=== PATIENT | male | born 1950 | race Caucasian/White ===

== ENCOUNTER 2017-06-18 09:01 | Outpatient (CLI) | payer MEDICARE ==
[~2017-06-18 09:01] MED LIST: ISOVUE-370 76%-LOCM 1 ML ONE
--- NOTE | 2017-06-18 14:30 | CT ---
CT ANGIOGRAM THORAX WITH IV CONTAST AND 3D RECONSTRUCTIONS: Date: 06-18-17 History: Pre-operative evaluation for ablation. Patient has atrial fibrillation. History of aortic va lve. Comparison: None available. FINDINGS: There is a triple lead left subclavian AICD device with RA, RV and coronary sinus leads. Vascular calcifications are seen in the coronary arteries as well as involving the aortic arch and or igins of the great vessels. No filling defects are seen in the pulmonary arteries to suggest a pulmonary embolus. The heart is enlarged. There is reflux of contrast into the IVC and subsequently into hepatic veins, likely related to cardiac decompensation. The left ventricle does appear dilated. The thoracic aorta is not opacified for evaluation of an aortic dissection. Thoracic aorta is normal in caliber. There are increased interstitial densities seen bilaterally which are predominately noted at the ana maría phery of the lungs bilaterally, most compatible with chronic interstitial fibrotic lung changes. IMPRESSION: 1. No CT evidence of a pulmonary embolus. 2. Cardiomegaly with dilatation of the left ventricle. 3. Chronic interstitial fibrotic lung changes. POS: [facility]
== END 2017-06-18 09:02 | disposition home or self-care (01) ==
LOC: CT 09:01
PROVIDERS: ATTEND Internal Medicine Cardiovascular Disease
DX: Z01.818 Encounter for other preprocedural examination (principal); I48.91 Unspecified atrial fibrillation; R06.02 Shortness of breath; I51.7 Cardiomegaly; J84.9 Interstitial pulmonary disease, unspecified
CPT/HCPCS: 36415; 71275; 82565; 84520

== ENCOUNTER 2017-10-16 09:06 | Day surgery (SDC) | payer MEDICARE ==
[2017-10-15 10:50] VITALS: BMI 16.0
--- NOTE | 2017-10-16 12:07 | OP ---
DATE OF PROCEDURE: 10/16/2017 PROCEDURE PERFORMED: Esophagogastroduodenoscopy with Koch dilatation. PHYSICIAN: Dr. Sam. ANESTHESIA: Medication given per Anesthesiology Department. PREPROCEDURE DIAGNOSES: Dysphagia, weight loss. POSTPROCEDURE DIAGNOSES: 1. Normal esophagus, status post empiric dilatation. 2. Normal stomach and duodenum. PROCEDURE IN DETAIL: A written consent was obtained prior to procedure. After adequate sedation, th e forward-viewing endoscope was advanced down the stomach under direct vision to the second portion o f the duodenum. Both the second portion of the bulb appeared normal. Pylorus was patent. The gastr ic antrum, body, fundus, and cardia all appeared normal. GE junction was located at 40 cm and appear ed normal. The esophageal lumen appeared normal without any endoluminal lesion or mass. The scope w as removed. Dilation was performed using a 48 [place] Koch with no resistance. Dilatation was the n performed with a 54-Gu[place] Koch with mild resistance. Repeat endoscopy did not show any complic ation or bleeding. The patient tolerated the procedure well. ASSESSMENT: 1. Status post esophageal dilatation with 48 [place]alan and 54-Guatemalan Koch dilator. 2. Visually normal upper endoscopy. PLAN: Follow up office in 3-4 weeks.
== END 2017-10-16 13:10 | disposition home or self-care (01) ==
LOC: SDC 09:06
PROVIDERS: ATTEND Internal Medicine Gastroenterology
PROC: 0D758ZZ Dilation of Esophagus, Via Natural or Artificial Opening Endoscopic (ICD-10-PCS; principal; 2017-10-16)
DX: R13.10 Dysphagia, unspecified (principal); R63.4 Abnormal weight loss; Z98.890 Other specified postprocedural states

== ENCOUNTER 2017-12-17 07:45 | Inpatient (IN) | payer MEDICARE ==
[2017-12-17 08:25] LABS: #Basophils 0.1 thou/uL (0.0-0.2); #Eosinphils 0.1 thou/uL (0.0-0.7); #Lymphocytes 2.7 thou/uL (1.20-3.40); #Monocytes 0.8 thou/uL (0.11-0.59); #Neutrophils 5.2 thou/uL (1.40-6.50); %Basophils 1.5 % (0.0-1.0); %Eosinophils 1.2 % (0.0-10.0); %Lymphocytes 30.2 % (21.0-51.0); %Monocytes 9.1 % (0.0-10.0); Hemoglobin 13.8 g/dL (14.0-18.0); Mean Corpuscular HGB CONC 32.6 g/dL (32.0-36.0); Mean Corpuscular Hemoglobin 29.7 pg (27.0-31.0); Mean Platelet Volume 8.1 fL (7.4-10.4); Platelet Count 322 thou/uL (130-400); RBC Distribution Width 15.3 % (11.5-14.5); Red Blood Cell (RBC) Count 4.66 mill/uL (4.70-6.10); White Blood Cell (WBC) Count 8.9 thou/uL (4.8-10.8)
[2017-12-17 08:48] LABS: ALT (SGPT) 19 U/L (8-55); AST (SGOT) 25 U/L (5-34); Alkaline Phosphatase 93 U/L (40-150); Anion Gap 12 mmol/L (10-20); BUN (Urea Nitrogen) 18 mg/dL (8.4-25.7); Bilirubin, Total 0.5 mg/dL (0.2-1.2); Calc. Creatinine Clearance 0 mL/min (70-130); Calcium 8.7 mg/dL (7.8-10.44); Carbon Dioxide 21 mmol/L (23-31); Chloride 106 mmol/L (98-107); Estimated GFR-MDRD 79; Globulin 3.7 g/dL (2.4-3.5); Glucose 112 mg/dL (80-115); Potassium 5.7 mmol/L (3.5-5.1); Protein, Total 7.7 g/dL (5.8-8.1); Sodium 133 mmol/L (136-145)
[2017-12-17] MEDS ORDERED: Nitroglycerin 2% Ointment 1 INCH/1 GM Packet ONE (08:49)
[2017-12-17 08:52] LABS: CKMB 1.5 ng/mL (0-6.6); Troponin I Less than 0.010 ng/mL (< 0.028)
[2017-12-17 08:53] LABS: Digoxin 0.46 ng/mL (0.8-2.0)
--- NOTE | 2017-12-17 09:21 | RAD ---
PORTABLE CHEST 1 VIEW: Date: 12/17/17 Time: 0710 hours HISTORY: Chest pain, dizziness, weakness. FINDINGS/IMPRESSION: Comparison made with exam of 03/17/12. The heart size is enlarged. Left-sided AICD remains in place. The aorta is tortuous. The lungs are we ll expanded with interval worsening of chronic gestational changes. No lobar consolidation, pneumotho races, kathi pulmonary edema, or pleural effusions are seen. POS: [facility]
[2017-12-17 09:45] LABS: Bilirubin Negative (Negative); Blood, Urine Negative (Negative); Clarity CLEAR (Clear); Glucose, Urine (Dipstick) Negative (Negative); Leukocyte Negative (Negative); Nitrite Negative (Negative); Protein, Urine (Dipstick) Trace mg/dL (Neg-Trace); Specific Gravity, Urine 1.019 (1.002-1.036); pH, Urine 6.5 (5.0-9.0)
[2017-12-17] MEDS ORDERED: Furosemide 40 MG/4 ML VIAL ONE (09:47)
--- NOTE | 2017-12-17 11:43 | HP ---
PRIMARY CARE PHYSICIAN: Dr. Joao Power. PRIMARY SAMPLER PICKUP: Dr. Mcallister. REASON FOR ADMISSION: Chest discomfort, dizziness, and generalized weakness. HISTORY OF PRESENT ILLNESS: A 67-year-old male, who has underlying history of paroxysmal atrial fibrillation on chronic anticoagulation with Eliquis, who came to emergency room with a complaint of acute onset of chest discomfort, dizziness, and generalized weakness, which was started around 6:00 this morning , the patient was feeling funny in his chest with a slight pressure without any significant amount of pain. He denies any syncope. He was feeling dizziness. He denies any associated diaphoresis, shortness of breath. He denies any fever or chills. He denies any UTI symptoms. He denies any constipation, diarrhea, melena, or hematochezia. The patient does not know his cardiac diagnosis other than he has atrial fibrillation and he required cardiac ablation in past. He also has defibrillator in place. He also had a cardiac catheterization several years ago. He last saw Dr. Mcallister early this year and he had echocardiography around in 04/2017. Today in the emergency room, the patient was hypertensive. He was saturating normal. His EKG was not showing any acute ischemic changes. His routine blood tests showed elevated BNP. His chest x-ray showed cardiomegaly with chronic changes. The patient denies any orthopnea, PND, or leg swelling. He denies any cough. He denies any pleuritic chest pain. He denies any melena or hematochezia. He denies any nausea or vomiting. PAST MEDICAL HISTORY: The patient does not know the diagnosis of congestive heart failure, but we are suspecting that this patient might have underlying either systolic or diastolic heart failure, paroxysmal atrial fibrillation, history of MD, coronary artery disease, hypothyroidism, chronic anticoagulation , peripheral vascular disease, and gout. PAST SURGICAL HISTORY: Cardiac ablation by Dr. Shashi Ramos. AICD placement, left femoral stent placement. PAST PSYCHIATRIC HISTORY: Reviewed and negative. SOCIAL HISTORY: The patient drinks occasionally. He denies any smoking. He denies any other illicit drug abuse. He is and lives at home with his . FAMILY HISTORY: No strong family history of premature coronary artery disease, stroke, or cancer. ALLERGIES: No known drug allergy. CURRENT HOME MEDICATIONS: Eliquis 5 mg p.o. b.i.d., Aldactone 25 mg p.o. daily , Synthroid 125 mcg p.o. daily, indomethacin 50 mg twice daily p.r.n., Coreg 3.125 mg twice daily, digoxin 125 mcg p.o. daily, and aspirin 81 mg p.o. daily. EMERGENCY ROOM COURSE: The patient is given Lasix 40 mg, aspirin 324 mg, nitropatch 1 inch IV fluid. REVIEW OF SYSTEMS: The following complete review of systems was negative, unless otherwise mentioned in the HPI or below: Constitutional: Weight loss or gain, ability to conduct usual activities. Skin: Rash, itching. Eyes: Double vision, pain. ENT/Mouth: Nose bleeding, neck stiffness, pain, tenderness. Cardiovascular: Palpitations, dyspnea on exertion, orthopnea. Respiratory: Shortness of breath, wheezing, cough, hemoptysis, fever or night sweats. Gastrointestinal: Poor appetite, abdominal pain, heartburn, nausea, vomiting, constipation, or diarrhea. Genitourinary: Urgency, frequency, dysuria, nocturia. Musculoskeletal: Pain, swelling. Neurologic/Psychiatric: Anxiety, depression. Allergy/Immunologic: Skin rash, bleeding tendency. Please see my HPI for pertinent positive and negative. All other review of systems reviewed and negative except as mentioned in HPI. PHYSICAL EXAMINATION: VITAL SIGNS: On arrival, blood pressure 171/119, pulse 80, respiratory rate 15 , temperature 97.7, saturation 98% on room air, and weight 55.7 kilograms. GENERAL: The patient is currently alert, awake, no obvious acute distress. HEENT: Head: Normocephalic, atraumatic. Eyes: Pupils round, reactive to light. Extraocular muscle intact. ENT: Oropharynx within normal limits. Moist mucous membrane, no oral lesion, no pharyngeal erythema, no exudate. NECK: Supple, no JVD, no thyromegaly, no carotid bruit, no jugular venous distention. LUNGS: Bibasilar rales noted. No wheezing, no rhonchi, no accessory muscles of respiration in use. CARDIAC: S1 and S2 appears regular. No murmur elicited, no gallop, no rub. ABDOMEN: Soft, bowel sounds present, nontender, nondistended. No organomegaly , no mass, no suprapubic tenderness. BACK: Unremarkable, no CVA tenderness. EXTREMITIES: Upper extremities: Passive movement of all joints are normal. Lower extremities: No edema. Good peripheral pulsation. SKIN: No skin rash. HEMATOLOGICAL: No lymphadenopathy. PSYCHIATRIC: Normal affect. NEUROLOGIC: Nonfocal examination. The patient is moving all four limbs. Nonfocal neurological examination. SIGNIFICANT LABORATORY DATA: EKG showing normal sinus rhythm, nonspecific ST-T changes. Chest x-ray showing cardiomegaly, tortuous aorta. CBC: WBC 8.9, hemoglobin 13.8, platelets 322. Chest x-ray showing cardiomegaly, left-sided AICD in place, tortuous aorta, chronic changes. BNP 1292.2. Digoxin level 0.46, CK-MB 1.5, troponin I less than 0.010. Magnesium 2.0. BMP: Sodium 133, potassium 5.7, chloride 106, carbon dioxide 21, BUN 18, creatinine 0.95, glucose 112, and calcium 8.7. Protein 7.7, albumin 4.0, alkaline phosphatase 93, AST 25, ALT 19. Urinalysis normal. ASSESSMENT AND PLAN: 1. Chest discomfort, dizziness, and generalized weakness. At this point, etiology uncertain, but given he has history of congestive heart failure and he has AICD in place. We will interrogate his pacemaker/defibrillator to look for any event. We will monitor on telemetry floor. We will do serial cardiac enzymes and rule out acute coronary syndrome. We will check lipid profile for risk stratification. We will also check TSH tomorrow. 2. Acute on chronic congestive heart failure exacerbation, suspecting systolic , given AICD in place as well as coronary artery disease and peripheral vascular disease history. We will obtain echocardiography. We will try to get medical record from [facility] for his previous cardiac workup. Meanwhile, treat with Lasix 20 mg IV b.i.d. We will continue with Coreg 3.125 mg p.o. b.i.d. We will hold on Aldactone tab because of hyperkalemia. We will also hold on VIMAL inhibitor or ARB because of hyperkalemia. 3. Paroxysmal atrial fibrillation, currently in sinus rhythm. We will continue Coreg 3.125 mg twice daily, digoxin 125 mcg p.o. daily, chronic anticoagulation with Eliquis 5 mg p.o. b.i.d. 4. Hypothyroidism. Continue Synthroid 125 mcg p.o. daily and check TSH tomorrow. 5. Coronary artery disease with peripheral vascular disease. Continue aspirin daily. We will check lipid profile and start Lipitor therapy. 6. Protein calorie malnutrition, mild. Diet reeducation given. The patient will need nutritional supplement while in hospital. 7. Gout. We will use indomethacin p.r.n. basis. 8. Deep venous thrombosis prophylaxis not needed because the patient is already on chronic anticoagulation therapy. Gastrointestinal prophylaxis, Pepcid 20 mg p.o. b.i.d. 9. Hyperkalemia, likely due to iatrogenic from Aldactone. We will hold on that medication and we will repeat BMP tomorrow. Disposition plan based on clinical course. We are expecting patient's stay in hospital 24 hours. Plan of care discussed with the patient and his at bedside in the emergency room. RAFFI
[2017-12-17 11:53] LABS: Troponin I Less than 0.010 ng/mL (< 0.028)
[2017-12-17] MEDS ORDERED: Ondansetron HCl/PF 4 MG/2 ML Vial IVP PRN ×2 (11:55→12:08)
[2017-12-17] MEDS ORDERED: Ondansetron ODT 4 MG TAB SL PRN (11:55)
[2017-12-17] MEDS ORDERED: Sodium Chloride 0.9% 1,000 ML IV SCH (11:55)
[2017-12-17] MEDS ORDERED: Milk Of Magnesia 30 ML UDCUP PO PRN (12:08)
[2017-12-17] MEDS ORDERED: Zolpidem Tartrate 5 MG TAB PO PRN (12:08)
[2017-12-17] MEDS ORDERED: Loperamide HCl 2 MG CAP PO PRN (12:08)
[2017-12-17] MEDS ORDERED: Loratadine 10 MG TAB PO PRN (12:08)
[2017-12-17] MEDS ORDERED: Diabetic Tussin 200 MG/10 ML UDCUP PO PRN (12:08)
[2017-12-17] MEDS ORDERED: hydrALAZINE 20 MG/ML VIAL SLOW IVP PRN (12:08)
[2017-12-17] MEDS ORDERED: HYDROcodone/Acetaminophen 5/325 mg Tablet PO PRN (12:08)
[2017-12-17] MEDS ORDERED: Sodium Chloride 0.65% Nasal 44 ML BOT EA NARE PRN (12:08)
[2017-12-17] MEDS ORDERED: Mag-Al 1200 mg/1200 mg/30 ML UDCUP PO PRN (12:08)
[2017-12-17] MEDS ORDERED: Senokot 8.6 MG TAB PO PRN (12:08)
[2017-12-17] MEDS ORDERED: Nitroglycerin 0.4 MG TAB (25 Tab Bottle) SL PRN (12:08)
[2017-12-17] MEDS ORDERED: Eucerin (Mineral Oil/Petrolatum,White) 30 gm Jar TOP PRN (12:08)
[2017-12-17] MEDS ORDERED: Acetaminophen 325 MG TAB PO PRN (12:08)
[2017-12-17] MEDS ORDERED: Ondansetron ODT 4 MG TAB PO PRN (12:08)
[2017-12-17] MEDS ORDERED: Artificial Tears 18 DROP/0.9 ML EA EYE PRN (12:08)
[2017-12-17] MEDS ORDERED: Chloraseptic Spray 180 ml Bottle PO PRN (12:08)
[2017-12-17 13:00] VITALS: BMI 16.4
[2017-12-17] MEDS ORDERED: Nitroglycerin 2% Ointment 1 INCH/1 GM Packet TOP SCH (14:00)
[2017-12-17] MEDS: Furosemide 20 MG/2 ML VIAL SLOW IVP SCH (16:15)
--- NOTE | 2017-12-17 16:43 | CON ---
DATE OF CONSULTATION: 12/17/2017 REASON FOR CONSULTATION: Acute on chronic systolic heart failure. HISTORY OF PRESENT ILLNESS: Mr. Patel is a pleasant 67-year-old gentleman who is a patient of Dr. Sarah Mcallister. He gives a history of having 7 to 8-day of myocardial infarctions, although has not ledbetter d any stent implants noted to his coronary arteries. The history is somewhat vague. He is difficult to give specific answers to questions. He continues to want to discuss previous interventions to hi s lower extremities and not so much concerned about his shortness of breath. He does state he has had shortness of breath with mild lower extremity edema. His main complaint nathaly t brought him into the hospital was dizziness and lightheadedness. No syncope, presyncope or other a ssociated symptoms. PAST MEDICAL HISTORY: Systolic heart failure, status post ICD placement, paroxysmal atrial fibrillat ion, previous [place], CAD, hypothyroidism, gout, atrial fibrillation ablation, PVD, status post stent valerie cement. He had an aortobifemoral bypass with a repeat aortobifemoral bypass and stent placement to t he iliac artery. SOCIAL HISTORY: No current tobacco or alcohol use. ALLERGIES: None. MEDICATIONS: Include Eliquis, Aldactone, indomethacin, Coreg, digoxin and aspirin, Synthroid. REVIEW OF SYSTEMS: Ten-point review of systems are reviewed and as above, otherwise negative. PHYSICAL EXAMINATION: VITAL SIGNS: Blood pressure 139/91, pulse 72, temperature 97.7. GENERAL: Patient is a pleasant male who is in no acute distress. The patient appears his stated age . NEUROLOGIC: The patient is alert and oriented times 3 with no focal neurologic deficits. HEENT: Sclerae without icterus. Mouth has moist mucous membranes with normal pallor. NECK: No JVD. Carotid upstroke brisk. No bruits bilaterally. LUNGS: Deep crackles noted bilaterally. BACK: No scoliosis or kyphosis. CARDIAC: Regular rate and rhythm with normal S1 and S2. No S3 or S4 noted. No significant rubs, murmurs, thrills, or gallops noted throughout the precordium. PMI is not displa cherie. There is no parasternal heave. ABDOMEN: Soft, nontender, nondistended. No peritoneal signs present. No hepatosplenomegaly. No abnormal striae. EXTREMITIES: No significant edema. SKIN: No gross abnormalities. PERTINENT LABORATORY DATA: Hemoglobin 13.9. BNP of 1292, globulin 3.7, sodium 133, potassium 5.7. ICD interrogation does suggest two brief episodes of ventricular tachycardia lasting 4 and 6 seconds and were self-limited. IMPRESSION: 1. Acute on chronic systolic heart failure. 2. Coronary artery disease. 3. Severe peripheral vascular disease. RECOMMENDATIONS: Continue current therapy with aspirin in addition to carvedilol, digoxin. He was p laced on Lasix at 20 mg IV b.i.d., will increase to 40 mg and reassess in a.m. We will review his ec ho. Otherwise, I have no recommendations.
[2017-12-17] MEDS: Carvedilol 3.125 MG TAB PO SCH (21:13)
[2017-12-17] MEDS: Apixaban 5 MG TAB PO SCH (21:13)
[2017-12-17] MEDS: Famotidine 20 MG TAB PO SCH (21:13)
[2017-12-18] MEDS: Levothyroxine Sodium 100 MCG TAB PO SCH (05:42)
[2017-12-18] MEDS: Furosemide 20 MG/2 ML VIAL SLOW IVP SCH ×2 (05:42→14:06)
[2017-12-18 05:54] LABS: Anion Gap 10 mmol/L (10-20); Calc. Creatinine Clearance 69 mL/min (70-130); Calcium 8.3 mg/dL (7.8-10.44); Carbon Dioxide 26 mmol/L (23-31); Cardiac Risk 4.9 (Less than 4.5); Chloride 102 mmol/L (98-107); Cholesterol 133 mg/dl (< 200 Desired); Estimated GFR-MDRD Greater than 90; Glucose 94 mg/dL (80-115); HDL Cholesterol 27 mg/dL (>60 Neg Risk); LDL Cholesterol, Calculated 91 mg/dL; Potassium 4.9 mmol/L (3.5-5.1); Sodium 133 mmol/L (136-145); Triglycerides 75 mg/dL (Less than 150)
[2017-12-18 05:57] LABS: CKMB 1.3 ng/mL (0-6.6); Troponin I Less than 0.010 ng/mL (< 0.028)
[2017-12-18 06:23] LABS: Acanthocytes SLIGHT = 1-5 cells (100X) (None Seen); Band 1 % (5-11); Eosinophils 1 % (0-10); Hemoglobin 13.5 g/dL (14.0-18.0); Lymphocytes 23 % (21-51); MDiff Complete? YES; Mean Corpuscular HGB CONC 33.1 g/dL (32.0-36.0); Mean Corpuscular Hemoglobin 30.4 pg (27.0-31.0); Mean Corpuscular Volume 91.6 fl (80.0-94.0); Mean Platelet Volume 8.8 fL (7.4-10.4); Monocytes 14 % (0-10); Neutrophil 59 % (42-75); Platelet Count 322 thou/uL (130-400); RBC Distribution Width 15.2 % (11.5-14.5); Reactive Lymphocytes 2 % (0-10); Red Blood Cell (RBC) Count 4.45 mill/uL (4.70-6.10)
[2017-12-18 06:45] LABS: BUN (Urea Nitrogen) 24 mg/dL (8.4-25.7)
[2017-12-18] MEDS: Digoxin 0.125 MG TAB PO SCH (09:17)
[2017-12-18] MEDS: Apixaban 5 MG TAB PO SCH ×2 (09:17→20:41)
[2017-12-18] MEDS: Famotidine 20 MG TAB PO SCH ×2 (09:18→20:41)
[2017-12-18] MEDS: Carvedilol 3.125 MG TAB PO SCH ×2 (09:18→20:41)
--- NOTE | 2017-12-18 10:16 | PDOC.PN ---
- Subjective Encounter Start Date: 12/18/17 Encounter Start Time: 07:00 -: old records requested/rev Patient seen and examined. No new complaints. No overnight events he feels better, had NSVT on monitor - Objective Resuscitation Status: Resuscitation Status FULL:Full Resuscitation MAR Reviewed: Yes Vital Signs & Weight: Vital Signs (12 hours) Temp Pulse Resp BP BP Pulse Ox 12/18/17 09:17 78 12/18/17 07:58 97.2 F L 78 17 98 12/18/17 07:51 97.2 F L 78 17 103/74 98 12/18/17 04:00 97.6 F 71 16 100/59 L 97 12/18/17 00:00 97.8 F 75 18 113/70 113/70 98 Weight Admit Weight 120 lb 14.4 oz Weight 120 lb 14.4 oz I&O: 12/17/17 12/18/17 12/19/17 06:59 06:59 06:59 Intake Total 920 240 Output Total 1690 Balance -770 240 Result Diagrams: 12/18/17 05:00 12/18/17 05:00 Radiology Reviewed by me: Yes (echo) EKG Reviewed by me: Yes (NSVT noted) Phys Exam - Physical Examination Constitutional: NAD HEENT: PERRLA, moist MMs, sclera anicteric Neck: no JVD, supple Respiratory: no wheezing, no rhonchi few base rales Cardiovascular: RRR, no rub SM+ Gastrointestinal: soft, non-tender, no distention, positive bowel sounds Musculoskeletal: no edema, pulses present Neurological: non-focal, normal sensation, moves all 4 limbs Lymphatic: no nodes Psychiatric: normal affect, A&O x 3 Skin: no rash, normal turgor, cap refill <2 seconds Dx/Plan (1) Acute on chronic systolic ACC/AHA stage C congestive heart failure Code(s): I50.23 - ACUTE ON CHRONIC SYSTOLIC (CONGESTIVE) HEART FAILURE Status : Acute (2) Chest pain Code(s): R07.9 - CHEST PAIN, UNSPECIFIED Status: Acute (3) Hyperkalemia Code(s): E87.5 - HYPERKALEMIA Status: Resolved (4) NSVT (nonsustained ventricular tachycardia) Code(s): I47.2 - VENTRICULAR TACHYCARDIA Status: Acute (5) AICD (automatic cardioverter/defibrillator) present Code(s): Z95.810 - PRESENCE OF AUTOMATIC (IMPLANTABLE) CARDIAC DEFIBRILLATOR Status: Chronic (6) CAD (coronary artery disease) Code(s): I25.10 - ATHSCL HEART DISEASE OF [place] CORONARY ARTERY W/O ANG PCTRS Status: Chronic (7) Chronic anticoagulation Code(s): Z79.01 - JAIL (CURRENT) USE OF ANTICOAGULANTS Status: Chronic (8) Dyslipidemia Code(s): E78.5 - HYPERLIPIDEMIA, UNSPECIFIED Status: Chronic (9) Gout Code(s): M10.9 - GOUT, UNSPECIFIED Status: Chronic (10) Hypertension Code(s): I10 - ESSENTIAL (PRIMARY) HYPERTENSION Status: Chronic (11) Hypothyroidism Code(s): E03.9 - HYPOTHYROIDISM, UNSPECIFIED Status: Chronic (12) Paroxysmal atrial fibrillation Code(s): I48.0 - PAROXYSMAL ATRIAL FIBRILLATION Status: Chronic (13) Protein-calorie malnutrition, mild Code(s): E44.1 - MILD PROTEIN-CALORIE MALNUTRITION Status: Chronic - Plan cont current plan of care * medication reviewed as below * symptomatic treatment * echo result pending * today will get medical record from [facility] Right cardiology on case * continue lasix * ? need of amiodaron for NSVT will defer to cardiology. Review of Systems - Review of Systems Eyes: negative: Pain, Vision Change, Conjunctivae Inflammation, Eyelid Inflammation, Redness, Other ENT: negative: Ear Pain, Ear Discharge, Nose Pain, Nose Discharge, Nose Congestion, Mouth Pain, Mouth Swelling, Throat Pain, Throat Swelling, Other Respiratory: SOB with Excertion. negative: Cough, Dry, Shortness of Breath, Hemoptysis, Pleuritic Pain, Sputum, Wheezing Cardiovascular: negative: chest pain, palpitations, orthopnea, paroxysmal nocturnal dyspnea, edema, light headedness, other Gastrointestinal: negative: Nausea, Vomiting, Abdominal Pain, Diarrhea, Constipation, Melena, Hematochezia, Other Genitourinary: negative: Dysuria, Frequency, Incontinence, Hematuria, Retention , Other Musculoskeletal: negative: Neck Pain, Shoulder Pain, Arm Pain, Back Pain, Hand Pain, Leg Pain, Foot Pain, Other Skin: negative: Rash, Lesions, Dario, Bruising, Other - Medications/Allergies Allergies/Adverse Reactions: Allergies Allergy/AdvReac Type Severity Reaction Status Date / Time No Known Allergies Allergy Verified 12/17/17 12:02 Medications: Current Medications Acetaminophen (Tylenol) 650 mg PO Q4H PRN PRN Reason: Headache/Fever or Pain Hydrocodone Bitart/Acetaminophen ([place] 5/325) 1 tab PO Q4H PRN PRN Reason: Moderate Pain (4-6) Al Hydroxide/Mg Hydroxide (Maalox) 30 ml PO Q6H PRN PRN Reason: Heartburn or Indigestion Apixaban (Eliquis) 5 mg PO BID COUNTS INCLUDE 234 BEDS AT THE [facility] Last Admin: 12/18/17 09:17 Dose: 5 mg Artificial Tears (Tears Naturale) 0 drop EA EYE PRN PRN PRN Reason: Dry Eyes Aspirin (Aspirin Chewable) 81 mg PO DAILY COUNTS INCLUDE 234 BEDS AT THE [facility] Last Admin: 12/18/17 09:18 Dose: 81 mg Carvedilol (Coreg) 3.125 mg PO BID COUNTS INCLUDE 234 BEDS AT THE [facility] Last Admin: 12/18/17 09:18 Dose: 3.125 mg Digoxin (Lanoxin) 0.125 mg PO DAILY COUNTS INCLUDE 234 BEDS AT THE [facility] Last Admin: 12/18/17 09:17 Dose: 0.125 mg Famotidine (Pepcid) 20 mg PO BID COUNTS INCLUDE 234 BEDS AT THE [facility] Last Admin: 12/18/17 09:18 Dose: 20 mg Furosemide (Lasix) 20 mg SLOW IVP 0600,1400 COUNTS INCLUDE 234 BEDS AT THE [facility] Last Admin: 12/18/17 05:42 Dose: 20 mg Guaifenesin (Robitussin Sf) 200 mg PO Q4H PRN PRN Reason: Cough Hydralazine HCl (Apresoline) 10 mg SLOW IVP Q4H PRN PRN Reason: Systolic BP > 180 Levothyroxine Sodium (Synthroid) 100 mcg PO 0600 COUNTS INCLUDE 234 BEDS AT THE [facility] Last Admin: 12/18/17 05:42 Dose: 100 mcg Loperamide HCl (Imodium) 2 mg PO PRN PRN PRN Reason: Diarrhea/Loose Stools Loratadine (Claritin) 10 mg PO DAILYPRN PRN PRN Reason: Sinus Symptoms Magnesium Hydroxide (Milk Of Magnesium) 30 ml PO DAILYPRN PRN PRN Reason: Constipation Mineral Oil/White Petrolatum (Eucerin Cream) 0 gm TOP BIDPRN PRN PRN Reason: Dry Skin Nitroglycerin (Nitrostat) 0.4 mg SL Q5MIN PRN PRN Reason: Chest Pain Ondansetron HCl (Zofran Odt) 4 mg PO Q6H PRN PRN Reason: Nausea/Vomiting Ondansetron HCl (Zofran) 4 mg IVP Q6H PRN PRN Reason: Nausea/Vomiting Phenol (Chloraseptic Machias 180 Ml Bot) 0 ml PO PRN PRN PRN Reason: Sore Throat Senna (Senokot) 2 tab PO HSPRN PRN PRN Reason: Constipation Sodium Chloride ([place] Nasal [place] 0.65%) 0 ml EA NARE QIDPRN PRN PRN Reason: Nasal Congestion Zolpidem Tartrate (Ambien) 5 mg PO HSPRN PRN PRN Reason: Insomnia
--- NOTE | 2017-12-18 16:49 | PDOC.CTH ---
Cardiology Progress Note - Subjective Patient without complaint. Feeling much better today. - Objective Vital Signs Temp Pulse Resp BP Pulse Ox 12/18/17 12:00 97.5 F L 74 16 101/70 97 12/18/17 09:17 78 12/18/17 07:58 97.2 F L 78 17 98 12/18/17 07:51 97.2 F L 78 17 103/74 98 Admit Weight 120 lb 14.4 oz Weight 120 lb 14.4 oz 12/17/17 12/18/17 12/19/17 06:59 06:59 06:59 Intake Total 920 360 Output Total 1690 Balance -770 360 - Physical Examination General/Neuro: alert & oriented x3 Lungs: other: (few rales at bases) Heart: RRR Abdomen: NT/ND Other PE findings: decreased pedal pulses - Labs Result Diagrams: 12/18/17 05:00 12/18/17 05:00 Troponin/CKMB CK-MB (CK-2) 1.3 ng/mL (0-6.6) 12/18/17 05:00 Troponin I Less than 0.010 ng/mL (< 0.028) 12/18/17 05:00 - Assessment/Plan 1. Acute on chronic systolic CHF - continue diuresis. Probable home tomorrow. Can f/u with primary control operator flow coat Dr. Mcallister. 2. Severe PVD - moderate claudication that is unchanged. No changes today.
[2017-12-19] MEDS: Levothyroxine Sodium 100 MCG TAB PO SCH (05:27)
[2017-12-19] MEDS: Furosemide 20 MG/2 ML VIAL SLOW IVP SCH (05:27)
[2017-12-19] MEDS: Digoxin 0.125 MG TAB PO SCH (08:20)
[2017-12-19] MEDS: Apixaban 5 MG TAB PO SCH (08:20)
[2017-12-19] MEDS: Famotidine 20 MG TAB PO SCH (08:20)
[2017-12-19] MEDS: Carvedilol 3.125 MG TAB PO SCH (08:20)
--- NOTE | 2017-12-19 09:33 | PDOC.CTH ---
Cardiology Progress Note - Subjective No complaints today. Overall is feeling much better. Wants to go home. - Objective Vital Signs Temp Pulse Resp BP Pulse Ox 12/19/17 08:20 76 12/19/17 04:00 97.4 F L 76 16 110/69 97 Admit Weight 120 lb 14.4 oz Weight 116 lb 4.8 oz 12/18/17 12/19/17 12/20/17 06:59 06:59 06:59 Intake Total 920 1332 Output Total 1690 950 Balance -770 382 - Physical Examination General/Neuro: alert & oriented x3 Neck: no JVD present Lungs: CTA Heart: RRR Abdomen: NT/ND Extremities: other: (no edema) - Telemetry Telemetry Rhythm: SR, BBB - Labs Result Diagrams: 12/18/17 05:00 12/18/17 05:00 Troponin/CKMB CK-MB (CK-2) 1.3 ng/mL (0-6.6) 12/18/17 05:00 Troponin I Less than 0.010 ng/mL (< 0.028) 12/18/17 05:00 - Assessment/Plan 1. Acute on chronic systolic CHF - Overall much improved. Asymptomatic. Discussed ECHO findings. He tells me that he was taken off lasix post-ablation by [facility] and thinks this is when the fluid might have started to build. Advised him to f/u with primary entry level accounting clerk and PCP. 2. Severe PVD - moderate claudication that is unchanged. 3. Hypothyroidism - he is aware and says his meds are being adjusted by Dr. Power. He will schedule a f/u with him. 4. PSVT - short run. Continue current meds 5. NSVT - ICD in place. Short runs. Has f/u with EP next week.
[2017-12-19 09:48] VITALS: BP 116/77; TEMP 97.5
--- NOTE | 2017-12-19 10:15 | PDOC.PN ---
- Subjective Encounter Start Date: 12/19/17 Encounter Start Time: 07:20 Patient seen and examined. No new complaints. No overnight events - Objective Resuscitation Status: Resuscitation Status FULL:Full Resuscitation MAR Reviewed: Yes Vital Signs & Weight: Vital Signs (12 hours) Temp Pulse Resp BP Pulse Ox 12/19/17 08:20 76 12/19/17 08:00 97.5 F L 77 16 116/77 97 12/19/17 04:00 97.4 F L 76 16 110/69 97 Weight Admit Weight 120 lb 14.4 oz Weight 116 lb 4.8 oz I&O: 12/18/17 12/19/17 12/20/17 06:59 06:59 06:59 Intake Total 920 1332 Output Total 1690 950 Balance -770 382 Result Diagrams: 12/18/17 05:00 12/18/17 05:00 EKG Reviewed by me: Yes (nsr) Phys Exam - Physical Examination Constitutional: NAD HEENT: PERRLA, moist MMs, sclera anicteric Neck: no JVD, supple Respiratory: no wheezing, no rales, no rhonchi Cardiovascular: RRR, no significant murmur, no rub Gastrointestinal: soft, non-tender, no distention, positive bowel sounds Musculoskeletal: no edema, pulses present Neurological: non-focal, normal sensation, moves all 4 limbs Lymphatic: no nodes Psychiatric: normal affect, A&O x 3 Skin: no rash, normal turgor Dx/Plan (1) Acute on chronic systolic ACC/AHA stage C congestive heart failure Code(s): I50.23 - ACUTE ON CHRONIC SYSTOLIC (CONGESTIVE) HEART FAILURE Status : Acute (2) Chest pain Code(s): R07.9 - CHEST PAIN, UNSPECIFIED Status: Acute (3) Hyperkalemia Code(s): E87.5 - HYPERKALEMIA Status: Resolved (4) NSVT (nonsustained ventricular tachycardia) Code(s): I47.2 - VENTRICULAR TACHYCARDIA Status: Acute (5) AICD (automatic cardioverter/defibrillator) present Code(s): Z95.810 - PRESENCE OF AUTOMATIC (IMPLANTABLE) CARDIAC DEFIBRILLATOR Status: Chronic (6) CAD (coronary artery disease) Code(s): I25.10 - ATHSCL HEART DISEASE OF [place] CORONARY ARTERY W/O ANG PCTRS Status: Chronic (7) Chronic anticoagulation Code(s): Z79.01 - CAREER DEVELOPMENT SPECIALIST (CURRENT) USE OF ANTICOAGULANTS Status: Chronic (8) Dyslipidemia Code(s): E78.5 - HYPERLIPIDEMIA, UNSPECIFIED Status: Chronic (9) Gout Code(s): M10.9 - GOUT, UNSPECIFIED Status: Chronic (10) Hypertension Code(s): I10 - ESSENTIAL (PRIMARY) HYPERTENSION Status: Chronic (11) Hypothyroidism Code(s): E03.9 - HYPOTHYROIDISM, UNSPECIFIED Status: Chronic (12) Paroxysmal atrial fibrillation Code(s): I48.0 - PAROXYSMAL ATRIAL FIBRILLATION Status: Chronic (13) Protein-calorie malnutrition, mild Code(s): E44.1 - MILD PROTEIN-CALORIE MALNUTRITION Status: Chronic - Plan cont current plan of care * continue current medication as below * symptomatic treatment * add lisinopril 2.5 mg and lsix 20 mg daily * see discharge summery * stable for discharge. Review of Systems - Review of Systems Eyes: negative: Pain, Vision Change, Conjunctivae Inflammation, Eyelid Inflammation, Redness, Other ENT: negative: Ear Pain, Ear Discharge, Nose Pain, Nose Discharge, Nose Congestion, Mouth Pain, Mouth Swelling, Throat Pain, Throat Swelling, Other Respiratory: negative: Cough, Dry, Shortness of Breath, Hemoptysis, SOB with Excertion, Pleuritic Pain, Sputum, Wheezing Cardiovascular: negative: chest pain, palpitations, orthopnea, paroxysmal nocturnal dyspnea, edema, light headedness, other Gastrointestinal: negative: Nausea, Vomiting, Abdominal Pain, Diarrhea, Constipation, Melena, Hematochezia, Other Genitourinary: negative: Dysuria, Frequency, Incontinence, Hematuria, Retention , Other Musculoskeletal: negative: Neck Pain, Shoulder Pain, Arm Pain, Back Pain, Hand Pain, Leg Pain, Foot Pain, Other Skin: negative: Rash, Lesions, Dario, Bruising, Other - Medications/Allergies Allergies/Adverse Reactions: Allergies Allergy/AdvReac Type Severity Reaction Status Date / Time No Known Allergies Allergy Verified 12/17/17 12:02 Medications: Current Medications Acetaminophen (Tylenol) 650 mg PO Q4H PRN PRN Reason: Headache/Fever or Pain Hydrocodone Bitart/Acetaminophen ([place] 5/325) 1 tab PO Q4H PRN PRN Reason: Moderate Pain (4-6) Al Hydroxide/Mg Hydroxide (Maalox) 30 ml PO Q6H PRN PRN Reason: Heartburn or Indigestion Apixaban (Eliquis) 5 mg PO BID [facility] Last Admin: 12/19/17 08:20 Dose: 5 mg Artificial Tears (Tears Naturale) 0 drop EA EYE PRN PRN PRN Reason: Dry Eyes Aspirin (Aspirin Chewable) 81 mg PO DAILY [facility] Last Admin: 12/19/17 08:20 Dose: 81 mg Carvedilol (Coreg) 3.125 mg PO BID [facility] Last Admin: 12/19/17 08:20 Dose: 3.125 mg Digoxin (Lanoxin) 0.125 mg PO DAILY [facility] Last Admin: 12/19/17 08:20 Dose: 0.125 mg Famotidine (Pepcid) 20 mg PO BID [facility] Last Admin: 12/19/17 08:20 Dose: 20 mg Furosemide (Lasix) 20 mg SLOW IVP 0600,1400 [facility] Last Admin: 12/19/17 05:27 Dose: 20 mg Guaifenesin (Robitussin Sf) 200 mg PO Q4H PRN PRN Reason: Cough Hydralazine HCl (Apresoline) 10 mg SLOW IVP Q4H PRN PRN Reason: Systolic BP > 180 Levothyroxine Sodium (Synthroid) 100 mcg PO 0600 [facility] Last Admin: 12/19/17 05:27 Dose: 100 mcg Loperamide HCl (Imodium) 2 mg PO PRN PRN PRN Reason: Diarrhea/Loose Stools Loratadine (Claritin) 10 mg PO DAILYPRN PRN PRN Reason: Sinus Symptoms Magnesium Hydroxide (Milk Of Magnesium) 30 ml PO DAILYPRN PRN PRN Reason: Constipation Mineral Oil/White Petrolatum (Eucerin Cream) 0 gm TOP BIDPRN PRN PRN Reason: Dry Skin Nitroglycerin (Nitrostat) 0.4 mg SL Q5MIN PRN PRN Reason: Chest Pain Ondansetron HCl (Zofran Odt) 4 mg PO Q6H PRN PRN Reason: Nausea/Vomiting Ondansetron HCl (Zofran) 4 mg IVP Q6H PRN PRN Reason: Nausea/Vomiting Phenol (Chloraseptic [place] 180 Ml Bot) 0 ml PO PRN PRN PRN Reason: Sore Throat Senna (Senokot) 2 tab PO HSPRN PRN PRN Reason: Constipation Sodium Chloride ([place] Nasal [place] 0.65%) 0 ml EA NARE QIDPRN PRN PRN Reason: Nasal Congestion Zolpidem Tartrate (Ambien) 5 mg PO HSPRN PRN PRN Reason: Insomnia
--- NOTE | 2017-12-19 12:16 | DIS ---
DATE OF ADMISSION: 12/17/2017 DATE OF DISCHARGE: 12/19/2017 PRIMARY CARE PHYSICIAN: Joao Power M.D. DISCHARGE DISPOSITION: Home. PRIMARY DISCHARGE DIAGNOSES: Acute on chronic systolic congestive heart failure stage C, chest pain ruled out acute coronary syndrome, nonsustained ventricular tachycardia, hyperkalemia, resolved. SECONDARY DISCHARGE DIAGNOSES: Protein calorie malnutrition mild, paroxysmal atrial fibrillation, pe ripheral arterial disease, hypothyroidism, hypertension, gout, dyslipidemia, chronic anticoagulation, coronary artery disease, AICD in place, chronic systolic heart failure. PRIMARY PROCEDURE/OPERATION: None. RADIOLOGICAL INVESTIGATION: Chest x-ray showed pulmonary vascular congestion. Echocardiography show ed EF 10%-15%. SIGNIFICANT LABORATORY DATA: WBC 9.0, hemoglobin 13.5, platelet 322. Sodium 133, creatinine 0.82. Cardiac enzymes negative x3. LDL 91, TSH 6.74, BNP 1292. Urinalysis normal. Digoxin level 0.46. DISCHARGE MEDICATIONS: Eliquis 5 mg p.o. b.i.d., aspirin 81 mg p.o. daily, Coreg 3.125 mg p.o. b.i.d ., digoxin 125 mcg p.o. daily, Lasix 20 mg p.o. daily, indomethacin 25 mg p.o. b.i.d. p.r.n., Synthro id 300 mcg p.o. daily, lisinopril 2.5 mg p.o. daily, and Aldactone 25 mg p.o. daily. CONTRAINDICATIONS: None. CODE STATUS: FULL CODE. INPATIENT IN MOLD COATER: Dr. Batres was consulted while in hospital. TEST RESULTS PENDING ON DISCHARGE: None. ALLERGIES: No known drug allergy. DISCHARGE PLAN: Post hospital, patient will follow up with Dr. Joao Power on 12/24/2017 at 8:30 a.m . Patient will follow up with Dr. Mcallister as instructed. HOSPITAL COURSE: A 67-year-old male who was admitted by me for acute on chronic congestive heart cristin lure exacerbation. He was having increasing shortness of breath. Please see my HPI for further deta il. Patient was also having acute onset of chest pain, dizziness, weakness during nighttime and that is why he came to emergency room. We interrogated his AICD and found that he had nonsustained ventr icular tachycardia. On telemetry floor, he also had nonsustained ventricular tachycardia. Cardiolog y was consulted. We did echocardiography, which showed EF 10%-15% with systolic and diastolic dysfun ction. While in hospital, we treated him with Lasix with significant improvement. He had potassium elevated upon admission, but it was improved and at that point, we resumed Aldactone. We also added lisinopril for his systolic heart failure. Patient is doing very well. He is on room air. He is ambulatory. He is completely asymptomatic and he wants to go home today. The patient is seen and examined at bedside today. Cardiology cleared him for discharge. Please see my progress note from today for further detail.
== END 2017-12-19 11:21 | disposition home or self-care (01) | DRG 292 ==
LOC: ERS 07:45 → 2NO 11:54
PROVIDERS: ADMIT Internal Medicine; ATTEND Internal Medicine
DX: I11.0 Hypertensive heart disease with heart failure (principal); I47.2 Ventricular tachycardia; E44.1 Mild protein-calorie malnutrition; Z68.1 Body mass index [BMI] 19.9 or less, adult; I50.23 Acute on chronic systolic (congestive) heart failure; E87.5 Hyperkalemia; I48.0 Paroxysmal atrial fibrillation; I25.10 Atherosclerotic heart disease of native coronary artery without angina pectoris; Z95.810 Presence of automatic (implantable) cardiac defibrillator; Z79.01 Long term (current) use of anticoagulants; E78.5 Hyperlipidemia, unspecified; E03.9 Hypothyroidism, unspecified; M10.9 Gout, unspecified; I73.9 Peripheral vascular disease, unspecified; Z95.5 Presence of coronary angioplasty implant and graft; Z79.82 Long term (current) use of aspirin
CPT/HCPCS: 36415; 71045; 80048; 80053; 80061; 80162; 81003; 82553; 83735; 83880; 84443; 84484; 85025; 93005; 93306; 93798; 96361; 96374; J1940

== ENCOUNTER 2018-12-29 17:42 | Observation (INO) | payer MEDICARE ==
--- NOTE | 2018-12-29 18:28 | RAD ---
EXAM: Single view of the chest HISTORY: Chest pain and shortness of breath COMPARISON: 12/17/2017 FINDINGS: Single view of the chest shows an enlarged but stable cardiomediastinal silhouette. Increa sed interstitial markings are present. The pacemaker is unchanged in position. There is no evidence of consolidation, mass, or pleural effusion. Surgical clips are seen in the upper abdomen. IMPRESSION: No evidence of acute cardiopulmonary disease
[2018-12-29 18:32] LABS: Hemoglobin 10.6 g/dL (14.0-18.0); Mean Corpuscular HGB CONC 33.3 g/dL (32.0-36.0); Mean Corpuscular Hemoglobin 31.5 pg (27.0-31.0); Mean Corpuscular Volume 94.6 fL (78.0-98.0); Mean Platelet Volume 9.3 fL (7.4-10.4); Platelet Count 273 thou/uL (130-400); RBC Distribution Width 15.5 % (11.5-14.5); Red Blood Cell (RBC) Count 3.38 mill/uL (4.70-6.10); White Blood Cell (WBC) Count 8.2 thou/uL (4.8-10.8)
[2018-12-29 18:53] LABS: ALT (SGPT) 11 U/L (8-55); AST (SGOT) 15 U/L (5-34); Albumin 3.6 g/dL (3.4-4.8); Alkaline Phosphatase 104 U/L (40-150); Anion Gap 12 mmol/L (10-20); BUN (Urea Nitrogen) 16 mg/dL (8.4-25.7); Bilirubin, Total 0.5 mg/dL (0.2-1.2); CK (CPK) 65 U/L (30-200); Calc. Creatinine Clearance 0 mL/min (70-130); Calcium 8.3 mg/dL (7.8-10.44); Carbon Dioxide 22 mmol/L (23-31); Chloride 105 mmol/L (98-107); Estimated GFR-MDRD 74; Glucose 105 mg/dL (80-115); Lipase 12 U/L (8-78); Potassium 4.4 mmol/L (3.5-5.1); Protein, Total 6.6 g/dL (5.8-8.1); Sodium 135 mmol/L (136-145)
[2018-12-29 18:56] LABS: Anisocytosis SLIGHT = 6-15 cells (100X) (0-5/hpf); Band 1 % (5-11); Hypochromia SLIGHT = 6-15 cells (100X) (0-5/hpf); Lymphocytes 15 % (21-51); MDiff Complete? YES; Metamyelocyte 1 % (0-0); Monocytes 4 % (0-10); Myelocyte 1 % (0-0); Neutrophil 78 % (42-75); Platelet Morphology Comment Appears Adequate; Poikilocytosis SLIGHT = 6-15 cells (100X) (0-5/hpf)
[2018-12-29 19:32] LABS: Digoxin 0.66 ng/mL (0.8-2.0)
[2018-12-29] MEDS ORDERED: Furosemide 40 MG/4 ML VIAL ONE (19:49)
[2018-12-29 21:32] LABS: Troponin I Less than 0.010 ng/mL (< 0.028)
[2018-12-29] MEDS ORDERED: Aspirin 325 MG TAB PO SCH (22:00)
[2018-12-29] MEDS ORDERED: Carvedilol 3.125 MG TAB PO SCH (22:45)
[2018-12-29] MEDS ORDERED: Apixaban 5 MG TAB PO SCH (22:45)
[2018-12-30] MEDS ORDERED: Ondansetron PF 4 MG/2 ML Vial IVP PRN (00:36)
[2018-12-30] MEDS ORDERED: Ondansetron ODT 4 MG TAB PO PRN (00:36)
[2018-12-30 00:57] LABS: Troponin I 0.014 ng/mL (< 0.028)
[2018-12-30 05:09] LABS: Anion Gap 13 mmol/L (10-20); BUN (Urea Nitrogen) 15 mg/dL (8.4-25.7); Calc. Creatinine Clearance 63 mL/min (70-130); Calcium 8.3 mg/dL (7.8-10.44); Carbon Dioxide 23 mmol/L (23-31); Chloride 103 mmol/L (98-107); Estimated GFR-MDRD 90; Glucose 89 mg/dL (80-115); Potassium 4.4 mmol/L (3.5-5.1); Sodium 135 mmol/L (136-145)
--- NOTE | 2018-12-30 05:23 | HP ---
PRIMARY CARE PHYSICIAN: Dr. Joao Power. CHIEF COMPLAINT: Chest pain and shortness of breath. HISTORY OF PRESENT ILLNESS: Mr. Patel is a pleasant 68-year-old male with a past medical history of hypertension, coronary artery disease, hypothyroidism, atrial fibrillation status post cardiac ablation, and chronic systolic heart failure, who had presented to [facility] earlier today due to chest pain and shortness of breath that had started earlier this morning. He states symptoms have been worse when he gets up and ambulates. He had denied any fever, chills, any headache, blurred vision, dizziness, any palpitations, abdominal pain, nausea, or vomiting. In the emergency department, he underwent a portable chest x-ray, which showed no evidence of acute cardiopulmonary disease. Serial troponins were ordered and found to be negative x2. However, his BNP was elevated more than his baseline at 1535.7. His last echocardiogram was on 12/18/2017, which displayed an ejection fraction of 10% to 15% with diastolic dysfunction. At that time, it was felt that the patient was suffering acute flare of his CHF. Therefore, he was treated with IV Lasix 40 mg and oral aspirin 325 mg. The patient states that his symptoms did in fact improve after the dose of IV Lasix. Cardiology Services was then consulted for the morning and he was placed on his home medications. REVIEW OF SYSTEMS: All other systems reviewed and found to be negative unless mentioned in the HPI. PAST MEDICAL HISTORY: Atrial fibrillation, myocardial infarction, CAD, hypothyroidism, hypertension, chronic systolic heart failure. PAST SURGICAL HISTORY: Aortic replacement/repair, cardiac ablation, AICD placement, and left femoral stent. SOCIAL HISTORY: The patient states that he drinks socially roughly once a month, however, denies any tobacco or illicit drug use. KNOWN ALLERGIES: No known drug allergies. CURRENT HOME MEDICATIONS: 1. Aspirin 81 mg daily. 2. Apixaban 5 mg p.o. b.i.d. 3. Indomethacin 50 mg p.o. b.i.d. 4. Furosemide 20 mg p.o. daily. 5. Carvedilol 3.125 mg p.o. b.i.d. 6. Digoxin 0.125 mg p.o. q.a.m. 7. Levothyroxine 150 mcg p.o. daily. 8. Lisinopril 2.5 mg oral daily. PHYSICAL EXAMINATION: VITAL SIGNS: Blood pressure 133/69, pulse 68, respirations 16, temperature 97.6 degrees Fahrenheit, and O2 saturations 99% on room air. GENERAL: The patient is awake, alert, and oriented x3. He is currently lying comfortably in bed, in no acute distress at this time. HEENT: Atraumatic and normocephalic. Pupils are round and reactive to light. Extraocular muscles are intact. Moist mucous membranes noted. NECK: Soft and supple. Trachea midline. CARDIOVASCULAR: Positive S1 and S2. Regular rate and rhythm. No edema noted. RESPIRATORY: Clear to auscultation bilaterally. No wheezes, rales, or rhonchi. ABDOMEN: Soft, nontender. Bowel sounds are present. MUSCULOSKELETAL: Strength 5+ bilaterally in upper and lower extremities. Moves all extremities equal. Pedal and radial pulses palpable 2+ bilaterally. No edema noted. NEUROLOGIC: Cranial nerves 2 through 12 grossly intact. No focal deficits noted. Speech intact and normal. Gait not assessed. SKIN: Warm, dry, and intact. No rashes. No ulcerations noted. PSYCHIATRIC: Good mood and affect. LABORATORY DATA: WBC 8.2, RBC 3.38, hemoglobin 10.6, platelet 273. Sodium 135, potassium 4.4, anion gap 12, BUN 16, creatinine 1.01, estimated GFR 74, glucose 105. AST 15, ALT 11. Troponin less than 0.010 x2. BNP 1535.7. Lipase 12. DIAGNOSTIC IMAGING STUDIES: Portable chest x-ray showed no evidence of acute cardiopulmonary disease. ASSESSMENT AND PLAN: 1. Likely acute on chronic systolic heart failure and diastolic heart failure, the patient will be resumed on his home regimen. At this time, he will be placed on IV furosemide 40 mg b.i.d., and Cardiology Services, Dr. Benavides will be consulted for further evaluation. His last echocardiogram displayed with an ejection fraction of 10% to 15% with diastolic dysfunction. His serial troponins are negative x2. 2. Hypertension. Restart home medications. 3. History of atrial fibrillation, status post ablation. The patient will be resumed on his home Eliquis along with his other home medications. He has AICD in place and this will be further interrogated in the a.m. 4. Hypothyroidism. Continue home levothyroxine and check TSH. 5. Deep venous thrombosis and gastrointestinal prophylaxis. CODE STATUS: Full code. DISPOSITION: Pending further workup and clinical findings. Job ID: [id number]
[2018-12-30 05:25] LABS: Band 3 % (5-11); Eosinophils 3 % (0-10); Hemoglobin 11.2 g/dL (14.0-18.0); Lymphocytes 25 % (21-51); MDiff Complete? YES; Mean Corpuscular HGB CONC 32.6 g/dL (32.0-36.0); Mean Corpuscular Hemoglobin 31.2 pg (27.0-31.0); Mean Corpuscular Volume 95.6 fL (78.0-98.0); Mean Platelet Volume 9.5 fL (7.4-10.4); Monocytes 7 % (0-10); Neutrophil 62 % (42-75); Platelet Count 278 thou/uL (130-400); RBC Distribution Width 15.9 % (11.5-14.5); Red Blood Cell (RBC) Count 3.59 mill/uL (4.70-6.10)
[2018-12-30 05:31] LABS: Elliptocytes SLIGHT = 2-5 cells (100X) (0-1/hpf)
[2018-12-30] MEDS: Levothyroxine 150 MCG TAB PO SCH (06:03)
[2018-12-30] MEDS: Furosemide 40 MG/4 ML VIAL SLOW IVP SCH ×2 (06:04→13:26)
[2018-12-30] MEDS ORDERED: Aspirin Chewable 81 MG TAB PO SCH (09:00)
[2018-12-30] MEDS: Lisinopril 2.5 MG TAB PO SCH (09:36)
[2018-12-30] MEDS: Digoxin 0.125 MG TAB PO SCH (09:36)
[2018-12-30] MEDS: Carvedilol 3.125 MG TAB PO SCH ×2 (09:36→17:14)
[2018-12-30] MEDS: Apixaban 5 MG TAB PO SCH ×2 (09:36→20:52)
--- NOTE | 2018-12-30 14:32 | PDOC.PN ---
- Subjective Encounter Start Date: 12/30/18 Encounter Start Time: 14:30 Subjective: Patient states still slightly sob with exertion, able to walk the halls -: Denies any chest pain. No dizziness. No cough or hemoptysis. -: Feels well overall otherwise. Seen by Dr. Batres early this am and advised a Pharm Stress Test. Patient did eat at noon therefore having resting portion today. He otherwise feels well and without complaints. - Objective Resuscitation Status - Order Detail: 12/30/18 00:36 Resuscitation Status Routine Co-Sign Provider: Resuscitation Status: FULL: Full Resuscitation Vital Signs & Weight: Vital Signs (12 hours) Temp Pulse Resp BP BP Pulse Ox 12/30/18 11:44 97.4 F L 68 15 107/64 100 12/30/18 09:36 77 109/67 12/30/18 07:56 97.8 F 77 16 109/67 98 12/30/18 04:00 98.4 F 71 16 141/85 H 95 Weight Admit Weight 116 lb 14.4 oz Weight 116 lb 14.4 oz I&O: 12/29/18 12/30/18 12/31/18 06:59 06:59 06:59 Intake Total 354 240 Output Total 700 600 Balance -346 -360 Result Diagrams: 12/30/18 04:25 12/30/18 04:25 Phys Exam - Physical Examination Constitutional: NAD Well developed, very thin HEENT: PERRLA, sclera anicteric Neck: no nodes, supple, full ROM Respiratory: no wheezing crackles at left lung base Cardiovascular: RRR Gastrointestinal: soft, non-tender, no distention, positive bowel sounds Musculoskeletal: no edema, pulses present Neurological: non-focal, normal sensation, moves all 4 limbs Lymphatic: no nodes Psychiatric: normal affect, A&O x 3 Skin: no rash, normal turgor Dx/Plan (1) Acute on chronic systolic ACC/AHA stage C congestive heart failure Code(s): I50.23 - ACUTE ON CHRONIC SYSTOLIC (CONGESTIVE) HEART FAILURE Status : Acute (2) Chest pain Code(s): R07.9 - CHEST PAIN, UNSPECIFIED Status: Acute (3) CAD (coronary artery disease) Code(s): I25.10 - ATHSCL HEART DISEASE OF [place] CORONARY ARTERY W/O ANG PCTRS Status: Chronic (4) Chronic anticoagulation Code(s): Z79.01 - GROUP WORK PROGRAM DIRECTOR (CURRENT) USE OF ANTICOAGULANTS Status: Chronic (5) Dyslipidemia Code(s): E78.5 - HYPERLIPIDEMIA, UNSPECIFIED Status: Chronic (6) Hypertension Code(s): I10 - ESSENTIAL (PRIMARY) HYPERTENSION Status: Chronic (7) Hypothyroidism Code(s): E03.9 - HYPOTHYROIDISM, UNSPECIFIED Status: Chronic - Plan cont current plan of care Seen by Dr. Batres this morning who requested a Pharm Stress test. -: Since patient ate, he will have resting phase today and active tmrw. -: Continue lasix. CXR showed no acute changes. -: TSH with AM labs tomorrow, as not checked with todays labs. * .
[2018-12-31 05:32] LABS: Anion Gap 15 mmol/L (10-20); BUN (Urea Nitrogen) 32 mg/dL (8.4-25.7); Calc. Creatinine Clearance 45 mL/min (70-130); Calcium 8.4 mg/dL (7.8-10.44); Carbon Dioxide 23 mmol/L (23-31); Chloride 99 mmol/L (98-107); Estimated GFR-MDRD 60; Glucose 98 mg/dL (80-115); Potassium 4.8 mmol/L (3.5-5.1); Sodium 132 mmol/L (136-145)
[2018-12-31 05:58] LABS: Band 2 % (5-11); Eosinophils 6 % (0-10); Hemoglobin 12.4 g/dL (14.0-18.0); Lymphocytes 27 % (21-51); MDiff Complete? YES; Mean Corpuscular HGB CONC 32.6 g/dL (32.0-36.0); Mean Corpuscular Hemoglobin 31.2 pg (27.0-31.0); Mean Corpuscular Volume 95.8 fL (78.0-98.0); Mean Platelet Volume 9.1 fL (7.4-10.4); Monocytes 18 % (0-10); Neutrophil 47 % (42-75); Platelet Count 299 thou/uL (130-400); RBC Distribution Width 15.7 % (11.5-14.5); Red Blood Cell (RBC) Count 3.96 mill/uL (4.70-6.10)
[2018-12-31] MEDS: Levothyroxine 150 MCG TAB PO SCH (06:12)
[2018-12-31] MEDS: Furosemide 40 MG/4 ML VIAL SLOW IVP SCH ×2 (06:14→13:17)
[2018-12-31] MEDS: Apixaban 5 MG TAB PO SCH ×2 (08:43→20:20)
[2018-12-31] MEDS: Lisinopril 2.5 MG TAB PO SCH (08:43)
[2018-12-31] MEDS: Carvedilol 3.125 MG TAB PO SCH ×2 (11:11→17:45)
[2018-12-31] MEDS: Digoxin 0.125 MG TAB PO SCH (12:04)
[2018-12-31] MEDS ORDERED: Sodium Chloride 0.9% 500 ML IV SCH (15:45)
--- NOTE | 2018-12-31 16:27 | PDOC.PN ---
- Subjective Encounter Start Date: 12/31/18 Encounter Start Time: 16:26 Subjective: Patient states he is feeling well and without any complaints. Unable to -: have second part of stress test this morning due to low BP, 74-80 systolic -: Rescheduled to tomorrow morning by Dr. Batres. Patient denies being dizzy or lightheaded. Denies any chest pain. No sob. Feels well in himself and without any complaints. - Objective Resuscitation Status - Order Detail: 12/30/18 00:36 Resuscitation Status Routine Co-Sign Provider: Resuscitation Status: FULL: Full Resuscitation Vital Signs & Weight: Vital Signs (12 hours) Temp Pulse Resp BP BP Pulse Ox 12/31/18 15:20 97.6 F 82 16 110/59 L 99 12/31/18 12:04 75 12/31/18 11:35 97.5 F L 75 16 109/76 95 12/31/18 08:43 75 12/31/18 07:29 97.7 F 75 16 103/62 98 12/31/18 06:14 97/64 12/31/18 04:59 104/63 12/31/18 04:28 98.1 F 74 18 85/58 L 98 Weight Admit Weight 116 lb 14.4 oz Weight 118 lb 6.4 oz I&O: 12/30/18 12/31/18 01/01/19 06:59 06:59 06:59 Intake Total 354 2074 240 Output Total 700 1800 Balance -346 274 240 Result Diagrams: 12/31/18 05:00 12/31/18 05:00 Phys Exam - Physical Examination Constitutional: NAD Very thin HEENT: PERRLA, moist MMs, sclera anicteric Neck: no nodes, no JVD, supple, full ROM Respiratory: no wheezing, no rales, no rhonchi, clear to auscultation bilateral Cardiovascular: RRR Gastrointestinal: soft, non-tender, no distention, positive bowel sounds Musculoskeletal: no edema, pulses present Neurological: non-focal, normal sensation, moves all 4 limbs Psychiatric: normal affect, A&O x 3 Skin: no rash Dx/Plan (1) Acute on chronic systolic ACC/AHA stage C congestive heart failure Code(s): I50.23 - ACUTE ON CHRONIC SYSTOLIC (CONGESTIVE) HEART FAILURE Status : Acute (2) Chest pain Code(s): R07.9 - CHEST PAIN, UNSPECIFIED Status: Resolved (3) CAD (coronary artery disease) Code(s): I25.10 - ATHSCL HEART DISEASE OF [place] CORONARY ARTERY W/O ANG PCTRS Status: Chronic (4) Chronic anticoagulation Code(s): Z79.01 - DYE CAN OPERATOR (CURRENT) USE OF ANTICOAGULANTS Status: Chronic (5) Dyslipidemia Code(s): E78.5 - HYPERLIPIDEMIA, UNSPECIFIED Status: Chronic (6) Hypertension Code(s): I10 - ESSENTIAL (PRIMARY) HYPERTENSION Status: Chronic (7) Hypothyroidism Code(s): E03.9 - HYPOTHYROIDISM, UNSPECIFIED Status: Chronic - Plan cont current plan of care Will undergo active part of stress test tomorrow morning. -: Lasix discontinued. Monitor BP. -: Gentle IV fluids. -: Per Dr. Batres repeat Echo not indicated. * .
[2018-12-31] MEDS: Sodium Chloride 0.9% 500 ML IV SCH (17:39)
[2019-01-01] MEDS: Sodium Chloride 0.9% 500 ML IV SCH ×2 (04:10→17:53)
[2019-01-01] MEDS: Levothyroxine 150 MCG TAB PO SCH (05:33)
[2019-01-01 05:40] LABS: Anion Gap 11 mmol/L (10-20); BUN (Urea Nitrogen) 36 mg/dL (8.4-25.7); Calc. Creatinine Clearance 54 mL/min (70-130); Calcium 8.5 mg/dL (7.8-10.44); Carbon Dioxide 24 mmol/L (23-31); Chloride 104 mmol/L (98-107); Estimated GFR-MDRD 78; Glucose 95 mg/dL (80-115); Potassium 4.5 mmol/L (3.5-5.1); Sodium 134 mmol/L (136-145)
[2019-01-01 06:06] LABS: Band 3 % (5-11); Eosinophils 3 % (0-10); Hemoglobin 11.5 g/dL (14.0-18.0); Lymphocytes 27 % (21-51); MDiff Complete? YES; Mean Corpuscular HGB CONC 32.9 g/dL (32.0-36.0); Mean Corpuscular Hemoglobin 31.4 pg (27.0-31.0); Mean Corpuscular Volume 95.3 fL (78.0-98.0); Mean Platelet Volume 9.3 fL (7.4-10.4); Monocytes 7 % (0-10); Neutrophil 60 % (42-75); Platelet Count 292 thou/uL (130-400); RBC Distribution Width 15.5 % (11.5-14.5); Red Blood Cell (RBC) Count 3.67 mill/uL (4.70-6.10); White Blood Cell (WBC) Count 8.8 thou/uL (4.8-10.8)
[2019-01-01 13:55] VITALS: BMI 15.3
[2019-01-01] MEDS: Carvedilol 3.125 MG TAB PO SCH (14:05)
[2019-01-01] MEDS: Apixaban 5 MG TAB PO SCH (14:05)
[2019-01-01] MEDS: Digoxin 0.125 MG TAB PO SCH (14:06)
[2019-01-01] MEDS: Lisinopril 2.5 MG TAB PO SCH (14:08)
--- NOTE | 2019-01-01 15:01 | NM ---
NUCLEAR MEDICINE CARDIAC MYOCARDIAL PERFUSION SPECT EJECTION FRACTION STUDY WALL MOTION CINE: DATE: 01/01/2019 HISTORY: 68-year-old male with coronary artery disease, myocardial infarction, congestive heart failure, aorti c valve replacement, atrial fibrillation, hypertension, status post ablation and AICD, presents with acute chest pain. TECHNIQUE: Number of days:2 Rest study: Technetium 99m-sestamibi (Cardiolite) dose:27.3 mCi Pharmacologic stress: Adenosine dose: 29.1 mg Stress study: Technetium 99m-sestamibi (Cardiolite) dose:27.0 mCi FINDINGS: Cardiac (myocardial perfusion) SPECT There is chamber dilation. Large fixed lateral and inferior wall defect consistent with scar/infarcti on. No reversible perfusion defect identified. Ejection fraction study Left ventricular EF = 15 % Wall motion cine Global hypokinesis. Lateral and inferior wall are either akinetic or have paradoxical motion. IMPRESSION: 1. Large scar/infarction at lateral wall and inferior wall. 2. Left ventricular chamber dilation with very low ejection fraction of 15%. 3. No evidence of reversible ischemia.
[2019-01-01 15:51] VITALS: BP 110/64; TEMP 97.2
--- NOTE | 2019-01-03 14:52 | EKG ---
Test Reason : CHEST PAIN Blood Pressure : / mmHG Vent. Rate : 080 BPM Atrial Rate : 080 BPM P-R Int : 206 ms QRS Dur : 120 ms QT Int : 380 ms P-R-T Axes : 021 -10 184 degrees QTc Int : 438 ms Sinus rhythm with occasional Premature ventricular complexes Inferior infarct , age undetermined Abnormal ECG Confirmed by CODY NEGRO, JANUARY ([id number]), news editor AN REAGAN ([id number]) on 01/03/2019 2:52:20 PM Referred By: CAMILA Confirmed By:JANUARY ROSS MD
== END 2019-01-01 18:15 | disposition home or self-care (01) ==
LOC: ERS 17:42 → 2SW 19:15
PROVIDERS: ADMIT Family Medicine; ATTEND Family Medicine
DX: I11.0 Hypertensive heart disease with heart failure (principal); I50.23 Acute on chronic systolic (congestive) heart failure; I25.10 Atherosclerotic heart disease of native coronary artery without angina pectoris; E03.9 Hypothyroidism, unspecified; E78.5 Hyperlipidemia, unspecified; I48.91 Unspecified atrial fibrillation; I25.2 Old myocardial infarction; Z95.810 Presence of automatic (implantable) cardiac defibrillator; Z79.82 Long term (current) use of aspirin; Z79.01 Long term (current) use of anticoagulants; Z79.899 Other long term (current) drug therapy
CPT/HCPCS: 71045; 78452; 80048 ×3; 80053; 80162; 82550; 83690; 83880; 84443; 84484 ×3; 85025 ×4; 93005; 93017; 93798; 94760; 96361 ×2; 96374; 96376; 97139 ×2; 99285; A9500; G0378 ×3; 36415; J1940

== ENCOUNTER 2019-07-19 14:53 | Inpatient (IN) | payer MEDICARE ==
[2019-07-19 15:19] LABS: Hemoglobin 10.5 g/dL (14.0-18.0); Mean Corpuscular Hemoglobin 28.9 pg (27.0-31.0); Mean Corpuscular Volume 87.5 fL (78.0-98.0); Mean Platelet Volume 9.2 fL (7.4-10.4); Platelet Count 494 thou/uL (130-400); RBC Distribution Width 13.9 % (11.5-14.5); Red Blood Cell (RBC) Count 3.63 mill/uL (4.70-6.10)
--- NOTE | 2019-07-19 15:22 | RAD ---
EXAM: Single view of the chest HISTORY: Chest pain and fluid on lungs COMPARISON: 12/29/2018 FINDINGS: Single view of the chest shows an enlarged but stable cardiomediastinal silhouette. The pa cemaker is unchanged in position. Increased interstitial lung markings are present. There are questionable superimposed airspace opacities projecting over the left lung. The bones are unremarkabl e. IMPRESSION: Questionable left-sided scattered infiltrates.
[2019-07-19 15:40] LABS: ALT (SGPT) 15 U/L (8-55); AST (SGOT) 20 U/L (5-34); Albumin 3.5 g/dL (3.4-4.8); Alkaline Phosphatase 112 U/L (40-110); Anion Gap 14 mmol/L (10-20); BUN (Urea Nitrogen) 15 mg/dL (8.4-25.7); Bilirubin, Total 0.4 mg/dL (0.2-1.2); CK (CPK) 63 U/L (30-200); Calc. Creatinine Clearance 0 mL/min (70-130); Calcium 8.5 mg/dL (7.8-10.44); Carbon Dioxide 25 mmol/L (23-31); Chloride 104 mmol/L (98-107); Estimated GFR-MDRD 81; Glucose 99 mg/dL (80-115); Lipase 9 U/L (8-78); Potassium 4.2 mmol/L (3.5-5.1); Protein, Total 7.5 g/dL (5.8-8.1); Sodium 139 mmol/L (136-145)
[2019-07-19 15:41] LABS: Band 9 % (5-11); Burr Cells SLIGHT = 2-5 cells (100X) (0-1/hpf); Eosinophils 4 % (0-10); Lymphocytes 11 % (21-51); MDiff Complete? YES; Monocytes 6 % (0-10); Neutrophil 64 % (42-75); Ovalocytes SLIGHT = 2-5 cells (100X) (0-1/hpf); Platelet Morphology Comment Appears Increased; Polychromasia SLIGHT = 2-3 cells (100X) (0-2/hpf)
[2019-07-19 15:54] LABS: Free T4 (Free Thyroxine) 1.07 ng/dL (0.70-1.48); Thyroid Stimulating Hormone 17.5651 uIU/mL (0.35-4.94)
[2019-07-19 16:02] LABS: CKMB 1.8 ng/mL (0-6.6)
[2019-07-19] MEDS ORDERED: Furosemide 40 MG/4 ML VIAL ONE (16:50)
[2019-07-19] MEDS ORDERED: Acetaminophen 325 MG TAB PO PRN (16:56)
--- NOTE | 2019-07-19 17:52 | HP ---
CHIEF COMPLAINT: Short of breath. HISTORY OF PRESENT ILLNESS: This is a 69-year-old male with history of systolic heart failure and an EF in the past estimated around 15%, hypertension, peripheral vascular disease, atrial fibrillation, and arthritis, who presents to the emergency room complaining of shortness of breath. The patient reports the onset was two days ago and states it is progressively getting worse. He has chest pain and difficulty breathing with lying flat, shortness of breath with movement approximately 50 feet, where normal for him is walking for 6 minutes. He reports starting cardiac rehab in March and finishing it last week. He denies any changes to his medication, denies any missed medication and states that his weight is chronically low. He has noted some swelling in his right leg as well as his right wrist. The patient denies any nausea, vomiting, fevers, chills, abdominal pain, or change in urine. He does report early satiety. He also reports a mechanical fall back in April. In the emergency room, the patient was found to have acute on chronic systolic heart failure, concern for pneumonia and he is receiving 40 mg IV Lasix and 750 mg of levofloxacin and hospitalist called for admission. ALLERGIES: NO KNOWN DRUG ALLERGIES. CURRENT MEDICATIONS: Reconciled with the patient. 1. Vitamin B12, unknown dose. 2. Iron, unknown dose. 3. Tylenol regular strength two tablets approximately once a day. 4. Carvedilol 3.125 mg b.i.d. 5. Digoxin 125 mcg daily. 6. Lisinopril 2.5 mg daily. 7. Furosemide 20 mg daily. 8. Levothyroxine 150 mcg daily. 9. Eliquis 5 mg b.i.d. 10. Aspirin 81 mg daily. 11. Indomethacin 50 mg, which he last took yesterday and he normally takes as needed. PAST MEDICAL HISTORY: 1. Atrial fibrillation. 2. Systolic heart failure with last hospitalization in December of 2018 and an EF estimated at 15%, followed by Dr. Batres. 3. History of coronary artery disease and [place]. 4. Hypothyroidism. 5. Hypertension. 6. Arthritis. PAST SURGICAL HISTORY: 1. Aorta repair x2. 2. AICD. 3. Left femoral stent. SOCIAL HISTORY: The patient lives with his , who is his surrogate decision maker. He is a full code. He reports alcohol monthly. Denies any tobacco use. REVIEW OF SYSTEMS: Positive for early satiety, right leg swelling, right wrist swelling, and weakness. All remaining review of systems are reviewed and negative. PHYSICAL EXAMINATION: VITAL SIGNS: His blood pressure 138/79, pulse 76, respirations 20, temperature 97.2, and sats 96% on room air. GENERAL: Awake, alert, responsive, cachectic male in no apparent distress, speaking in full sentences without difficulty. HEENT: His pupils are equal and round. No scleral icterus. Oral mucosa is pink and moist. NECK: Supple, nontender. LYMPHATICS: No palpable cervical or supraclavicular lymphadenopathy. LUNGS: Bibasilar rales, left greater than right. No audible wheezing or rhonchi. HEART: Normal S1 and S2. No significant murmur. ABDOMEN: Soft, present bowel sounds. Nontender, nondistended. EXTREMITIES: Trace nonpitting edema in his right lower extremity. No clubbing or cyanosis. SKIN: No visible rashes. NEUROLOGIC: No focal deficits. PSYCH: Appears euthymic. VASCULAR: 2+ radial pulses. LABORATORY DATA: Reviewed. CBC; 10.0, 10.5, 31.8, 494. Hemoglobin reviewed in the past, and it is over the past year and a half ranging from 10.6 to 12.4. Renal panel; 139, 4.2, 104, 25, 15, 0.93, 99. Magnesium 1.7. AST 20, ALT 15, alkaline phosphatase 112, total protein 7.5, and albumin 3.5. Troponin 0.036. BNP 1194. TSH 17.5 with a free T4 of 1.07 (normal). Chest x-ray is personally reviewed, which shows questionable left-sided scattered infiltrates with increasing interstitial lung markings. EKG shows a sinus rhythm with Q waves in the inferior leads, PVCs, inverted T waves, V5, V6, I, and aVL. IMPRESSION: 1. Acute on chronic systolic heart failure with low ejection fraction estimated at 15% back in December 2018. 2. Possible pneumonia. 3. Hypothyroidism with elevated TSH, normal free T4. 4. Hypertension, well controlled. 5. Paroxysmal atrial fibrillation, on full anticoagulation. 6. Right wrist pain. 7. Subtle right lower extremity and right wrist edema of uncertain etiology. 8. Cachexia. 9. Anemia, chronic and stable. PLAN: 1. Admission to the hospital. 2. Continuing IV Lasix, we will start tomorrow with 20 mg IV twice a day and monitor for symptomatic improvement. 3. Cardiology consultation. 4. Continuing his beta maricruz, digoxin, VIMAL inhibitor, low-dose aspirin, and full anticoagulation. 5. We will continue the levofloxacin changing over to oral, and monitor. Consider repeat chest x-ray prior to discharge to evaluate for interval change and further need for antibiotics. 6. Treat pain with acetaminophen, avoiding indomethacin due to the acute decompensated heart failure. 7. A dietitian consult as the patient is cachectic. 8. Continuing the levothyroxine at current dose, this should be re-evaluated in the outpatient setting to determine if the amount needs to be adjusted. Given the normal free T4, we will hold on adjusting this here. Follow up for evaluation and management of anemia as well. 9. DVT prophylaxis. He is fully anticoagulated. 10. GI prophylaxis, not indicated. 11. Code status is full. Surrogate decision maker is the patient's . 12. Reviewed the plan of care with the patient and his . No questions or further needs at the end of evaluation. 13. The patient is at high risk given age, comorbidities, and current presentation. Job ID: [id number] MTDD
[2019-07-19 19:52] LABS: Troponin I 0.028 ng/mL (< 0.028)
[2019-07-19 20:49] VITALS: BMI 16.7
[2019-07-19] MEDS: Apixaban 5 MG TAB PO SCH (21:59)
[2019-07-19] MEDS: Carvedilol 3.125 MG TAB PO SCH (21:59)
[2019-07-19 22:01] LABS: Troponin I 0.045 ng/mL (< 0.028)
[2019-07-20 05:12] LABS: Anion Gap 12 mmol/L (10-20); BUN (Urea Nitrogen) 19 mg/dL (8.4-25.7); Calc. Creatinine Clearance 56 mL/min (70-130); Carbon Dioxide 27 mmol/L (23-31); Chloride 104 mmol/L (98-107); Estimated GFR-MDRD 74; Glucose 102 mg/dL (80-115); Potassium 3.6 mmol/L (3.5-5.1); Sodium 139 mmol/L (136-145)
[2019-07-20 05:42] LABS: Band 1 % (5-11); Eosinophils 2 % (0-10); Hemoglobin 9.3 g/dL (14.0-18.0); Lymphocytes 16 % (21-51); MDiff Complete? YES; Mean Corpuscular HGB CONC 33.8 g/dL (32.0-36.0); Mean Corpuscular Hemoglobin 29.5 pg (27.0-31.0); Mean Corpuscular Volume 87.3 fL (78.0-98.0); Mean Platelet Volume 9.2 fL (7.4-10.4); Monocytes 6 % (0-10); Neutrophil 75 % (42-75); Ovalocytes SLIGHT = 2-5 cells (100X) (0-1/hpf); Platelet Count 444 thou/uL (130-400); Platelet Morphology Comment Appears Increased; RBC Distribution Width 13.8 % (11.5-14.5); Red Blood Cell (RBC) Count 3.15 mill/uL (4.70-6.10); Target Cells SLIGHT = 2-5 cells (100X) (0-1/hpf); White Blood Cell (WBC) Count 8.2 thou/uL (4.8-10.8)
[2019-07-20] MEDS: Furosemide 20 MG/2 ML VIAL SLOW IVP SCH ×2 (05:42→14:09)
[2019-07-20] MEDS: Levothyroxine 150 MCG TAB PO SCH (05:42)
[2019-07-20] MEDS ORDERED: Lisinopril 2.5 MG TAB PO SCH (09:00)
[2019-07-20] MEDS: Carvedilol 3.125 MG TAB PO SCH ×2 (09:34→21:11)
[2019-07-20] MEDS: Aspirin Chewable 81 MG TAB PO SCH (09:34)
[2019-07-20] MEDS: Digoxin 0.125 MG TAB PO SCH (09:34)
[2019-07-20] MEDS: Apixaban 5 MG TAB PO SCH ×2 (09:35→21:11)
--- NOTE | 2019-07-20 09:53 | PDOC.HOSPP ---
- Subjective Encounter Date: 07/20/19 Encounter Time: 15:00 Subjective: Patient breathing much better. Almost no coughing this AM. Urinating well. No fever. - Objective Vital Signs & Weight: Vital Signs (12 hours) Temp Pulse Resp BP Pulse Ox 07/20/19 09:35 74 07/20/19 09:34 75 07/20/19 08:20 97.4 F L 74 18 100/64 97 07/20/19 04:00 98.3 F 77 20 105/65 97 07/20/19 00:00 98.4 F 82 18 116/72 98 Weight Weight 123 lb I&O: 07/19/19 07/20/19 07/21/19 06:59 06:59 06:59 Intake Total 120 Output Total 500 Balance -380 Result Diagrams: 07/20/19 03:57 07/20/19 03:57 Hospitalist ROS - Review of Systems Constitutional: denies: fever, chills Respiratory: reports: cough, shortness of breath Cardiovascular: denies: chest pain, palpitations, edema Gastrointestinal: denies: nausea, vomiting, abdominal pain - Medication Medications: Active Medications Generic Name Dose Route Start Last Admin Trade Name Freq PRN Reason Stop Dose Admin Apixaban 5 mg 07/19/19 21:00 07/20/19 09:35 Eliquis PO 5 mg BID DEJUAN Administration Aspirin 81 mg 07/20/19 09:00 07/20/19 09:34 Aspirin Chewable PO 81 mg DAILY DEJUAN Administration Carvedilol 3.125 mg 07/19/19 21:00 07/20/19 09:34 Coreg PO Not Given BID DEJUAN Digoxin 0.125 mg 07/20/19 09:00 07/20/19 09:34 Lanoxin PO 0.125 mg DAILY DEJUAN Administration Furosemide 20 mg 07/20/19 06:00 07/20/19 05:42 Lasix SLOW IVP 20 mg 0600,1400 DEJUAN Administration Levothyroxine Sodium 150 mcg 07/20/19 06:00 07/20/19 05:42 Synthroid PO 150 mcg 0600 DEJUAN Administration Lisinopril 2.5 mg 07/20/19 09:00 07/20/19 09:35 Zestril PO Not Given DAILY DEJUAN - Exam General Appearance: NAD Eye: anicteric sclera ENT: moist mucosa Heart: RRR, no murmur, no gallops, no rubs Respiratory: CTAB, no wheezes, no ronchi Respiratory - other findings: few rales in bases Gastrointestinal: soft, non-tender, non-distended, normal bowel sounds Extremities: no edema Psychiatric: normal affect, normal behavior, A&O x 3 Hosp A/P (1) Acute on chronic systolic ACC/AHA stage C congestive heart failure Code(s): I50.23 - ACUTE ON CHRONIC SYSTOLIC (CONGESTIVE) HEART FAILURE Status : Acute (2) Pneumonia Code(s): J18.9 - PNEUMONIA, UNSPECIFIED ORGANISM Status: Acute (3) CAD (coronary artery disease) Code(s): I25.10 - ATHSCL HEART DISEASE OF [place] CORONARY ARTERY W/O ANG PCTRS Status: Chronic (4) Chronic anticoagulation Code(s): Z79.01 - ART EDUCATION PROFESSOR (CURRENT) USE OF ANTICOAGULANTS Status: Chronic (5) Dyslipidemia Code(s): E78.5 - HYPERLIPIDEMIA, UNSPECIFIED Status: Chronic (6) Gout Code(s): M10.9 - GOUT, UNSPECIFIED Status: Chronic (7) Hypertension Code(s): I10 - ESSENTIAL (PRIMARY) HYPERTENSION Status: Chronic (8) Hypothyroidism Code(s): E03.9 - HYPOTHYROIDISM, UNSPECIFIED Status: Chronic (9) PAD (peripheral artery disease) Code(s): I73.9 - PERIPHERAL VASCULAR DISEASE, UNSPECIFIED Status: Chronic (10) Paroxysmal atrial fibrillation Code(s): I48.0 - PAROXYSMAL ATRIAL FIBRILLATION Status: Chronic - Plan continue antibiotics, out of bed/ambulate CT chest with possibility of infectious process, will give full course of Levaquin On lasix BID Cardiology consultation ECHO with severely depressed EF 15-20%
--- NOTE | 2019-07-20 10:34 | CT ---
CT CHEST WITHOUT CONTRAST CLINICAL INDICATION: Lung mass. Shortness of breath and pleural effusion. COMPARISON: CTA chest on 06/18/2017. FINDINGS: Heart and aorta: Vascular calcifications are seen. The thoracic aorta is normal in caliber. Aortic di ssection cannot be evaluated on this nonenhanced CT exam. Vascular calcifications are also seen involving the origins of the great vessels. The heart remains enlarged. A dual-lead left subclavian A ICD device is noted in place. Prominent coronary artery calcifications identified. Trace pericardial effusion versus pericardial thickening is seen. Lungs: Again noted are increased interstitial densities throughout the lungs bilaterally predominantl y at the periphery of the lungs. There is slightly greater degree of interstitial and groundglass densities at the left lung base and to a lesser extent left upper lobe which could be related to supe rimposed acute infectious process superimposed on chronic lung changes. Small left pleural effusion is identified. There is an irregular parenchymal density seen involving the inferior and posterior as pect right middle lobe also seen on prior study in 2017 which is also likely attributable to chronic lung changes. No definite discrete mass is visualized. Mediastinum: Limited evaluation of hilar or mediastinal lymphadenopathy secondary to lack of intraven ous contrast there is a mildly enlarged subcarinal lymph node measuring 1.4 cm in short axis dimension with a prominent prevascular space lymph node measuring 1.2 cm in short axis dimension. Thyroid gland: Not well evaluated on this exam. Osseous structures: No suspicious lytic or sclerotic osseous lesions are identified. Chest wall: No abnormality visualized. Upper abdomen: Atrophy of the visualized portion of the body of the pancreas with mesh calcifications in the splenic artery. IMPRESSION: 1. Persistent chronic interstitial fibrotic lung changes which were also seen on study in 2017 but do appear mildly progressed. There is now greater interstitial and groundglass densities in the left lower lobe and to a lesser extent in the left upper lobe which may be related to superimposed more ac [place] infectious process. Follow-up to resolution is recommended. No discrete measurable mass is appreciated within the lungs bilaterally. 2. Small left pleural effusion. 3. Cardiomegaly with prominent coronary artery calcifications. 4. Nonspecific mildly enlarged subcarinal and prevascular space lymph nodes. These lymph nodes may be reactive in origin.
[2019-07-21] MEDS: Furosemide 20 MG/2 ML VIAL SLOW IVP SCH ×2 (05:54→14:00)
[2019-07-21] MEDS: Levothyroxine 150 MCG TAB PO SCH (05:54)
[2019-07-21] MEDS: Apixaban 5 MG TAB PO SCH (08:17)
[2019-07-21] MEDS: Digoxin 0.125 MG TAB PO SCH (08:17)
[2019-07-21] MEDS: Carvedilol 3.125 MG TAB PO SCH (08:17)
[2019-07-21] MEDS: Aspirin Chewable 81 MG TAB PO SCH (08:17)
--- NOTE | 2019-07-21 08:33 | PDOC.HOSPP ---
- Subjective Encounter Date: 07/21/19 Encounter Time: 12:20 Subjective: Patient feeling much better. Up ambulating the halls without oxygen this morning and eager to go home. Spoke with Dr. Dutta and he said patient can go home and f/u with Dr. Batres. - Objective Vital Signs & Weight: Vital Signs (12 hours) Temp Pulse Resp BP Pulse Ox 07/21/19 08:12 98.1 F 73 16 104/69 97 07/21/19 04:00 97.9 F 68 20 90/54 L 98 07/21/19 00:00 79 115/69 Weight Admit Weight 123 lb 11.2 oz Weight 114 lb 14.4 oz I&O: 07/20/19 07/21/19 07/22/19 06:59 06:59 06:59 Intake Total 120 960 Output Total 500 2220 Balance -380 -1260 Result Diagrams: 07/20/19 03:57 07/20/19 03:57 Hospitalist ROS - Review of Systems Constitutional: denies: fever, chills Respiratory: denies: cough, shortness of breath Cardiovascular: denies: chest pain, palpitations, orthopnea, paroxysmal noc. dyspnea Gastrointestinal: denies: nausea, vomiting, abdominal pain, diarrhea - Medication Medications: Active Medications Generic Name Dose Route Start Last Admin Trade Name Freq PRN Reason Stop Dose Admin Acetaminophen 650 mg 07/19/19 16:56 07/21/19 08:22 Tylenol PO 650 mg Q6H PRN Administration Headache/Fever/Mild Pain (1-3) Apixaban 5 mg 07/19/19 21:00 07/21/19 08:17 Eliquis PO 5 mg BID DEJUAN Administration Aspirin 81 mg 07/20/19 09:00 07/21/19 08:17 Aspirin Chewable PO 81 mg DAILY DEJUAN Administration Carvedilol 3.125 mg 07/19/19 21:00 07/21/19 08:17 Coreg PO 3.125 mg BID DEJUAN Administration Digoxin 0.125 mg 07/20/19 09:00 07/21/19 08:17 Lanoxin PO 0.125 mg DAILY DEJUAN Administration Furosemide 20 mg 07/20/19 06:00 07/21/19 05:54 Lasix SLOW IVP 20 mg 0600,1400 DEJUAN Administration Levofloxacin 750 mg 07/20/19 21:00 07/20/19 21:11 Levaquin PO 750 mg HS DEJUAN Administration Levothyroxine Sodium 150 mcg 07/20/19 06:00 07/21/19 05:54 Synthroid PO 150 mcg 0600 DEJUAN Administration Sacubitril/Valsartan 1 tab 07/21/19 09:00 07/21/19 08:17 Entresto 24 Mg-26 Mg Tablet PO 1 tab BID DEJUAN Administration - Exam General Appearance: NAD Eye: anicteric sclera ENT: moist mucosa Heart: RRR, no murmur, no gallops, no rubs Respiratory: CTAB, no wheezes, no rales, no ronchi Gastrointestinal: soft, non-tender, non-distended, normal bowel sounds Extremities: no edema Psychiatric: normal affect, normal behavior, A&O x 3 Hosp A/P (1) Acute on chronic systolic ACC/AHA stage C congestive heart failure Code(s): I50.23 - ACUTE ON CHRONIC SYSTOLIC (CONGESTIVE) HEART FAILURE Status : Acute (2) Pneumonia Code(s): J18.9 - PNEUMONIA, UNSPECIFIED ORGANISM Status: Acute (3) CAD (coronary artery disease) Code(s): I25.10 - ATHSCL HEART DISEASE OF [place] CORONARY ARTERY W/O ANG PCTRS Status: Chronic (4) Chronic anticoagulation Code(s): Z79.01 - MEDICAL STAFF CREDENTIALING COORDINATOR (CURRENT) USE OF ANTICOAGULANTS Status: Chronic (5) Dyslipidemia Code(s): E78.5 - HYPERLIPIDEMIA, UNSPECIFIED Status: Chronic (6) Gout Code(s): M10.9 - GOUT, UNSPECIFIED Status: Chronic (7) Hypertension Code(s): I10 - ESSENTIAL (PRIMARY) HYPERTENSION Status: Chronic (8) Hypothyroidism Code(s): E03.9 - HYPOTHYROIDISM, UNSPECIFIED Status: Chronic (9) PAD (peripheral artery disease) Code(s): I73.9 - PERIPHERAL VASCULAR DISEASE, UNSPECIFIED Status: Chronic (10) Paroxysmal atrial fibrillation Code(s): I48.0 - PAROXYSMAL ATRIAL FIBRILLATION Status: Chronic - Plan CT chest with possibility of infectious process, will give full course of Levaquin On lasix BID- switch to po ECHO with severely depressed EF 15-20%, started on Entresto Cleared for discharge by Dr. Dutta, f/u PCP in one week and has appt with Dr. Batres later next month.
[2019-07-21 11:49] VITALS: TEMP 98
[2019-07-21 12:50] VITALS: BP 102/70
[2019-07-21] MEDS ORDERED: Atorvastatin Calcium 20 MG TAB PO SCH (21:00)
--- NOTE | 2019-07-23 11:01 | DIS ---
DATE OF ADMISSION: 07/19/2019 DATE OF DISCHARGE: 07/21/2019 PRIMARY CARE PHYSICIAN: Joao Power MD PRIMARY CFO: Abhay Batres MD REASON FOR ADMISSION: CHF exacerbation and possible pneumonia. DIAGNOSES AT DISCHARGE: 1. Acute on chronic severe systolic congestive heart failure. 2. Mild pneumonia. 3. Coronary artery disease. 4. Chronic anticoagulation. 5. Dyslipidemia. 6. Gout. 7. Hypertension. 8. Hypothyroidism. 9. Peripheral artery disease. 10. Paroxysmal atrial fibrillation. PROCEDURES: 1. CT of the chest without contrast showing persistent chronic interstitial fibrotic lung changes with greater interstitial ground-glass densities in the left upper lobe may be related to superimposed more acute infectious process. Small left pleural effusion and cardiomegaly with prominent coronary artery calcifications. 2. Echocardiogram showing ejection fraction of 15% to 20% and severely increased left ventricular size. Inferior and posterior graves are akinetic. CONSULTATIONS: Cardiology, Karishma Dutta MD SUMMARY OF HOSPITAL COURSE: This is a 69-year-old white male with a known history of systolic congestive heart failure and an EF around 15% in the past. He came in with shortness of breath, also with some chest pain, difficulty breathing with lying flat, and shortness of breath with movement approximately 50 feet. He was found to be volume overloaded in the emergency room and given Lasix. Also had a questionable infiltrate versus mass on his chest x-ray. A CT scan done, which showed the above findings. The patient was given Levaquin in the emergency room. This was continued during hospitalization. He had no increased white count and no fevers and no significant cough with sputum. The patient improved during hospitalization. Dr. Dutta was consulted. He started the patient on Entresto. He tolerated this well with blood pressures running in the 90s to low 100s. He was ambulating in the stokes without oxygen on the day of discharge and was eager to get home. I did discuss the case with Dr. Dutta and he cleared him for discharge and so he can follow up with Dr. Batres as an outpatient. DISCHARGE MANAGEMENT: Discharged home. FOLLOWUP: Follow up with Dr. Batres on August 21 at [address] Joao Power next week. ACTIVITY: As tolerated. DIET: Healthy heart fluid-restricted diet. MEDICATIONS: 1. Cefdinir 300 mg twice a day for 4 more days. 2. Entresto 24/26 mg one tablet twice a day, 60 tablets dispensed. 3. Eliquis 5 mg twice a day. 4. Aspirin 81 mg daily. 5. Atorvastatin 20 mg daily. 6. Carvedilol 3.125 mg twice a day. 7. Digoxin 0.125 mg. 8. Levothyroxine 150 mcg daily. 9. The patient is to discontinue his lisinopril. TIME SPENT: Arranging this discharge took 32 minutes. Job ID: [id number]
== END 2019-07-21 14:25 | disposition home or self-care (01) | DRG 291 ==
LOC: ERS 14:53 → ERHOLD 17:42 → 2NO 20:39
PROVIDERS: ADMIT Family Medicine; ATTEND Family Medicine
DX: I11.0 Hypertensive heart disease with heart failure (principal); J18.9 Pneumonia, unspecified organism; R64 Cachexia; Z68.1 Body mass index [BMI] 19.9 or less, adult; I50.23 Acute on chronic systolic (congestive) heart failure; I73.9 Peripheral vascular disease, unspecified; E03.9 Hypothyroidism, unspecified; I48.0 Paroxysmal atrial fibrillation; M25.531 Pain in right wrist; D64.9 Anemia, unspecified; I25.10 Atherosclerotic heart disease of native coronary artery without angina pectoris; E78.5 Hyperlipidemia, unspecified; M10.9 Gout, unspecified; Z79.01 Long term (current) use of anticoagulants; Z95.810 Presence of automatic (implantable) cardiac defibrillator
CPT/HCPCS: 36415; 71045; 71250; 80048; 80053; 82550; 82553; 83690; 83735; 83880; 84439; 84443; 84484; 85025; 87804; 93005; 93306; 93798; 94760; 96365; 96366; 96375; J1940; J1956

== ENCOUNTER 2019-08-19 09:38 | Outpatient (CLI) | payer MEDICARE ==
--- NOTE | 2019-08-19 09:47 | RAD ---
EXAM: Chest 2 views: HISTORY: Dyspnea COMPARISON: 07/19/2019 FINDINGS: There is a normal-sized cardiomediastinal silhouette. The pacemaker is unchanged in position. Chroni c interstitial lung markings are present. There is no evidence of consolidation, mass, or pleural effusion. The bones are unremarkable. IMPRESSION: Chronic lung disease without evidence of acute cardiopulmonary disease
== END 2019-08-19 09:39 | disposition home or self-care (01) ==
LOC: RAD 09:38
PROVIDERS: ATTEND Internal Medicine Critical Care Medicine
DX: R06.00 Dyspnea, unspecified (principal); J98.4 Other disorders of lung
CPT/HCPCS: 71046

== ENCOUNTER 2019-09-29 13:37 | Inpatient (IN) | payer MEDICARE ==
[2019-09-29 14:18] LABS: #Lymphocytes 0.8 thou/uL (1.20-3.40); #Monocytes 1.4 thou/uL (0.11-0.59); #Neutrophils 8.7 thou/uL (1.40-6.50); %Basophils 0.1 % (0.0-1.0); %Eosinophils 0.3 % (0.0-10.0); %Lymphocytes 7.2 % (21.0-51.0); %Monocytes 12.4 % (0.0-10.0); Hemoglobin 7.1 g/dL (14.0-18.0); Mean Corpuscular HGB CONC 32.4 g/dL (32.0-36.0); Mean Corpuscular Hemoglobin 28.2 pg (27.0-31.0); Mean Corpuscular Volume 87.1 fL (78.0-98.0); Mean Platelet Volume 8.9 fL (7.4-10.4); Platelet Count 522 thou/uL (130-400); RBC Distribution Width 18.6 % (11.5-14.5); Red Blood Cell (RBC) Count 2.52 mill/uL (4.70-6.10); White Blood Cell (WBC) Count 10.8 thou/uL (4.8-10.8)
[2019-09-29 14:35] LABS: ALT (SGPT) 33 U/L (8-55); AST (SGOT) 16 U/L (5-34); Albumin 2.9 g/dL (3.4-4.8); Alkaline Phosphatase 166 U/L (40-110); Anion Gap 15 mmol/L (10-20); BUN (Urea Nitrogen) 70 mg/dL (8.4-25.7); Bilirubin, Total 0.3 mg/dL (0.2-1.2); Calc. Creatinine Clearance 0 mL/min (70-130); Calcium 8.8 mg/dL (7.8-10.44); Carbon Dioxide 21 mmol/L (23-31); Chloride 105 mmol/L (98-107); Estimated GFR-MDRD 37; Globulin 3.6 g/dL (2.4-3.5); Glucose 120 mg/dL (80-115); Potassium 6.5 mmol/L (3.5-5.1); Protein, Total 6.5 g/dL (5.8-8.1); Sodium 134 mmol/L (136-145)
--- NOTE | 2019-09-29 14:43 | RAD ---
PORTABLE CHEST 1 VIEW: Date: 09/29/2019 Time: 1356 hours HISTORY: Dyspnea. COMPARISON: 08/19/2019. FINDINGS: The heart is enlarged. The aorta is tortuous. Left-sided AICD remains in place. Chronic parenchymal c hanges are again seen. No pneumothoraces, lobar consolidation, or pleural effusions are identified. IMPRESSION: Stable exam. No acute process. POS: TPC
[2019-09-29 14:52] LABS: CKMB 2.6 ng/mL (0-6.6)
[2019-09-29 15:09] LABS: Bicarbonate (HCO3v) 22.7 mmol/L (22.0-28.0); Calcium, Ionized 1.15 mmol/L (See Comments:); Chloride 110 mmol/L (98-107); Hemoglobin - Calc 6.5 g/dL (14.0-18.0); Potassium 6.4 mmol/L (3.5-5.1); Sodium 137 mmol/L (138-145); T. Carbon Dioxide 24.2 mmol/L (22.0-28.0); vO2 Saturation-calc 52.4 % (60.0-85.0)
[2019-09-29] MEDS ORDERED: Furosemide 20 MG/2 ML VIAL ONE (15:27)
[2019-09-29] MEDS ORDERED: Aspirin Chewable 81 MG TAB ONE (15:27)
[2019-09-29] MEDS ORDERED: Insulin Regular 300 UNITS/3 ML VIAL ONE (15:27)
[2019-09-29] MEDS ORDERED: Sodium Bicarb 50 MEQ/50 ML VIAL ONE ×3 (15:27→15:36)
[2019-09-29] MEDS ORDERED: Dextrose 50% Abboject 50 ML SYRINGE ONE (15:27)
[2019-09-29] MEDS ORDERED: Albuterol Sulfate 2.5 mg/3 ml Neb ONE (16:48)
[2019-09-29] MEDS ORDERED: Albuterol Sulfate 2.5 mg/0.5 ml Neb ONE (16:48)
[2019-09-29] MEDS ORDERED: Pantoprazole 40 MG VIAL IVP SCH (17:15)
[2019-09-29 17:39] LABS: Troponin I 0.051 ng/mL (< 0.028)
--- NOTE | 2019-09-29 17:53 | PRG ---
DATE OF SERVICE: 09/29/2019 The patient's blood pressure continues to be low. Reviewing the patient's old records, the patient hemoglobin runs between 9 to 10. Today it is 7.1. Cannot entirely rule out underlying GI bleeding being on anticoagulant Eliquis. We will start the patient on IV proton pump inhibitor. The ED physician ordered 1 unit packed RBCs. We will start the patient on IV proton pump inhibitor. We will monitor hemoglobin and hematocrit. We will upgrade the patient to intensive care unit. Also, we will consult GI. Job ID: [id number]
[2019-09-29 18:51] LABS: Anion Gap 15 mmol/L (10-20); BUN (Urea Nitrogen) 64 mg/dL (8.4-25.7); Calc. Creatinine Clearance 0 mL/min (70-130); Calcium 7.8 mg/dL (7.8-10.44); Carbon Dioxide 19 mmol/L (23-31); Chloride 110 mmol/L (98-107); Estimated GFR-MDRD 44; Glucose 171 mg/dL (80-115); Potassium 5.8 mmol/L (3.5-5.1); Sodium 138 mmol/L (136-145)
[2019-09-29 20:35] LABS: Troponin I 0.053 ng/mL (< 0.028)
[2019-09-29 22:37] LABS: Hemoglobin 7.7 g/dL (14.0-18.0); Mean Corpuscular HGB CONC 33.2 g/dL (32.0-36.0); Mean Corpuscular Hemoglobin 29.8 pg (27.0-31.0); Mean Corpuscular Volume 89.5 fL (78.0-98.0); Mean Platelet Volume 8.1 fL (7.4-10.4); Platelet Count 470 thou/uL (130-400); RBC Distribution Width 17.7 % (11.5-14.5); Red Blood Cell (RBC) Count 2.58 mill/uL (4.70-6.10); White Blood Cell (WBC) Count 9.9 thou/uL (4.8-10.8)
[2019-09-29 22:56] LABS: Hypochromia SLIGHT = 6-15 cells (100X) (0-5/hpf); Lymphocytes 2 % (21-51); MDiff Complete? YES; Neutrophil 98 % (42-75); Platelet Morphology Comment Appears Increased; Polychromasia SLIGHT = 2-3 cells (100X) (0-2/hpf)
[2019-09-30] MEDS: Sodium Chloride 0.9% 1,000 ML IV SCH ×2 (00:43→12:54)
[2019-09-30 05:07] LABS: Anion Gap 12 mmol/L (10-20); BUN (Urea Nitrogen) 50 mg/dL (8.4-25.7); Calc. Creatinine Clearance 44 mL/min (70-130); Calcium 8.3 mg/dL (7.8-10.44); Carbon Dioxide 19 mmol/L (23-31); Chloride 109 mmol/L (98-107); Estimated GFR-MDRD 65; Glucose 90 mg/dL (80-115); Potassium 5.5 mmol/L (3.5-5.1); Sodium 134 mmol/L (136-145)
[2019-09-30 05:24] LABS: Hemoglobin 7.4 g/dL (14.0-18.0); Hypochromia SLIGHT = 6-15 cells (100X) (0-5/hpf); Lymphocytes 7 % (21-51); MDiff Complete? YES; Mean Corpuscular HGB CONC 32.3 g/dL (32.0-36.0); Mean Platelet Volume 8.4 fL (7.4-10.4); Monocytes 4 % (0-10); Neutrophil 89 % (42-75); Platelet Count 466 thou/uL (130-400); Platelet Morphology Comment Appears Increased; RBC Distribution Width 17.5 % (11.5-14.5); Red Blood Cell (RBC) Count 2.54 mill/uL (4.70-6.10)
[2019-09-30] MEDS ORDERED: Furosemide 40 MG/4 ML VIAL SLOW IVP SCH (06:00)
--- NOTE | 2019-09-30 07:59 | HP ---
CHIEF COMPLAINT: Shortness of breath. HISTORY OF PRESENT ILLNESS: Mr. Patel is a 69-year-old male with past medical history of atrial fibrillation, myocardial infarction, hypothyroidism, AICD, aortic valve replacement, among others, presented to the emergency room with shortness of breath, which had been going on lately, but got worse today. The patient was hospitalized in June for the same symptoms. Workup in the emergency room, the patient was found to be in acute renal failure with a creatinine of 1.8, hyperkalemic with a potassium of 6.5. BNP is elevated at 636. Troponin 0.07. Medical treatment for hyperkalemia started in the ED. The patient also has been on IV Lasix. The patient was found to be anemic with a hemoglobin of 7.1. The patient is being admitted to the hospital for further management. PAST MEDICAL HISTORY: As mentioned above in the history of present illness. PAST SURGICAL HISTORY: 1. Aortic valve replacement/repair. 2. Cardiac ablation. 3. AICD. 4. Left femoral stent. SOCIAL HISTORY: The patient drinks socially. No smoking history. FAMILY HISTORY: Reviewed and noncontributory. ALLERGIES: NO KNOWN ALLERGIES. HOME MEDICATIONS: Please see home medication reconciliation form for updated medications. PHYSICAL EXAMINATION: GENERAL: The patient is awake, alert, does not appear to be in acute distress. VITAL SIGNS: Blood pressure 90/60, pulse is 94, respiratory rate is 20, temperature 97.6, oxygen saturation is 100% on room air. HEAD: Normocephalic, atraumatic. NECK: Supple. CHEST: Fair bilateral air entry. HEART: Distant heart sounds. ABDOMEN: Soft, nontender. Bowel sounds present. NEUROLOGIC: Awake, alert, and oriented x3. PSYCHIATRIC: Unable to assess. EXTREMITIES: No clubbing or cyanosis. LABORATORY DATA: Chest x-ray, no acute findings. Electrolytes; sodium is 134, potassium 6.5, BUN is 70, creatinine 1.8. WBC 10.8, hemoglobin 7.1, platelets 522. EKG showed normal sinus rhythm with a rate of 82, nonspecific ST changes. ASSESSMENT AND PLAN: 1. Acute renal failure. 2. Acute hyperkalemia. 3. Congestive heart failure ?acute, revision?? 4. Anemia. 5. Coronary artery disease. 6. History of atrial fibrillation. 7. Anticoagulated on Eliquis. 8. Automatic implantable cardioverter defibrillator. PLAN: 1. Admit to IMCU. 2. Medical management of hyperkalemia started in the ED. 3. Cautious IV diuresis given the patient's low blood pressure. 4. Monitor kidney function and urine output. 5. Consult the patient's escalator service mechanic for evaluation and further management. 6. Consider nephrology consultation for evaluation and further management. 7. Monitor hemoglobin and hematocrit. 8. Reconcile home medications. 9. DVT prophylaxis as appropriate. 10. Expected length of stay, 2 midnights or more. Job ID: [id number]
[2019-09-30] MEDS ORDERED: Aspirin Chewable 81 MG TAB PO SCH (09:00)
[2019-09-30] MEDS: Pantoprazole 40 MG VIAL IVP SCH ×2 (10:34→20:11)
[2019-09-30 12:46] LABS: Anion Gap 9 mmol/L (10-20); BUN (Urea Nitrogen) 36 mg/dL (8.4-25.7); Calc. Creatinine Clearance 52 mL/min (70-130); Calcium 8.7 mg/dL (7.8-10.44); Carbon Dioxide 22 mmol/L (23-31); Chloride 108 mmol/L (98-107); Estimated GFR-MDRD 80; Glucose 88 mg/dL (80-115); Potassium 5.4 mmol/L (3.5-5.1); Sodium 134 mmol/L (136-145)
--- NOTE | 2019-09-30 16:45 | CT ---
CT Chest WO Con History: Shortness of breath. Lung mass Comparison: Chest radiograph prior day. CT of the chest June 2019. Findings: Peripheral pleural reticulation is similar with early honeycombing. This involves the lung bases slightly greater than the lung apices. No significant groundglass, previous groundglass has resolved. Mild traction bronchiectasis left lower lobe. No suspicious solitary pulmonary mass. Multiple foci of peripheral round atelectasis and scar. Atrophic left kidney. Heart size is enlarged. No significant pericardial effusion. No acute osseous abnormality. No acute displaced thoracic spine fracture. Sternum and manubrium are i ntact. Impression: 1. No suspicious pulmonary mass. 2. Findings of pulmonary fibrosis, early stage, with early bibasilar honeycombing. 3. No evidence for pneumonia. 4. Interval resolution of ground glass opacities and pleural effusions.
--- NOTE | 2019-09-30 16:55 | CON ---
DATE OF CONSULTATION: REASON FOR CONSULTATION: Hyperkalemia. HISTORY OF PRESENT ILLNESS: This is a 69-year-old gentleman with CKD, stage 3, who was started on Entresto with rising potassium of 6.5, so I was consulted. The patient denies numbness, tingling, or weakness. Denies any nausea, vomiting, or chest pain. PAST MEDICAL HISTORY: Aortic valve replacement, cardiac ablation, AICD, femoral stent, history of COPD, and history of chronic hypoxia. SOCIOECONOMIC HISTORY: No alcohol or drug use. FAMILY HISTORY: Negative for ESRD. ALLERGIES: REVIEWED. MEDICATIONS: Home medications list, reviewed. Hospital medications list, reviewed. REVIEW OF SYSTEMS: A 15-point review of systems was performed, was negative except for positives noted above. HEENT: Eyes intact, no diplopia. Ears: No hearing loss or earache. Nose: No discharge or bleeding. CHEST: No cough or phlegm. ABDOMEN: No nausea or vomiting. GENITOURINARY: No hematuria. No Salas catheter. MUSCULOSKELETAL: No low back pain. No joint swelling or pain. NEUROLOGICAL: No syncope. No seizures. SKIN: No complaints of rash or itching. PSYCHIATRIC: No depression. CONSTITUTIONAL: No weight loss or loss of appetite. PHYSICAL EXAMINATION: GENERAL: The patient is awake and alert. VITAL SIGNS: Afebrile, pulse 64, breathing at 16, blood pressure 122/66. HEENT: Head normocephalic and atraumatic. Eyes intact, no ulcers. Nose intact, no ulcers. Ears intact, no ulcers. NECK: Supple. No JVD. CHEST: Symmetrical and clear. CARDIOVASCULAR: Shows S1 and S2, no rub, no murmur. GASTROINTESTINAL: Abdomen is soft, bowel sounds positive. EXTREMITIES: Show no edema or ulcers. SKIN: Shows no rash or petechiae. MUSCULOSKELETAL: Shows no joint swelling or stiffness. GENITOURINARY: Shows no Salas or CVA tenderness. NEUROLOGIC: Motor intact. Cranial nerves intact. LABORATORY DATA: Show hemoglobin 7.4. Sodium 134, potassium 5.4. ASSESSMENT AND PLAN: 1. Acute kidney injury, improved. 2. Hypertension, stable. 3. Anemia, stable. 4. Hyperkalemia, most likely because of ARB. I would recommend to stop Entresto and give Kayexalate. No indication for dialysis. 5. Congestive heart failure. I will stop IV fluids. Job ID: [id number]
[2019-09-30] MEDS ORDERED: Amiodarone 150 MG, Admixture Fee 1 EACH in Dextrose 5% in Water 100 ML IVPB SCH (17:00)
[2019-09-30] MEDS: Carvedilol 3.125 MG TAB PO SCH (17:18)
[2019-09-30] MEDS: Amiodarone 450 MG in Dextrose 5% in Water 250 ML IVPB SCH (17:41)
[2019-09-30 17:53] LABS: ALT (SGPT) 24 U/L (8-55); AST (SGOT) 11 U/L (5-34); Albumin 2.9 g/dL (3.4-4.8); Alkaline Phosphatase 162 U/L (40-110); Bilirubin, Direct 0.3 mg/dL (0.1-0.3); Bilirubin, Total 0.6 mg/dL (0.2-1.2); Magnesium 1.8 mg/dL (1.6-2.6); Protein, Total 6.5 g/dL (5.8-8.1)
--- NOTE | 2019-09-30 18:20 | CON ---
DATE OF CONSULTATION: 09/30/2019 CHIEF COMPLAINT: Shortness of breath. HISTORY OF PRESENT ILLNESS: Mr. Patel is a 69-year-old man with severe cardiomyopathy, who was readmitted to the hospital yesterday with shortness of breath. He has chronic anemia with a hemoglobin that runs between 9 and 10, but his hemoglobin this time was noted to be down to 7.1 range and GI was consulted to evaluate for bleeding. The patient has had no nausea, vomiting, diarrhea, or constipation. No visible blood in the stool. He is on Eliquis for anticoagulation. He was admitted back in June with shortness of breath as well. An echocardiogram at that time showed his left ventricular ejection fraction at 15% to 20% with dilated left ventricle and atrium with moderate mitral regurgitation and [id number] tricuspid regurgitation. He states that he has not been out of bed since June due to the shortness of breath. He does ambulate to the bathroom. He has had a CT scan of the chest today, that showed changes to pulmonary fibrosis. He was noted to have acute renal failure on presentation and his creatinine is trending down now. He was also hyperkalemic on presentation, and Entresto and his ARB have been held due to that. PAST MEDICAL HISTORY: 1. Cardiomyopathy. 2. Atrial fibrillation status post AICD and aortic valve replacement. 3. He has peripheral vascular disease and has had a left femoral stent previously. 4. CT suggests mild pulmonary fibrosis. 5. He has had upper endoscopy by Dr. Sam back in 09/2017, which was normal. 6. He had a screening colonoscopy in 04/2016, which was normal with repeat recommended for 10 years. PAST SURGICAL HISTORY: 1. AICD placement. 2. Aortic valve surgery. FAMILY HISTORY: Negative for GI malignancies. SOCIAL HISTORY: No smoking. He has had prior alcohol use. No drugs. Alcohol use previously has not been heavy. ALLERGIES: NO KNOWN DRUG ALLERGIES. MEDICATIONS: Prior to admission, include: 1. Prednisone. 2. Entresto. 3. Metolazone. 4. Levothyroxine. 5. Indomethacin. 6. Furosemide. 7. Digoxin. 8. Carvedilol. 9. Aspirin. 10. Apixaban, his last dose of apixaban was yesterday morning. 11. Allopurinol. Current inpatient medications, include: 1. Allopurinol. 2. Amiodarone. 3. Carvedilol. 4. Digoxin. 5. Furosemide. 6. Levothyroxine. 7. Metolazone. 8. Pantoprazole. 9. Prednisone. REVIEW OF SYSTEMS: Negative x10 systems reviewed, except as stated in history of present illness. PHYSICAL EXAMINATION: VITAL SIGNS: Temperature 97.9, pulse 84, and blood pressure 112/56. GENERAL: He is in no acute distress. Alert and oriented x3. HEENT: Eyes have no scleral icterus. Oropharynx is clear without lesions. No cervical or supraclavicular lymphadenopathy. LUNGS: Clear to auscultation bilaterally. HEART: Irregular rhythm. No murmur. ABDOMEN: Soft, nontender, and nondistended. Bowel sounds are present. EXTREMITIES: No lower extremity edema. LABORATORY DATA: White blood cell count 9.0; hemoglobin 7.4 today, he received 1 unit transfusion yesterday, prior to transfusion his hemoglobin was 7.1; and platelets 466. Sodium 134, potassium 5.4, BUN is 36, creatinine 0.9 down from 1.81 yesterday. BNP 600. IMPRESSION: 1. Anemia. His hemoglobin is 7, which is below his baseline between 9 and 10. He has had no overt bleeding associated with this. He is on Eliquis. He had Hemoccult negative stool on presentation. I performed rectal exam now, which shows brown stool in the rectal vault without any evidence of melena or blood. He had negative upper endoscopy 2 years ago and normal colonoscopy 4 years ago. I will check his ferritin now, and if he is iron deficient, then consider upper endoscopy to further evaluate this. If he is not iron deficient, given the severity of his cardiomyopathy, I would hold off endoscopy at this point. Again, there is no evidence of overt acute bleeding. 2. Acute renal failure, resolved. 3. Hyperkalemia, improving. This is thought to be secondary to medication. RECOMMENDATIONS: 1. I added a ferritin level to the admission labs. 2. Given his use of aspirin and prednisone, it would be reasonable to cover with pantoprazole empirically for the next month. If he has confirmed iron deficiency, then we can proceed with endoscopy. Otherwise, we will monitor clinically. Job ID: [id number]
[2019-09-30 18:46] LABS: Anion Gap 17 mmol/L (10-20); BUN (Urea Nitrogen) 33 mg/dL (8.4-25.7); Calc. Creatinine Clearance 45 mL/min (70-130); Calcium 8.7 mg/dL (7.8-10.44); Carbon Dioxide 17 mmol/L (23-31); Chloride 108 mmol/L (98-107); Estimated GFR-MDRD 67; Glucose 100 mg/dL (80-115); Potassium 5.8 mmol/L (3.5-5.1); Sodium 136 mmol/L (136-145)
--- NOTE | 2019-09-30 19:21 | CON ---
DATE OF CONSULTATION: 09/30/2019 HISTORY OF PRESENT ILLNESS: Mr. Patel is a pleasant 69-year-old male, seen by me recently in the office for weight loss. He has been followed by the packaging assembler here at [facility] for severe systolic cardiomyopathy. He has a defibrillator in place. He has a history of atrial fibrillation. He presented with progressive shortness of breath. He was found to be anemic and has been transfused. PAST MEDICAL HISTORY: Remarkable for; 1. Hypothyroidism, on replacement. 2. History of cardiomyopathy. 3. History of gout. 4. History of atrial fibrillation. 5. History of myocardial infarction. 6. History of aortic bifemoral bypass. FAMILY HISTORY: Negative for lung disease in early age. SOCIAL HISTORY: He is not a smoker or drinker. REVIEW OF SYSTEMS: Otherwise, negative. We did find that placing him on 20 mg of prednisone a day in July led to weight gain. Last visit on September 14, his prednisone was cut back to 10 mg a day. Imaging was reviewed from past hospitalizations and he does have an increase in interstitial markings, but it is unclear to me whether or not he had some early interstitial lung disease. Review of systems is otherwise unremarkable. He does say he feels a little better than he did on admission after his transfusion. PHYSICAL EXAMINATION: VITAL SIGNS: He is afebrile. Heart rate is 84, respiratory rate is 16, oximetry is fluctuating between 92% and 99% on room air, blood pressure is 112/56. HEAD AND NECK: Unremarkable. LUNGS: Remarkable for crackles at both lung bases. HEART: Regular rhythm. ABDOMEN: Soft. EXTREMITIES: Without clubbing, cyanosis, or edema. LABORATORY DATA: White count 9.0; hemoglobin 7.1 on admission, it is 7.4 today; platelets 466,000; MCV is 90. Sodium 134; potassium 5.4; chloride 108; bicarb 22; BUN 36; creatinine 0.94, his creatinine was 1.58 on admission. DIAGNOSTIC DATA: Chest radiograph compared to old x-rays is unchanged. IMPRESSION AND PLAN: 1. Anemia. The etiology of his anemia is unclear at this point in time. Gastroenterology has been consulted. He has no history of dark stool or vomiting blood. 2. Other problems include chronic systolic cardiomyopathy with an elevated creatinine and elevated potassium on admission. He has been on Entresto as an outpatient, which may be contributing to his electrolyte abnormalities. His packaging assembler should be notified of his admission. 3. Anorexia responding to a low dose of prednisone. 4. Atrial fibrillation, on amiodarone. I will be happy to follow the other physicians caring for him. I was apparently consulted for oxygen therapy. He does not qualify for oxygen at this point. I do think he should be gently transfused up to a hemoglobin 9 or 10, given his severe cardiomyopathy. TIME SPENT: This is a 50-minute consult, 50% of the time spent on the unit coordinating care. Job ID: [id number] MTDD
[2019-09-30 19:36] LABS: Iron 17 ug/dL (65-175); Iron Binding Capacity, Total 188 mcg/dL (261-462)
--- NOTE | 2019-09-30 19:36 | PDOC.HOSPP ---
- Subjective Encounter Date: 09/30/19 Encounter Time: 09:00 Subjective: Pt seen for followup re: symptomatic anemia. States he feels SOBOE. - Objective Vital Signs & Weight: Vital Signs (12 hours) Temp Pulse Resp BP Pulse Ox 09/30/19 16:00 98.2 F 92 16 100/58 L 99 09/30/19 12:00 97.9 F 84 16 112/56 L 99 09/30/19 07:48 97.4 F L 89 16 107/55 L 92 L Weight Admit Weight 108 lb 7 oz Weight 108 lb 7 oz I&O: 09/29/19 09/30/19 10/01/19 06:59 06:59 06:59 Intake Total 120 Output Total 975 Balance -855 Result Diagrams: 09/30/19 04:26 09/30/19 17:14 Additional Labs: Labs and MARs reviewed by me EKG Reviewed by me: Yes (Tele: NSR) Hospitalist ROS - Review of Systems Constitutional: reports: weakness. denies: fever, chills, sweats, malaise Respiratory: reports: cough, dry, SOB with excertion. denies: shortness of breath, hemoptysis, pleuritic pain, sputum, wheezing Cardiovascular: denies: chest pain, palpitations, orthopnea, paroxysmal noc. dyspnea, edema, light headedness Gastrointestinal: denies: nausea, vomiting, abdominal pain, diarrhea, constipation, melena, hematochezia Genitourinary: denies: dysuria, frequency, incontinence, hematuria, retention - Medication Medications: Active Medications Generic Name Dose Route Start Last Admin Trade Name Cristoq PRN Reason Stop Dose Admin Carvedilol 3.125 mg 09/30/19 17:00 09/30/19 17:18 Coreg PO 3.125 mg BID-WM DEJUAN Administration Amiodarone HCl 450 mg/ 259 mls @ 0 mls/hr 09/30/19 15:45 09/30/19 17:41 Dextrose/Water IVPB 259 mls INF DEJUAN Administration Protocol Per Protocol Pantoprazole Sodium 40 mg 09/30/19 09:00 09/30/19 10:34 Protonix IVP 40 mg Q12HR DEJUAN Administration - Exam General Appearance: awake alert General - other findings: appears malnourished Eye: anicteric sclera ENT: normocephalic atraumatic, moist mucosa Neck: supple, symmetric, no thyromegaly, no lymphadenopathy Heart: RRR, no gallops, no rubs, normal peripheral pulses Respiratory: no ronchi, normal chest expansion, no tachypnea Respiratory - other findings: Occ wheeze Gastrointestinal: soft, non-tender, non-distended, normal bowel sounds Musculoskeletal: diffuse muscle atrophy Psychiatric: normal affect, normal behavior, A&O x 3 Hosp A/P (1) Symptomatic anemia Code(s): D64.9 - ANEMIA, UNSPECIFIED Status: Acute (2) Hyperkalemia Code(s): E87.5 - HYPERKALEMIA Status: Acute (3) CAD (coronary artery disease) Code(s): I25.10 - ATHSCL HEART DISEASE OF [place] CORONARY ARTERY W/O ANG PCTRS Status: Chronic (4) Chronic anticoagulation Code(s): Z79.01 - SHAMPOO TECHNICIAN (CURRENT) USE OF ANTICOAGULANTS Status: Chronic (5) Dyslipidemia Code(s): E78.5 - HYPERLIPIDEMIA, UNSPECIFIED Status: Chronic (6) Hypertension Code(s): I10 - ESSENTIAL (PRIMARY) HYPERTENSION Status: Chronic (7) Hypothyroidism Code(s): E03.9 - HYPOTHYROIDISM, UNSPECIFIED Status: Chronic (8) Paroxysmal atrial fibrillation Code(s): I48.0 - PAROXYSMAL ATRIAL FIBRILLATION Status: Chronic (9) Protein-calorie malnutrition, severe Code(s): E43 - UNSPECIFIED SEVERE PROTEIN-CALORIE MALNUTRITION Status: Chronic (10) Chronic systolic CHF (congestive heart failure), NYHA class 2 Code(s): I50.22 - CHRONIC SYSTOLIC (CONGESTIVE) HEART FAILURE Status: Chronic - Plan plan discussed w/ family, out of bed/ambulate, DVT proph w/SCDs Pt seen by GI re: symptomatic anemia suspected to be secondary to GI blood loss. Apixaban and aspirin are on hold. s/p 1 unit pRBC transfusion. Pt received kayexalate, administer albuterol neb. Entresto is on hold due to hyperkalemia. TSH markedly decreased, check free T4, decrease synthroid to 100 mcg daily for now. Pt was started on amio drip due to runs of a. fib, converted to NSR. LUIS DANIEL resolved. Continue furosemide and metolazone.
[2019-09-30] MEDS ORDERED: Albuterol Sulfate 2.5 mg/3 ml Neb NEB SCH (19:45)
--- NOTE | 2019-09-30 19:59 | CON ---
DATE OF CONSULTATION: HISTORY OF PRESENT ILLNESS: Josr Patel is a 69-year-old white male, patient of previously Dr. Mcallister, but now following with Dr. Batres. He apparently has had 7 or 8 myocardial infarctions and has an ischemic cardiomyopathy. He has a single-chamber [employer] ICD. He has undergone previous atrial fibrillation, ablation. He has had several admissions for congestive heart failure. He saw Dr. Canas on 09/17 and the decision was made to have him upgrade to a biventricular ICD with his borderline widened QRS complex. Mr. Patel denies any chest discomfort. He does state that he has significant dyspnea just walking to the bathroom and back. Ultimately, came to the emergency room for this and was found to be significantly anemic. PAST MEDICAL HISTORY: 1. Multiple myocardial infarctions. 2. Ischemic cardiomyopathy with last ejection fraction of 15% to 20%. 3. History of atrial fibrillation. 4. Hypothyroidism. 5. Peripheral vascular disease. PAST SURGICAL HISTORY: 1. Single-chamber ICD placement ([employer]). 2. Atrial fibrillation ablation. 3. Aortofemoral bypass with placement of left femoral stent. MEDICATIONS: 1. Metolazone 2.5 daily. 2. Eliquis 5 mg b.i.d. 3. Prednisone 20 daily. 4. Digoxin 0.125 daily. 5. Aspirin 81 daily. 6. Indomethacin p.r.n. 7. Carvedilol 3.125 b.i.d. 8. Entresto 24/26 b.i.d. 9. Furosemide 20 b.i.d. 10. Levothyroxine 150 daily. 11. Allopurinol 300 daily. ALLERGIES: NONE. SOCIAL HISTORY: He does not smoke or drink. REVIEW OF SYSTEMS: Otherwise unremarkable. PHYSICAL EXAMINATION: VITAL SIGNS: Blood pressure 112/56, pulse of 84. HEENT: PERRL. NECK: Supple. CHEST: Clear. CARDIAC: S1 and S2 normal without any S3 or S4. ABDOMEN: Normal bowel sounds without tenderness or organomegaly. EXTREMITIES: No clubbing, cyanosis, or edema. NEUROLOGIC: Grossly intact. LABORATORY AND DIAGNOSTIC DATA: EKG reveals normal sinus rhythm with nonspecific ST and T-wave changes and intraventricular conduction delay. Hemoglobin 7.4, hematocrit 22.9, white count 9000, platelets 466,000. Sodium 134, potassium 5.4 , chloride 108, carbon dioxide 22, BUN 36, and creatinine 0.94. On admission, his creatinine was 1.81 and potassium was 6.5. BNP 923.4. Troponin-I 0.071. IMPRESSION: 1. Acute kidney injury with acute hyperkalemia. 2. Ischemic cardiomyopathy with last ejection fraction of 15% to 20%. 3. Severe anemia, on Eliquis. 4. History of atrial fibrillation, ablation. This morning, after admission, he has gone back into atrial fibrillation. 5. Coronary artery disease. 6. Single-chamber ICD placement. PLAN: Eliquis has been discontinued as well as Entresto with his acute kidney injury and elevated potassium. He will be placed on proton-pump inhibitor. With his recurrence of atrial fibrillation, he will be started on intravenous amiodarone. Electrophysiology will be consulted. Consideration may need to be given to GI evaluation with his severe anemia. Job ID: [id number] MTDRemy
[2019-09-30] MEDS: Furosemide 20 MG TAB PO SCH (20:11)
[2019-10-01] MEDS: Amiodarone 450 MG in Dextrose 5% in Water 250 ML IVPB SCH (03:19)
[2019-10-01 04:31] LABS: Anion Gap 12 mmol/L (10-20); BUN (Urea Nitrogen) 30 mg/dL (8.4-25.7); Calc. Creatinine Clearance 50 mL/min (70-130); Calcium 8.4 mg/dL (7.8-10.44); Carbon Dioxide 22 mmol/L (23-31); Chloride 104 mmol/L (98-107); Estimated GFR-MDRD 76; Glucose 96 mg/dL (80-115); Sodium 133 mmol/L (136-145)
[2019-10-01 04:32] LABS: Digoxin 0.75 ng/mL (0.8-2.0)
[2019-10-01 04:39] LABS: Band 7 % (5-11); Hemoglobin 7.1 g/dL (14.0-18.0); Hypochromia SLIGHT = 6-15 cells (100X) (0-5/hpf); Lymphocytes 15 % (21-51); MDiff Complete? YES; Mean Corpuscular HGB CONC 34.2 g/dL (32.0-36.0); Mean Corpuscular Volume 87.8 fL (78.0-98.0); Mean Platelet Volume 8.7 fL (7.4-10.4); Metamyelocyte 2 % (0-0); Monocytes 7 % (0-10); Neutrophil 69 % (42-75); Nucleated RBC 1 % (0); Ovalocytes SLIGHT = 2-5 cells (100X) (0-1/hpf); Platelet Count 493 thou/uL (130-400); Platelet Morphology Comment Appears Increased; RBC Distribution Width 18.2 % (11.5-14.5); Red Blood Cell (RBC) Count 2.35 mill/uL (4.70-6.10); White Blood Cell (WBC) Count 9.9 thou/uL (4.8-10.8)
[2019-10-01] MEDS: Levothyroxine Sodium 100 MCG TAB PO SCH (05:40)
[2019-10-01] MEDS ORDERED: Levothyroxine 150 MCG TAB PO SCH (06:00)
[2019-10-01] MEDS ORDERED: predniSONE 5 MG TAB PO SCH (08:00)
[2019-10-01] MEDS ORDERED: Metolazone 2.5 MG TAB PO SCH (08:30)
[2019-10-01] MEDS: Carvedilol 3.125 MG TAB PO SCH ×2 (09:04→16:56)
[2019-10-01] MEDS: Digoxin 0.125 MG TAB PO SCH (09:05)
[2019-10-01] MEDS: Allopurinol 300 MG TAB PO SCH (09:05)
[2019-10-01] MEDS: Pantoprazole 40 MG VIAL IVP SCH ×2 (09:06→20:40)
[2019-10-01] MEDS: Furosemide 20 MG TAB PO SCH ×2 (09:55→20:39)
[2019-10-01] MEDS ORDERED: Furosemide 40 MG/4 ML VIAL SLOW IVP SCH (11:30)
[2019-10-01] MEDS ORDERED: predniSONE 20 MG TAB PO SCH (11:30)
--- NOTE | 2019-10-01 12:18 | PRG ---
DATE OF SERVICE: 10/01/2019 SUBJECTIVE: Josr Patel has had no bright red blood per rectum. His hemoglobin is down to 7.1 again. His hemodynamics are stable. OBJECTIVE: VITAL SIGNS: He is afebrile. Heart rate is in 70s, respiratory rate is 18, oximetry is 100%, blood pressure 105/59. LUNGS: Clear except for crackles in both lung bases, which are chronic. HEART: Regular rhythm. ABDOMEN: Nontender. Renal function is stable with creatinine of 0.98, potassium is 5. IMPRESSION: 1. Anemia with normal mean corpuscular volume. The following hemoglobin argues that there is slow blood loss, but this is not an absolute rule. Gastroenterology is following. 2. Anorexia. His appetite improved and he gained 3 pounds on 20 mg of prednisone. We will cut his prednisone back to 10 mg a day. He quit gaining weight and quit eating, so bump his prednisone back up to 20 mg a day. 3. He needs another unit of blood in my opinion. I will order this. We will get Lasix with his blood. He has been followed by Cardiology. 4. He is in atrial fibrillation now and on an amiodarone drip. 5. His potassium is coming down. I would wonder if this has been related to his Entresto. We will continue to follow. Job ID: [id number]
--- NOTE | 2019-10-01 12:41 | PRG ---
DATE OF SERVICE: 10/01/2019 SUBJECTIVE: This is a 69-year-old gentleman being seen for hyperkalemia. The patient denied nausea, vomiting, or chest pain. OBJECTIVE: GENERAL: The patient is awake and alert. VITAL SIGNS: Afebrile, pulse 85, breathing at 16, blood pressure 112/61. HEENT: Head normocephalic and atraumatic. Eyes intact, no ulcers. Nose intact, no ulcers. Ears intact, no ulcers. NECK: Supple. No JVD. CHEST: Symmetrical and clear. CARDIOVASCULAR: Shows S1 and S2, no rub, no murmur. GASTROINTESTINAL: Abdomen is soft, bowel sounds positive. EXTREMITIES: Show no edema or ulcers. SKIN: Shows no rash or petechiae. MUSCULOSKELETAL: Shows no joint swelling or stiffness. GENITOURINARY: Shows no Salas or CVA tenderness. NEUROLOGIC: Motor intact. Cranial nerves intact. LABORATORY DATA: Labs show hemoglobin 7.1, potassium 5. ASSESSMENT AND PLAN: 1. Acute kidney injury with chronic kidney disease stage 2, stable. 2. Hyperkalemia, resolved. 3. Metabolic acidosis, resolved. 4. Anemia. Would recommend transfusion. I will sign off on this patient. Please reconsult as needed. Job ID: [id number]
--- NOTE | 2019-10-01 15:55 | PRG ---
DATE OF SERVICE: 10/01/2019 SUBJECTIVE: Mr. Patel is doing better, although he still complains of shortness of breath. He did have atrial fibrillation yesterday, but has converted to sinus rhythm. He has been on IV amiodarone. His last stress study was performed in December of 2018. His LVEF at that time was 15% with a large fixed lateral inferior wall defect. His echo also revealed an LVEF 15% to 20% with [id number] TR and right ventricular systolic pressure 40 mmHg. Mr. Patel also came in anemic. He has received 2 units of packed red blood cells. OBJECTIVE: GENERAL: Patient is a pleasant male who is in no acute distress. He does appear underweight and somewhat cachectic. VITAL SIGNS: Blood pressure 102/59, pulse 78, respirations 20. NEUROLOGIC: The patient is alert and oriented x3 with no focal neurologic deficits. HEENT: Sclerae without icterus. Mouth has moist mucous membranes with normal pallor. NECK: No JVD. Carotid upstroke brisk. No bruits bilaterally. LUNGS: Clear to auscultation with unlabored respirations. BACK: No scoliosis or kyphosis. CARDIAC: Regular rate and rhythm with normal S1 and S2. No S3 or S4 noted. No significant rubs, murmurs, thrills, or gallops noted throughout the precordium. PMI is not displaced. There is no parasternal heave. ABDOMEN: Soft, nontender, nondistended. No peritoneal signs present. No hepatosplenomegaly. No abnormal striae. EXTREMITIES: 2+ femoral and 2+ dorsalis pedis pulses. No cyanosis, clubbing, or edema. SKIN: No gross abnormalities. PERTINENT LABORATORY DATA: Hemoglobin 7.1, creatinine 0.98. IMPRESSION: 1. Shortness of breath. 2. Anemia. 3. Ischemic cardiomyopathy. 4. Status post implantable cardioverter-defibrillator. 5. Atrial fibrillation. RECOMMENDATIONS: Mr. Patel is currently receiving packed red blood cells. He also appears to be hyperthyroid with a TSH of 0.0039. I would like to start low-dose Dobutrex to help his inotropics support, but I am concerned about him reverting back to atrial fibrillation. At this point, we will continue current treatment. Continue transfusion. Hold any anticoagulants. Once he is stable, will need to undergo EGD and/or colonoscopy. Also, difficult to treat Mr. Patel with continued amiodarone therapy due to hyperthyroidism. Job ID: [id number]
--- NOTE | 2019-10-01 23:04 | PDOC.HOSPP ---
- Subjective Encounter Date: 10/01/19 Subjective: Not feeling much better after the second unit transfusion today. - Objective Vital Signs & Weight: Vital Signs (12 hours) Temp Pulse Pulse Resp BP BP BP 10/01/19 19:30 97.5 F L 79 12 107/62 10/01/19 18:29 98.4 F 109 H 18 158/82 H 10/01/19 16:16 97.8 F 91 20 105/60 10/01/19 16:06 97.7 F 80 14 102/58 L 10/01/19 13:20 98.5 F 78 18 102/59 L 10/01/19 12:53 98.3 F 81 20 93/52 L 10/01/19 11:58 98.0 F 78 19 92/52 L Pulse Ox 10/01/19 19:30 99 10/01/19 18:29 98 10/01/19 16:16 99 10/01/19 16:06 96 10/01/19 13:20 100 10/01/19 12:53 100 10/01/19 11:58 98 Weight Admit Weight 108 lb 7 oz Weight 106 lb 9.6 oz I&O: 09/30/19 10/01/19 10/02/19 06:59 06:59 06:59 Intake Total 120 403.4 1310 Output Total 975 1425 1150 Balance -855 -1021.6 160 Result Diagrams: 10/01/19 03:33 10/01/19 03:33 Hospitalist ROS - Medication Medications: Active Medications Generic Name Dose Route Start Last Admin Trade Name Freq PRN Reason Stop Dose Admin Allopurinol 300 mg 10/01/19 09:00 10/01/19 09:05 Zyloprim PO 300 mg DAILY DEJUAN Administration Carvedilol 3.125 mg 09/30/19 17:00 10/01/19 16:56 Coreg PO Not Given BID-WM DEJUAN Digoxin 0.125 mg 10/01/19 09:00 10/01/19 09:05 Lanoxin PO 0.125 mg QAM DEJUAN Administration Furosemide 20 mg 09/30/19 21:00 10/01/19 20:39 Lasix PO 20 mg BID DEUJAN Administration Levothyroxine Sodium 100 mcg 10/01/19 06:00 10/01/19 05:40 Synthroid PO 100 mcg 0600 DEJUAN Administration Metolazone 2.5 mg 10/01/19 08:30 10/01/19 09:05 Zaroxolyn PO 2.5 mg [facility]@0830 DEJUAN Administration Pantoprazole Sodium 40 mg 09/30/19 09:00 10/01/19 20:40 Protonix IVP 40 mg Q12HR DEJUAN Administration Sodium Chloride 10 ml 09/30/19 21:00 10/01/19 20:40 Flush - Normal Saline IVF 10 ml Q12HR DEJUAN Administration Sodium Chloride 10 ml 09/30/19 13:02 10/01/19 20:40 Flush - Normal Saline IVF 10 ml PRN PRN Administration Saline Flush - Exam General Appearance: NAD, awake alert General - other findings: cachexia Heart: RRR, no murmur, no gallops, no rubs, normal peripheral pulses Respiratory: CTAB, no wheezes, no rales, no ronchi, normal chest expansion, no tachypnea, normal percussion Gastrointestinal: soft, non-tender, non-distended, normal bowel sounds, no palpable masses, no hepatomegaly, no splenomegaly, no bruit Extremities: no cyanosis, no clubbing, no edema Skin: normal turgor Neurological: no focal deficits Musculoskeletal: normal tone Psychiatric: normal affect, normal behavior, A&O x 3 Hosp A/P (1) Symptomatic anemia Code(s): D64.9 - ANEMIA, UNSPECIFIED Status: Acute (2) Chronic systolic CHF (congestive heart failure), NYHA class 2 Code(s): I50.22 - CHRONIC SYSTOLIC (CONGESTIVE) HEART FAILURE Status: Chronic (3) Protein-calorie malnutrition, severe Code(s): E43 - UNSPECIFIED SEVERE PROTEIN-CALORIE MALNUTRITION Status: Chronic (4) AICD (automatic cardioverter/defibrillator) present Code(s): Z95.810 - PRESENCE OF AUTOMATIC (IMPLANTABLE) CARDIAC DEFIBRILLATOR Status: Chronic (5) CAD (coronary artery disease) Code(s): I25.10 - ATHSCL HEART DISEASE OF [place] CORONARY ARTERY W/O ANG PCTRS Status: Chronic (6) Chronic anticoagulation Code(s): Z79.01 - M[facility] (CURRENT) USE OF ANTICOAGULANTS Status: Chronic (7) Dyslipidemia Code(s): E78.5 - HYPERLIPIDEMIA, UNSPECIFIED Status: Chronic (8) Hypertension Code(s): I10 - ESSENTIAL (PRIMARY) HYPERTENSION Status: Chronic (9) Hypothyroidism Code(s): E03.9 - HYPOTHYROIDISM, UNSPECIFIED Status: Chronic (10) PAD (peripheral artery disease) Code(s): I73.9 - PERIPHERAL VASCULAR DISEASE, UNSPECIFIED Status: Chronic (11) Paroxysmal atrial fibrillation Code(s): I48.0 - PAROXYSMAL ATRIAL FIBRILLATION Status: Chronic - Plan Discussed with GI. No indication for endoscopy now. No evidence of overt bleeding. Retic count in am. Continue steroids. Continue PPI. Still on amio gtt. Appreciate Cards input. Challenging case given the potential need for Dobutrex and the hyperthyroid.
[2019-10-02 04:50] LABS: Reticulocyte Count 1.9 % (0.5-1.5)
[2019-10-02 05:26] LABS: Anisocytosis SLIGHT = 6-15 cells (100X) (0-5/hpf); Band 3 % (5-11); Elliptocytes SLIGHT = 2-5 cells (100X) (0-1/hpf); Hemoglobin 8.3 g/dL (14.0-18.0); Lymphocytes 10 % (21-51); MDiff Complete? YES; Mean Corpuscular HGB CONC 33.5 g/dL (32.0-36.0); Mean Corpuscular Volume 86.7 fL (78.0-98.0); Mean Platelet Volume 8.1 fL (7.4-10.4); Monocytes 4 % (0-10); Neutrophil 83 % (42-75); Nucleated RBC 1 % (0); Platelet Count 514 thou/uL (130-400); Platelet Morphology Comment Appears Increased; RBC Distribution Width 18.2 % (11.5-14.5); Red Blood Cell (RBC) Count 2.87 mill/uL (4.70-6.10); White Blood Cell (WBC) Count 8.9 thou/uL (4.8-10.8)
[2019-10-02] MEDS: Levothyroxine Sodium 100 MCG TAB PO SCH (05:26)
--- NOTE | 2019-10-02 08:46 | CON ---
DATE OF CONSULTATION: 10/01/2019 PRIMARY SOLUTION DESIGNER: Abhay Batres MD REASON FOR CONSULTATION: Atrial fibrillation. HISTORY OF PRESENT ILLNESS: Mr. Patel is a 69-year-old gentleman known to our practice for history of ischemic cardiomyopathy and severe coronary artery disease as well as persistent atrial fibrillation. He has undergone pulmonary venous antral isolation in June 2017. He has a single-chamber ICD that was implanted in 2013, primary prevention given his extensive cardiomyopathy with severely reduced ejection fraction. He was recently seen in our practice, reporting NYHA functional class III symptoms with severe shortness of breath with minimal activity. An echocardiogram in June 2019 revealed an LVEF estimated at 15% to 20%. His EKG showed atypical left bundle, very minimally prolonged at 125 milliseconds. His device interrogation showed adequate function, minimal RV pacing of 1%, but there was a single VF zone ventricular tachycardia event, successfully terminated with ATP therapies. CorVue suggested worsening fluid overload. He was being arranged for an outpatient upgrade to a biventricular ICD. Mr. Patel presented to [facility] on September 28 in the afternoon. He was experiencing a significant worsening in his shortness of breath over the past few days. He is found to be in acute renal failure with a creatinine of 1.8 and hyperkalemic with potassium 6.5. BNP was slightly elevated at 636. Since that time, his creatinine has normalized and is now below 1, his potassium is trending down approximately 5.5. He was given IV Lasix and is gently being diuresed. He is also found to be profoundly anemic with a hemoglobin of 7.1, and generally his hemoglobin trends have been between 9 and 10 historically. He was given a blood transfusion with minimal improvement to 7.8, and today reveals hemoglobin of 7.1 once again. He is currently being transfused an additional unit of PRBCs. GI has been consulted given his anemia and concern for GI bleed. His anticoagulation with Eliquis and aspirin has been stopped, GI is considering an upper endoscopy if iron studies suggest iron-deficiency anemia, but would wish to refrain from lower endoscopy given his extensive cardiomyopathy. He also had an episode of atrial fibrillation and was started on amiodarone. He converted back to sinus rhythm after approximately 3 hours of atrial fibrillation and has been in sinus rhythm since that time. Mr. Patel denies any heart racing, palpitations, chest pain, pressure, syncope, near syncope, stroke, or stroke-like symptoms. He does endorse significant shortness of breath with minimal activity, also positional when he is resting recumbent. He denies peripheral edema. He denies any bloody stools. He denies dark tarry stools. REVIEW OF SYSTEMS: 12-point review of systems is negative except that listed above in HPI. PAST MEDICAL HISTORY: 1. Extensive coronary artery disease with multiple myocardial infarctions in the past. 2. Ischemic cardiomyopathy, LVEF 15% to 20% by echo in June 2019. 3. Peripheral arterial disease. 4. [employer] single-chamber ICD, Haleigh ROSE implanted 05/10/2014. 5. Congestive heart failure. 6. Hypertension. 7. AV tian reentrant tachycardia, status post ablation in 2011. 8. Persistent atrial fibrillation, status post PVAI on 06/24/2017. 9. Hypothyroidism. ALLERGIES: NO KNOWN DRUG ALLERGIES. HOME MEDICATIONS: Include: 1. Zaroxolyn 2.5 mg p.o. p.r.n. 2. Allopurinol 300 mg p.o. daily. 3. Indomethacin 50 mg p.o. b.i.d. p.r.n. 4. Prednisone 10 mg daily. 5. Aspirin daily. 6. Eliquis 5 mg p.o. b.i.d. 7. Carvedilol 3.125 mg p.o. b.i.d. 8. Entresto 24/26 mg b.i.d. 9. Levothyroxine 150 mcg p.o. daily. 10. Lasix 20 mg p.o. b.i.d. 11. Digoxin 125 mcg daily. FAMILY HISTORY: Noncontributory. SOCIAL HISTORY: Drinks socially. High stress levels. Strong family support. PHYSICAL EXAMINATION: VITAL SIGNS: Temperature 98.3 degrees Fahrenheit, pulse 78, blood pressure 93/ 52, respirations 20, oxygen is 98% on 1 L per minute of oxygen via nasal cannula. GENERAL: The patient is alert and oriented. His speech is clear. Affect is appropriate. He is in no apparent distress. Resting comfortably with the head of bed slightly elevated approximately 20 degrees. He is severely underweight. NECK: Supple without jugular venous distention. There is no lymphadenopathy. His trachea is midline. LUNGS: Clear to auscultation with good bilateral excursion. There are no wheezes, crackles, or rhonchi appreciated. CARDIAC: His heart rate is regularly regular. There is a left precordial device. Subcutaneous incision is long healed. There is no evidence of erosion, induration, redness, or warmth. ABDOMEN: Soft and nontender. Gaunt. There are positive bowel sounds throughout. EXTREMITIES: Warm and dry to touch, well perfused without clubbing, cyanosis, or edema. IMAGING DATA: Telemetry and EKGs currently show sinus rhythm with controlled ventricular rates. He had atrial fibrillation for approximately 3 to 3-1/2 hours that terminated with the addition of amiodarone drip. LABORATORY DATA: Hemoglobin 7.1, hematocrit 20.7, WBC 9.9, platelet count is 493. Sodium 134, potassium 5.0 (6.5 on admission), creatinine 0.98 (1.8 on admission) , magnesium 1.8. AST 11, ALT 24, alkaline phosphatase 162. TSH is 0.0039, free T4 of 1.24. Chest CT on 09/30/2019, no suspicious pulmonary mass, findings of pulmonary fibrosis early stage with bibasilar honeycombing. No evidence for pneumonia. Interval resolution of ground-glass opacities and pleural effusions. IMPRESSION: 1. Acute on chronic systolic congestive heart failure and ischemic cardiomyopathy. 2. Single-chamber ICD with recent interrogation revealing adequate function and no significant arrhythmias. 3. History of ventricular tachycardia responsive to ATP therapies. 4. Persistent atrial fibrillation with prior ablation. Recent recurrence in the setting of acute anemia, being treated with amiodarone successfully maintaining sinus rhythm. 5. Acute symptomatic anemia. 6. Hypotension. 7. Hyperkalemia, resolving. 8. Acute kidney injury, resolved. 9. Atypical left bundle branch block, slightly prolonged QRS, recently documented at 125 milliseconds. 10. Severe coronary artery disease. 11. Hyperthyroidism with overly suppressed TSH. 12. Chest CT findings suggestive of pulmonary fibrosis. PLAN AND RECOMMENDATIONS: Unfortunately, Mr. Patel is experiencing acute profound anemia. He is undergoing blood transfusions and his anticoagulation has been stopped. He is undergoing GI evaluation and there is some consideration for an upper endoscopy pending iron study results. He has had an episode of atrial fibrillation and was started on amiodarone drip, which successfully and quickly terminated his atrial arrhythmias restoring sinus rhythm. He has been maintaining sinus rhythm since that time. Mr. Patel struggles with chronic shortness of breath, but has recently had worsening symptoms. There was some consideration that his atypical left bundle branch block may be a contributing factor with LV dyssynchrony. Recent CT was suspicious for pulmonary fibrosis. Mr. Patel is undergoing evaluation by multiple specialties for his ongoing medical issues. I agree with the decision for the amiodarone for suppression of his atrial arrhythmias as he cannot tolerate oral anticoagulation currently although it is not an ideal option with his thyroid issues and possible pulmonary fibrosis. If he continues to struggle with anemia, he is at a higher chance of having recurrent arrhythmia issues. This places him at substantial risk for potential stroke while not anticoagulated making AF suppression necessary. I am interested to see Pulmonology's interpretation of his recent CT scan. This may be more of a contributing factor to his increasing shortness of breath over the past year than his atypical LBBB. We cannot use class 1C antiarrhythmic agents given his extensive coronary artery disease. Some class III medications are viable options. Multaq not an option with his decompensated HF. Currently, Tikosyn is under national shortages and is not readily available. If his kidney function remains stable, we consider trying sotalol in the future but is known to be less efficacious than amiodarone. nursing home, we could consider left atrial appendage closure with a Watchman, but this would also require at least 6 weeks of anticoagulation surrounding at the time of implant. Thank you for allowing me to participate in the care of this patient. We will continue to follow. This consultation was performed with coordination and direction of Dr. Argueta. Job ID: [id number] [facility]
[2019-10-02] MEDS: Pantoprazole 40 MG VIAL IVP SCH ×2 (08:56→20:25)
[2019-10-02] MEDS: Digoxin 0.125 MG TAB PO SCH (08:56)
[2019-10-02] MEDS: Furosemide 20 MG TAB PO SCH ×2 (08:56→20:24)
[2019-10-02] MEDS: Carvedilol 3.125 MG TAB PO SCH ×2 (08:56→17:24)
[2019-10-02] MEDS: Allopurinol 300 MG TAB PO SCH (08:56)
[2019-10-02] MEDS: predniSONE 20 MG TAB PO SCH (08:56)
--- NOTE | 2019-10-02 09:31 | PRG ---
DATE OF SERVICE: 10/01/2019 SUBJECTIVE: Mr. Patel has had no bowel movement today. He has no abdominal pain. He does not have a lot of appetite, but he is eating his solid diet. OBJECTIVE: VITAL SIGNS: Temperature 98.4, pulse 109, blood pressure 158/82. GENERAL: He is in no acute distress. Alert and oriented x3. He is cachectic. LUNGS: Clear to auscultation bilaterally. HEART: Irregular. ABDOMEN: Soft, nontender, and nondistended. Bowel sounds are present. EXTREMITIES: No lower extremity edema. LABORATORY DATA: White blood cell count 9.9, hemoglobin 7.1, platelets 493. Creatinine 0.98. IMPRESSION: 1. Anemia. His iron studies are most consistent with anemia of chronic disease with a ferritin of over 300 and a TIBC of 188. He has had a more rapid drop in his hemoglobin on anticoagulation; however, there is no evidence of overt bleeding. He has brown stools, and he was Hemoccult negative. Given that he has been on aspirin and steroids, peptic ulcer is still possible, and I would cover him empirically with proton-pump inhibitor. He had a negative colonoscopy 4 years ago and a negative esophagogastroduodenoscopy 2 years ago. 2. Hyperthyroidism. 3. Cardiomyopathy. 4. Interstitial lung disease. RECOMMENDATIONS: 1. Transfuse as necessary. 2. Anticoagulation is held for now. 3. Proton-pump inhibitor empirically. 4. Endoscopy could be considered if he shows signs of overt bleeding. For now, he is a poor anesthesia candidate, and he has no signs of overt GI bleeding despite a significant drop in his hemoglobin. 5. Follow up reticulocyte count. 6. I will sign off. Please call if GI can be of assistance. Job ID: [id number]
[2019-10-02 11:52] LABS: Anion Gap 10 mmol/L (10-20); BUN (Urea Nitrogen) 26 mg/dL (8.4-25.7); Calc. Creatinine Clearance 56 mL/min (70-130); Calcium 8.7 mg/dL (7.8-10.44); Carbon Dioxide 28 mmol/L (23-31); Chloride 99 mmol/L (98-107); Estimated GFR-MDRD Greater than 90; Glucose 171 mg/dL (80-115); Potassium 3.6 mmol/L (3.5-5.1); Sodium 133 mmol/L (136-145)
[2019-10-02 11:54] VITALS: BMI 13.8
--- NOTE | 2019-10-02 13:36 | PQF ---
DATE: 10-02-19 ATTN: DR. TYRON GUERRA Please exercise your independent, professional judgment in responding to the clarification form. Clinical indicators are provided on the bottom of this form for your review Please check appropriate box(s): Conflicting documentation was noted in the Medical Record, please clarify if patient is being treated/monitored for: [ ] CHRONIC SYSTOLIC CHF [ x ] ACUTE ON CHRONIC SYSTOLIC CONGESTIVE HEART FAILURE [ ] Other diagnosis [ ] Unable to determine In addition, please specify: Present on Admission (POA): [ x ] Yes [ ] No [ ] Unable to determine For continuity of documentation, please document condition throughout progress notes and discharge summary. Thank You. CLINICAL INDICATORS - SIGNS / SYMPTOMS/ LABS / RESULTS AND LOCATION IN EMR: ER DX 09-29-19: HYPERKALEMIA, CHF EXACERBATION H&P: 09-29-19: CONGESTIVE HEART FAILURE? ACUTE, REVISION?? PN DR. GUERRA 10-01-19: CHRONIC SYSTOLIC CHF CONSULT NOTE WOODY LINDSAY NP 10-01-19: ACUTE ON CHRONIC SYSTOLIC CONGESTIVE HEART FAILURE AND ISCHEMIC CARDIOMYOPATHY. BNP: 09-29-19: 636.3 09-30-19: 923.4 RISK FACTORS / RESULTS AND LOCATION IN EMR: ER NOTES 09-29-19: SOB, HX A FIB, PA, HYPOTHYROIDISM, DEFIBRILLATOR, AICD, ER DX: HYPERKALEMIA, CHF EXACERBATION TREATMENT / RESULTS AND LOCATION IN EMR: ER DX: FUROSEMIDE IV, MAR: 09-30-19: LASIX PO (This form is maintained as a part of the permanent medical record) 2014 [employer]. All Rights Reserved JORGE [email or web address] Office: [phone] [facility]ITALRem[facility]
--- NOTE | 2019-10-02 15:29 | PDOC.EP ---
- Subjective Date: 10/02/19 Time: 15:27 Interval History: follow up for atrial fibrillation and OAC management Feels weak. No evident bleeding. - Review of Systems Constitutional: reports: weakness. denies: chills, fever, sweats Respiratory: reports: shortness of breath. denies: cough, dry, hemoptysis, pleuritic pain Cardiology: denies: chest pain, edema, heart racing, light headedness, orthopnea Gastrointestinal: denies: abdominal pain, constipation, diarrhea Musculoskeletal: reports: unstable gait. denies: falls, neck pain - Objective Allergies/Adverse Reactions: Allergies Allergy/AdvReac Type Severity Reaction Status Date / Time No Known Allergies Allergy Verified 12/29/18 22:22 Current Medications Allopurinol (Zyloprim) 300 mg PO DAILY [facility] Last Admin: 10/02/19 08:56 Dose: 300 mg [facility] ([facility]) [facility] Last Admin: 10/02/19 08:56 Dose: Not Given Digoxin (Lanoxin) 0.125 mg PO [facility] Last Admin: 10/02/19 08:56 Dose: 0.125 mg Furosemide (Lasix) 20 mg PO BID [facility] Last Admin: 10/02/19 08:56 Dose: 20 mg Levothyroxine Sodium (Synthroid) 100 mcg PO 0600 [facility] Last Admin: 10/02/19 05:26 Dose: 100 mcg Metolazone (Zaroxolyn) 2.5 mg PO Tu[facility]@0830 [facility] Last Admin: 10/01/19 09:05 Dose: 2.5 mg Pantoprazole Sodium (Protonix) 40 mg IVP Q12HR [facility] Last Admin: 10/02/19 08:56 Dose: 40 mg Prednisone (Prednisone) 20 mg PO [facility] Last Admin: 10/02/19 08:56 Dose: 20 mg Sodium Chloride (Flush - Normal Saline) 10 ml IVF Q12HR [facility] Last Admin: 10/02/19 08:57 Dose: 10 ml Sodium Chloride (Flush - Normal Saline) 10 ml IVF PRN PRN PRN Reason: Saline Flush Last Admin: 10/01/19 20:40 Dose: 10 ml Vital Signs & Weight: Vital Signs Temp Pulse Resp BP Pulse Ox 10/02/19 15:13 97.7 F 86 16 100/64 100 10/02/19 11:40 98.0 F 64 22 H 97/60 100 10/02/19 08:56 76 10/02/19 07:29 100 10/02/19 07:18 98.0 F 80 18 92/58 L 100 Admit Weight 108 lb 7 oz Weight 101 lb 11.2 oz I/O: I/O 10/01/19 10/02/19 10/03/19 06:59 06:59 06:59 Intake Total 403.4 1550 Output Total 1425 2325 Balance -1021.6 -775 - Quality Measures Condition: Atrial Fibrillation/Flutter (hx or current) - Medication Contraindications No Anticoagulant reason: Anticoagulant not tolerated (anemia) - Physical Exam General: alert & oriented x3, no apparent distress, cachectic, speech clear, affect appropriate HEENT: mucus membranes moist, normocephaly Neck: supple neck, midline trachea, no JVD/HJR Cardiology: regular rate and rhythm Lungs: no wheezes, no rhonchi, bibasilar rales (fine) Neurology: cranial nerve 2-12 intact, sensory function intact Abdomen: unremarkable, no pulsations/bruits Extremities: dry, strong pulses, warm - Chadsvasc Risk factors Congestive heart failure: 1 Age 65-74: 1 Vascular disease: 1 Risk Score: 3 - Labs Result Diagrams: 10/02/19 04:17 10/02/19 11:11 - EKG Interpretation EKG Method: Telemetry EKG shows: Sinus rhythm - Device Device: single, defibrillator Device Result: [facility] - Assessment/Plan Assessment/Plan: Impression: 1. A/C Systolic congestive heart failure with ischemic cardiomyopathy 2. Single chamber ICD - nml function 3. PVCs -recent hx of ATP responsive VT 4. Persistent atrial fibrillation - Cannot be on OAC right now due to acute anemia 5. Acute anemia -high suspicion of bleeding -possibly ACD -s/p multiple (3?) units transfused 6. Hypotension 7. Hyperkalemia 8. LUIS DANIEL -resolved 1.8-->0.8 9. Atypical left bundle branch block - up to 125msec. appear wider today. EKG pending 10. Severe CAD 11. Hyperthyroidism - TSH 0.0039. T4 normal. T3 not checked. 12. Cachexia Plan/Recommendations: Amiodarone gtt was discontinued due to concern for hyperthyroidism. T3 has not yet been checked. If normal, we could continue amiodarone as this would suggest an inaccurate low TSH value. Now that his kidney function has normalized his only other AAD option is sotalol. He had ~3hr episode of AF this AM. Without the support of AAD he will likely have longer AF episodes, which is concerning without OAC. Starting Sotalol 40mg BID. Baseline EKG ordered (QTc 392msec on admit). He also has close follow up with Dr Canas on Saturday. Plan to proceed with upgrade to BiV ICD as OP Saturday as he may eventually require an AV node ablation in the future with his extremely limited AAD options and persistent atrial arrhythmias. GI feels this anemia is related to chronic disease and as no evidence of acute bleed is yet to be seen. Could resume OAC if GI gives clearance but would if resumed, I would prefer patient be monitored for 24hrs incase he is bleeding. 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 10/01 @1600 QTc 447msec pre sotalol.
[2019-10-02 16:10] LABS: Free T4 (Free Thyroxine) 1.44 ng/dL (0.70-1.48); Thyroid Stimulating Hormone 0.0026 uIU/mL (0.35-4.94)
--- NOTE | 2019-10-02 16:36 | PDOC.HOSPP ---
- Subjective Encounter Date: 10/02/19 Subjective: Feeling better. No specific complaints. - Objective Vital Signs & Weight: Vital Signs (12 hours) Temp Pulse Resp BP Pulse Ox 10/02/19 15:13 97.7 F 86 16 100/64 100 10/02/19 11:40 98.0 F 64 22 H 97/60 100 10/02/19 08:56 76 10/02/19 07:29 100 10/02/19 07:18 98.0 F 80 18 92/58 L 100 Weight Admit Weight 108 lb 7 oz Weight 101 lb 11.2 oz I&O: 10/01/19 10/02/19 10/03/19 06:59 06:59 06:59 Intake Total 403.4 1550 Output Total 1425 2325 Balance -1021.6 -775 Result Diagrams: 10/02/19 04:17 10/02/19 11:11 Hospitalist ROS - Medication Medications: Active Medications Generic Name Dose Route Start Last Admin Trade Name Freq PRN Reason Stop Dose Admin Allopurinol 300 mg 10/01/19 09:00 10/02/19 08:56 Zyloprim PO 300 mg DAILY DEJUAN Administration Carvedilol 3.125 mg 09/30/19 17:00 10/02/19 08:56 Coreg PO Not Given BID-WM DEJUAN Digoxin 0.125 mg 10/01/19 09:00 10/02/19 08:56 Lanoxin PO 0.125 mg QAM DEJUAN Administration Furosemide 20 mg 09/30/19 21:00 10/02/19 08:56 Lasix PO 20 mg BID DEJUAN Administration Levothyroxine Sodium 100 mcg 10/01/19 06:00 10/02/19 05:26 Synthroid PO 100 mcg 0600 DEJUAN Administration Metolazone 2.5 mg 10/01/19 08:30 10/01/19 09:05 Zaroxolyn PO 2.5 mg TuTh@0830 DEJUAN Administration Pantoprazole Sodium 40 mg 09/30/19 09:00 10/02/19 08:56 Protonix IVP 40 mg Q12HR DEJUAN Administration Prednisone 20 mg 10/02/19 08:00 10/02/19 08:56 Prednisone PO 20 mg QAM-WM DEJUAN Administration Sodium Chloride 10 ml 09/30/19 21:00 10/02/19 08:57 Flush - Normal Saline IVF 10 ml Q12HR DEJUAN Administration Sodium Chloride 10 ml 09/30/19 13:02 10/01/19 20:40 Flush - Normal Saline IVF 10 ml PRN PRN Administration Saline Flush - Exam General Appearance: NAD, awake alert General - other findings: cachexia, less pallor Heart: RRR, no murmur, no gallops, no rubs, normal peripheral pulses Respiratory: rales (Mild, bibasilar, fine) Gastrointestinal: soft, non-tender, non-distended, normal bowel sounds, no palpable masses, no hepatomegaly, no splenomegaly, no bruit Extremities: no cyanosis, no clubbing, no edema Musculoskeletal: generalized weakness Psychiatric: normal affect, normal behavior, A&O x 3 Hosp A/P (1) Symptomatic anemia Code(s): D64.9 - ANEMIA, UNSPECIFIED Status: Acute (2) Chronic systolic CHF (congestive heart failure), NYHA class 2 Code(s): I50.22 - CHRONIC SYSTOLIC (CONGESTIVE) HEART FAILURE Status: Chronic (3) Protein-calorie malnutrition, severe Code(s): E43 - UNSPECIFIED SEVERE PROTEIN-CALORIE MALNUTRITION Status: Chronic (4) AICD (automatic cardioverter/defibrillator) present Code(s): Z95.810 - PRESENCE OF AUTOMATIC (IMPLANTABLE) CARDIAC DEFIBRILLATOR Status: Chronic (5) CAD (coronary artery disease) Code(s): I25.10 - ATHSCL HEART DISEASE OF [place] CORONARY ARTERY W/O ANG PCTRS Status: Chronic (6) Chronic anticoagulation Code(s): Z79.01 - GROUP HOME (CURRENT) USE OF ANTICOAGULANTS Status: Chronic (7) Dyslipidemia Code(s): E78.5 - HYPERLIPIDEMIA, UNSPECIFIED Status: Chronic (8) Hypertension Code(s): I10 - ESSENTIAL (PRIMARY) HYPERTENSION Status: Chronic (9) Hypothyroidism Code(s): E03.9 - HYPOTHYROIDISM, UNSPECIFIED Status: Chronic (10) PAD (peripheral artery disease) Code(s): I73.9 - PERIPHERAL VASCULAR DISEASE, UNSPECIFIED Status: Chronic (11) Paroxysmal atrial fibrillation Code(s): I48.0 - PAROXYSMAL ATRIAL FIBRILLATION Status: Chronic - Plan No indication for endoscopy now. No evidence of overt bleeding. Iron studies are normal. Retic count is elevated, but relatively low for the setting. Likely some anemia of chronic dz. Continue steroids. Continue PPI. Amio off. Had a brief run of a-fib this morning that spont resolved. Appreciate Cards input. Discussed with EP. Will start Sotalol and monitor over night. May be able to DC in am. Will get BiV upgrade as OP next week. Renal function is back to normal. Lower dose of synthroid.
[2019-10-02 17:01] LABS: Anion Gap 14 mmol/L (10-20); BUN (Urea Nitrogen) 29 mg/dL (8.4-25.7); Calc. Creatinine Clearance 54 mL/min (70-130); Calcium 8.9 mg/dL (7.8-10.44); Carbon Dioxide 23 mmol/L (23-31); Chloride 100 mmol/L (98-107); Estimated GFR-MDRD 90; Glucose 155 mg/dL (80-115); Potassium 4.4 mmol/L (3.5-5.1); Sodium 133 mmol/L (136-145)
[2019-10-02 17:13] LABS: Hemoglobin 9.2 g/dL (14.0-18.0); Hypochromia SLIGHT = 6-15 cells (100X) (0-5/hpf); Lymphocytes 7 % (21-51); MDiff Complete? YES; Mean Corpuscular HGB CONC 31.3 g/dL (32.0-36.0); Mean Corpuscular Hemoglobin 27.6 pg (27.0-31.0); Mean Platelet Volume 8.8 fL (7.4-10.4); Monocytes 15 % (0-10); Neutrophil 78 % (42-75); Ovalocytes SLIGHT = 2-5 cells (100X) (0-1/hpf); Platelet Count 555 thou/uL (130-400); Platelet Morphology Comment Appears Increased; Polychromasia SLIGHT = 2-3 cells (100X) (0-2/hpf); RBC Distribution Width 18.6 % (11.5-14.5); Red Blood Cell (RBC) Count 3.33 mill/uL (4.70-6.10); Schistocytes SLIGHT = 2-5 cells (100X) (0-1/hpf); Tear Drops SLIGHT = 2-5 cells (100X) (0-1/hpf); White Blood Cell (WBC) Count 9.4 thou/uL (4.8-10.8)
--- NOTE | 2019-10-02 18:51 | PRG ---
DATE OF SERVICE: 10/02/2019 SUBJECTIVE: Mr. Patel has no new complaints. He actually has no appetite today. He is eating. OBJECTIVE: VITAL SIGNS: He is afebrile. Heart rate is 86, respiratory rate is 16, oximetry is 100% on room air, blood pressure 100/64. LUNGS: Remarkable for crackles at his lung bases. HEART: Regular rhythm. ABDOMEN: Soft. LABORATORY DATA: His hemoglobin today was 8.3, 7.1 yesterday, received 1 unit of blood yesterday . His anticoagulants are being held. IMPRESSION: 1. Anorexia prior to the institution of steroids. He has gained some weight with the prednisone. 2. Ischemic cardiomyopathy with a defibrillator in place. 3. Atrial fibrillation with contraindication to anticoagulants. 4. Anemia, which is likely blood loss combined with anemia of chronic disease. He had a significant drop in hemoglobin, and he was admitted after a unit of blood was transfused. Overall, he appears to be stable at this time. I met with him and his and answered all their questions. Job ID: [id number]
[2019-10-02] MEDS: Sotalol HCl 80 MG TAB PO SCH (20:24)
[2019-10-02] MEDS: Apixaban 5 MG TAB PO SCH (20:25)
[2019-10-03 04:57] LABS: Hemoglobin 8.5 g/dL (14.0-18.0); Platelet Count 512 thou/uL (130-400)
[2019-10-03] MEDS: Levothyroxine Sodium 100 MCG TAB PO SCH (06:33)
[2019-10-03] MEDS: predniSONE 20 MG TAB PO SCH (09:08)
[2019-10-03] MEDS: Allopurinol 300 MG TAB PO SCH (09:08)
[2019-10-03] MEDS: Apixaban 5 MG TAB PO SCH ×2 (09:08→22:34)
[2019-10-03] MEDS: Digoxin 0.125 MG TAB PO SCH (09:09)
[2019-10-03] MEDS: Sotalol HCl 80 MG TAB PO SCH ×2 (09:09→22:34)
[2019-10-03] MEDS: Furosemide 20 MG TAB PO SCH ×2 (09:09→22:34)
[2019-10-03] MEDS: Pantoprazole 40 MG VIAL IVP SCH ×2 (09:09→22:36)
--- NOTE | 2019-10-03 09:52 | PDOC.CPN ---
- Subjective Date: 10/02/19 Time: 13:15 Interval history: Still SOB, but stable. - Review of Systems General: denies: fever/chills, weight/appetite/sleep changes, night sweats, fatigue Respiratory: reports: cough, shortness of breath. denies: congestion, exercise intolerance Cardiovascular: denies: chest pain, palpitation, edema, paroxysmal nocturnal dyspnea, orthopnea Gastrointestinal: denies: nausea, vomiting, diarrhea, constipation, abd pain, GI bleeding Musculoskeletal: denies: pain, tenderness, stiffness, swelling, arthritis/ arthralgias Neurological: denies: numbness, syncope, seizure, weakness - Objective Allergies/Adverse Reactions: Allergies Allergy/AdvReac Type Severity Reaction Status Date / Time No Known Allergies Allergy Verified 12/29/18 22:22 Visit Medications: Current Medications Allopurinol (Zyloprim) 300 mg PO DAILY [facility] Last Admin: 10/03/19 09:08 Dose: 300 mg Apixaban (Eliquis) 5 mg PO BID [facility] Last Admin: 10/03/19 09:08 Dose: 5 mg Digoxin (Lanoxin) 0.125 mg PO QAM [facility] Last Admin: 10/03/19 09:09 Dose: 0.125 mg Furosemide (Lasix) 20 mg PO BID [facility] Last Admin: 10/03/19 09:09 Dose: 20 mg Levothyroxine Sodium (Synthroid) 100 mcg PO 0600 [facility] Last Admin: 10/03/19 06:33 Dose: 100 mcg Metolazone (Zaroxolyn) 2.5 mg PO TuTh@0830 [facility] Last Admin: 10/01/19 09:05 Dose: 2.5 mg Pantoprazole Sodium (Protonix) 40 mg IVP Q12HR [facility] Last Admin: 10/03/19 09:09 Dose: 40 mg Prednisone (Prednisone) 20 mg PO QAM-WM [facility] Last Admin: 10/03/19 09:08 Dose: 20 mg Sodium Chloride (Flush - Normal Saline) 10 ml IVF Q12HR [facility] Last Admin: 10/03/19 09:09 Dose: 10 ml Sodium Chloride (Flush - Normal Saline) 10 ml IVF PRN PRN PRN Reason: Saline Flush Last Admin: 10/01/19 20:40 Dose: 10 ml Sotalol HCl (Betapace) 40 mg PO BID [facility] Last Admin: 10/03/19 09:09 Dose: 40 mg Vital Signs & Weight: Vital Signs Temp Pulse Resp BP Pulse Ox 10/03/19 08:45 97.4 F L 81 16 102/58 L 99 10/03/19 04:58 97.7 F 76 15 121/66 96 10/02/19 23:35 97.9 F 69 18 112/66 100 Admit Weight 108 lb 7 oz Weight 101 lb 1.6 oz - Medication Contraindications No Anticoagulant reason: Anticoagulant not tolerated (anemia) - Physical Exam General: alert & oriented x3, appears well, cachectic HEENT: mucus membranes moist Cardiac: regular rate and rhythm Lungs: clear to auscultation Neuro: grossly intact Abdomen: unremarkable Extremities: no cyanosis Skin: clear Musculoskeletal: normal range of motion - Labs Result Diagrams: 10/03/19 04:44 10/03/19 04:44 Troponin/CKMB CK-MB (CK-2) 2.6 ng/mL (0-6.6) 09/29/19 13:55 Troponin I 0.053 ng/mL (< 0.028) H 09/29/19 19:55 - Assessment/Plan Assessment/Plan: 1. Acute on chronic CHF 2. Acute anemia 3. Pulmonary Fibrosis 4. Cardiac cachexia 5. AFib Discussed with Dr. Moore and Dr. Batres. Cardiac status stable. No plan for EGD. Discussed outpatient iron therapy and close monitoring of H/H. Continue holding ACT for now. Plan for AVJ-RFA and [employer] device. Will f/u as outpatient in 1-2 weeks.
--- NOTE | 2019-10-03 09:54 | PDOC.CPN ---
- Subjective Date: 10/03/19 Time: 09:50 Interval history: Patient placed on sotalol by EP yesterday for paroxysmal AF in light of Amio being stopped and off ACT. No EKG this AM. In SR overnight with PVCs - Review of Systems General: denies: fever/chills, weight/appetite/sleep changes, night sweats, fatigue Respiratory: reports: cough, shortness of breath, exercise intolerance Cardiovascular: denies: chest pain, palpitation, edema, paroxysmal nocturnal dyspnea, orthopnea Gastrointestinal: denies: nausea, vomiting, diarrhea, constipation, abd pain, GI bleeding Musculoskeletal: denies: pain, tenderness, stiffness, swelling, arthritis/ arthralgias Neurological: denies: numbness, syncope, seizure, weakness - Objective Allergies/Adverse Reactions: Allergies Allergy/AdvReac Type Severity Reaction Status Date / Time No Known Allergies Allergy Verified 12/29/18 22:22 Visit Medications: Current Medications Allopurinol (Zyloprim) 300 mg PO DAILY [facility] Last Admin: 10/03/19 09:08 Dose: 300 mg Apixaban (Eliquis) 5 mg PO BID [facility] Last Admin: 10/03/19 09:08 Dose: 5 mg [facility]oxin (Lan[facility]) [facility] Admin: 10/03/19 09:09 Dose: 0.125 mg Furosemide (Lasix) 20 mg PO BID [facility] Last Admin: 10/03/19 09:09 Dose: 20 mg Levothyroxine Sodium (Synthroid) 100 mcg PO 0600 [facility] Last Admin: 10/03/19 06:33 Dose: 100 mcg Metolazone (Zaroxolyn) 2.5 mg PO [facility]@0830 [facility] Last Admin: 10/01/19 09:05 Dose: 2.5 mg Pantoprazole Sodium (Protonix) 40 mg IVP Q12HR [facility] Last Admin: 10/03/19 09:09 Dose: 40 mg Prednisone (Prednisone) 20 mg PO QAM-[facility] Last Admin: 10/03/19 09:08 Dose: 20 mg Sodium Chloride (Flush - Normal Saline) 10 ml IVF Q12HR [facility] Last Admin: 10/03/19 09:09 Dose: 10 ml Sodium Chloride (Flush - Normal Saline) 10 ml IVF PRN PRN PRN Reason: Saline Flush Last Admin: 10/01/19 20:40 Dose: 10 ml Sotalol HCl (Betapace) 40 mg PO BID DEJUAN Last Admin: 10/03/19 09:09 Dose: 40 mg Vital Signs & Weight: Vital Signs Temp Pulse Resp BP Pulse Ox 10/03/19 08:45 97.4 F L 81 16 102/58 L 99 10/03/19 04:58 97.7 F 76 15 121/66 96 10/02/19 23:35 97.9 F 69 18 112/66 100 Admit Weight 108 lb 7 oz Weight 101 lb 1.6 oz - Medication Contraindications No Anticoagulant reason: Anticoagulant not tolerated (anemia) - Physical Exam General: alert & oriented x3, cachectic HEENT: mucus membranes moist Neck: supple neck Cardiac: regular rate and rhythm Lungs: decreased breath sounds Neuro: grossly intact Abdomen: unremarkable Extremities: no cyanosis Skin: clear - Labs Result Diagrams: 10/03/19 04:44 10/03/19 04:44 Troponin/CKMB CK-MB (CK-2) 2.6 ng/mL (0-6.6) 09/29/19 13:55 Troponin I 0.053 ng/mL (< 0.028) H 09/29/19 19:55 - Assessment/Plan Assessment/Plan: 1. Paroxysmal AF 2. Acute anemia 3. Acute on chronic CHF 4. Cardiac cachxia 5. s/p ICD 6. Pulmonary Fibrosis Will repeat 12 lead this AM for QT monitoring. Ok for discharge when appropriate per EP. Abhay Batres MD-Pt seen and exaimned. Agree with above. Started sotalol secondary to hyperthyroidism Inc in thyroid treated by PCP Check QTc in am If <500msec, ok for DC Pt looks much better today than over last fewdays
--- NOTE | 2019-10-03 10:33 | PDOC.EP ---
- Subjective Date: 10/03/19 Time: 10:32 Interval History: follow up for atrial fibrillation. No AF overnight. Having frequent PVCs. Feels ok today. No longer anxious about going home. voices no complaints - Review of Systems Respiratory: reports: cough, shortness of breath. denies: hemoptysis, pleuritic pain, sputum, wheezing Cardiology: denies: chest pain, edema, heart racing, light headedness Gastrointestinal: denies: abdominal pain, constipation, diarrhea Musculoskeletal: denies: unstable gait, falls, neck pain - Objective Allergies/Adverse Reactions: Allergies Allergy/AdvReac Type Severity Reaction Status Date / Time No Known Allergies Allergy Verified 12/29/18 22:22 Current Medications Allopurinol (Zyloprim) 300 mg PO DAILY [facility] Last Admin: 10/03/19 09:08 Dose: 300 mg Apixaban (Eliquis) 5 mg PO BID [facility] Last Admin: 10/03/19 09:08 Dose: 5 mg Digoxin (Lanoxin) 0.125 mg PO [facility] Last Admin: 10/03/19 09:09 Dose: 0.125 mg Furosemide (Lasix) 20 mg PO BID [facility] Last Admin: 10/03/19 09:09 Dose: 20 mg Levothyroxine Sodium (Synthroid) 100 mcg PO 0600 [facility] Last Admin: 10/03/19 06:33 Dose: 100 mcg Metolazone (Zaroxolyn) 2.5 mg PO TuTh@0830 [facility] Last Admin: 10/01/19 09:05 Dose: 2.5 mg Pantoprazole Sodium (Protonix) 40 mg IVP Q12HR [facility] Last Admin: 10/03/19 09:09 Dose: 40 mg Prednisone (Prednisone) 20 mg PO QAM-[facility] Last Admin: 10/03/19 09:08 Dose: 20 mg Sodium Chloride (Flush - Normal Saline) 10 ml IVF Q12HR [facility] Last Admin: 10/03/19 09:09 Dose: 10 ml Sodium Chloride (Flush - Normal Saline) 10 ml IVF PRN PRN PRN Reason: Saline Flush Last Admin: 10/01/19 20:40 Dose: 10 ml Sotalol HCl (Betapace) 40 mg PO BID [facility] Last Admin: 10/03/19 09:09 Dose: 40 mg Vital Signs & Weight: Vital Signs Temp Pulse Resp BP Pulse Ox 10/03/19 08:45 97.4 F L 81 16 102/58 L 99 10/03/19 04:58 97.7 F 76 15 121/66 96 10/02/19 23:35 97.9 F 69 18 112/66 100 Admit Weight 108 lb 7 oz Weight 101 lb 1.6 oz I/O: I/O 10/02/19 10/03/19 10/04/19 06:59 06:59 06:59 Intake Total 1550 Output Total 5625 450 Balance -775 -450 - Quality Measures Condition: Atrial Fibrillation/Flutter (hx or current) CV meds: Eliquis: Yes - Physical Exam General: alert & oriented x3, no apparent distress, cachectic HEENT: mucus membranes moist, normocephaly Neck: supple neck, midline trachea, no lymphadenopathy Cardiology: regular rate and rhythm, PMI nondisplaced Lungs: bibasilar rales. negative: no wheezes, no rhonchi Neurology: cranial nerve 2-12 intact, sensory function intact Abdomen: unremarkable, active bowel sounds, no pulsations/bruits Extremities: dry, strong pulses, warm - Labs Result Diagrams: 10/03/19 04:44 10/03/19 04:44 - EKG Interpretation EKG Method: Telemetry EKG shows: Sinus rhythm - Device Device: single, defibrillator Device Result: [facility] - Assessment/Plan Assessment/Plan: Impression: 1. A/C Systolic congestive heart failure with ischemic cardiomyopathy 2. Single chamber ICD - nml function 3. PVCs and NSVT -recent hx of ATP responsive VT 4. Persistent atrial fibrillation - Cannot be on OAC right now due to acute anemia 5. Acute anemia -determined ACD, now stable -s/p multiple (3?) units transfused 6. Hypotension 7. Hyperkalemia 8. LUIS DANIEL -resolved 1.8-->0.8 9. Atypical left bundle branch block - up to 125msec. 124msec on 10/02 10. Severe CAD 11. Hypothyroidism - TSH 0.0039. T4 normal. on replacement, dose reduced. 12. Cachexia Plan/Recommendations: QTc stable on low dose sotalol. Having frequent PVCs which is not new to him. He also has close follow up with Dr Canas for a procedure on Saturday. Plan to proceed with upgrade to BiV ICD as OP Saturday as he may eventually require an AV node ablation in the future with his extremely limited AAD options and persistent atrial arrhythmias. Eliquis restarted last night, H&H stable this AM. If QTc <500msec after 2nd dose, OK to DC by EP. 10/01 @1600 QTc 447msec pre sotalol. 10/19 @ 2200 QTc 438msec post 1st dose
--- NOTE | 2019-10-03 15:48 | PDOC.HOSPP ---
- Subjective Encounter Date: 10/03/19 Encounter Time: 09:00 Subjective: no overnight events and has no complaints. Sotalol started and apixaban restarted overnight, tolerating well. - Objective Vital Signs & Weight: Vital Signs (12 hours) Temp Pulse Pulse Pulse Resp BP BP 10/03/19 15:06 97.5 F L 72 16 10/03/19 12:20 83 84 94/62 93/59 L 10/03/19 12:05 97.6 F 73 16 10/03/19 08:45 97.4 F L 81 16 10/03/19 04:58 97.7 F 76 15 BP Pulse Ox 10/03/19 15:06 99/59 L 98 10/03/19 12:20 10/03/19 12:05 97/63 98 10/03/19 08:45 102/58 L 99 10/03/19 04:58 121/66 96 Weight Admit Weight 108 lb 7 oz Weight 101 lb 1.6 oz I&O: 10/02/19 10/03/19 10/04/19 06:59 06:59 06:59 Intake Total 1550 Output Total 2325 450 Balance -775 -450 Result Diagrams: 10/03/19 04:44 10/03/19 04:44 Hospitalist ROS - Review of Systems Constitutional: denies: fever, chills, sweats, weakness, malaise, other Respiratory: denies: cough, dry, shortness of breath, hemoptysis, SOB with excertion, pleuritic pain, sputum, wheezing, other Cardiovascular: denies: chest pain, palpitations, orthopnea, paroxysmal noc. dyspnea, edema, light headedness, other Gastrointestinal: denies: nausea, vomiting, abdominal pain, diarrhea, constipation, melena, hematochezia, other Genitourinary: denies: dysuria, frequency, incontinence, hematuria, retention, other - Medication Medications: Active Medications Generic Name Dose Route Start Last Admin Trade Name Freq PRN Reason Stop Dose Admin Allopurinol 300 mg 10/01/19 09:00 10/03/19 09:08 Zyloprim PO 300 mg DAILY DEJUAN Administration Apixaban 5 mg 10/02/19 21:00 10/03/19 09:08 Eliquis PO 5 mg BID DEJUAN Administration Digoxin 0.125 mg 10/01/19 09:00 10/03/19 09:09 Lanoxin PO 0.125 mg QAM DEJUAN Administration Furosemide 20 mg 09/30/19 21:00 10/03/19 09:09 Lasix PO 20 mg BID DEJUAN Administration Levothyroxine Sodium 100 mcg 10/01/19 06:00 10/03/19 06:33 Synthroid PO 100 mcg 0600 DEJUAN Administration Metolazone 2.5 mg 10/01/19 08:30 10/01/19 09:05 Zaroxolyn PO 2.5 mg TuTh@0830 DEJUAN Administration Pantoprazole Sodium 40 mg 09/30/19 09:00 10/03/19 09:09 Protonix IVP 40 mg Q12HR DEJUAN Administration Prednisone 20 mg 10/02/19 08:00 10/03/19 09:08 Prednisone PO 20 mg QAM-WM DEJUAN Administration Sodium Chloride 10 ml 09/30/19 21:00 10/03/19 09:09 Flush - Normal Saline IVF 10 ml Q12HR DEJUAN Administration Sodium Chloride 10 ml 09/30/19 13:02 10/01/19 20:40 Flush - Normal Saline IVF 10 ml PRN PRN Administration Saline Flush Sotalol HCl 40 mg 10/02/19 21:00 10/03/19 09:09 Betapace PO 40 mg BID DEJUAN Administration - Exam General Appearance: NAD, awake alert General - other findings: emaciated Neck: no JVD Heart: irregular Respiratory: no wheezes, no rales, no ronchi Respiratory - other findings: right lower field inspiratory rales Gastrointestinal: soft, non-tender, non-distended, normal bowel sounds Extremities: no edema Psychiatric: normal affect, normal behavior, A&O x 3 Hosp A/P - Plan #Anemia of chronic inflammation HgB 9.2 -> 8.5; within margin of error no reported bleeding, signs or symptoms; FOBT -ve #p. atrial fibrillation restarted apixaban (10/01) stopped amiodarone per cardiology; started sotalol which patient is tolerating well. #hypothyroidism -patient overtreated based on weight and TSH -reduced from 150-> 100mcg -also amiodarone, which reduces effect of levothyroxine, was stoppe Plan: -recheck HgB -If remains stable, QTc not prolonged likely DC 10/03
--- NOTE | 2019-10-03 17:03 | PRG ---
DATE OF SERVICE: 10/03/2019 Mr. Patel was started on sotalol. He has no new complaints today. His appetite is good. Still in sinus rhythm. He appears to be clinically stable from a heart standpoint. His hemoglobin is stable at 8.5 g. Status post 2 units transfused, I believe. His renal function is normalized. We will follow while he remains in hospital. They have apparently upgrade him to a biventricular ICD. I am not sure he is fully anticoagulated given his precipitous drop in hemoglobin by the transfusion when he first came in. He has had no overt bleeding. This should be treated closely. It would be reasonable to either use low-dose or no dose Eliquis at this point in time given that he is in sinus rhythm and has had significant anemia that is felt to possibly be related to GI blood loss. Did have heme negative stool but still came in and dropped his hemoglobin in spite of a transfusion which would lead me to believe that he might be bleeding. Job ID: [id number]
[2019-10-04 04:43] LABS: Hemoglobin 8.5 g/dL (14.0-18.0)
[2019-10-04] MEDS: Levothyroxine Sodium 100 MCG TAB PO SCH (06:27)
[2019-10-04 07:52] VITALS: TEMP 97.4
[2019-10-04] MEDS: predniSONE 20 MG TAB PO SCH (08:48)
[2019-10-04] MEDS: Apixaban 5 MG TAB PO SCH (08:48)
[2019-10-04] MEDS: Allopurinol 300 MG TAB PO SCH (08:48)
[2019-10-04] MEDS: Furosemide 20 MG TAB PO SCH (08:48)
[2019-10-04] MEDS: Digoxin 0.125 MG TAB PO SCH (08:49)
[2019-10-04] MEDS: Sotalol HCl 80 MG TAB PO SCH (08:49)
[2019-10-04 12:41] VITALS: BP 94/58
--- NOTE | 2019-10-05 11:12 | DIS ---
DATE OF ADMISSION: 09/29/2019 DATE OF DISCHARGE: 10/04/2019 HOSPITAL COURSE: Mr. Patel is a 69-year-old male with a medical history of atrial fibrillation, myocardial infarction, hypothyroidism, AICD, and aortic valve replacement, presented to the ED for shortness of breath. The patient was found to have paroxysmal atrial fibrillation, which was poorly controlled. Cardiology was consulted and per Cardiology, the patient had hyperthyroidism, so amiodarone was stopped and the patient was started on sotalol, which he tolerated well. QTc was not prolonged on the day of discharge. In addition to that, the patient had anemia. Studies showed a negative FOBT and it was consistent with anemia of chronic inflammation and the patient was restarted on apixaban and his blood levels were followed prior to discharge and they remained stable. PHYSICAL EXAMINATION: VITAL SIGNS: On the day of discharge, the patient was hemodynamically stable. Vitals were unremarkable. GENERAL: No apparent distress. Alert and oriented x3, emaciated. NECK: No JVD. HEART: Irregularly irregular rhythm, normal rate. RESPIRATORY: Clear to auscultation bilaterally with exception of right lower field inspiratory rales. No wheezing or rhonchi. GI: Soft, nontender, nondistended. Normal bowel sounds. EXTREMITIES: No edema. PSYCHIATRIC: Normal affect and behavior. Alert and oriented x3. ASSESSMENT AND PLAN: Mr. Patel is a 69-year-old male with a medical history of atrial fibrillation, who presented with atrial fibrillation with RVR. Per Cardiology, the patient had hyperthyroidism, so amiodarone was discontinued and sotalol was started. The patient tolerated sotalol well, and rhythm was well controlled. On the day of discharge, the patient did have an 8-beat wide-complex tachycardia. Cardiology was informed and deemed it benign. He was discharged home with followup appointments with EP Cardiology. For the patient's anemia, the patient has been worked up and it was found to be consistent with anemia of chronic inflammation. He was hemodynamically stable, and hemoglobin was stable prior to discharge. FOBT was negative as well. Apixaban was restarted and despite him being on apixaban, there were no episodes of bleeding and hemoglobin remained stable. Job ID: [id number]
== END 2019-10-04 12:35 | disposition home or self-care (01) | DRG 291 ==
LOC: ERS 13:37 → ERHOLD 21:27 → 2NO 09-30 00:05
PROVIDERS: ADMIT Internal Medicine; ATTEND Internal Medicine
PROC: 30233N1 Transfusion of Nonautologous Red Blood Cells into Peripheral Vein, Percutaneous Approach (ICD-10-PCS; principal; 2019-09-29)
DX: I13.0 Hypertensive heart and chronic kidney disease with heart failure and stage 1 through stage 4 chronic kidney disease, or unspecified chronic kidney disease (principal); E43 Unspecified severe protein-calorie malnutrition; I50.23 Acute on chronic systolic (congestive) heart failure; N17.9 Acute kidney failure, unspecified; E87.2 Acidosis; I48.19 Other persistent atrial fibrillation; R64 Cachexia; Z68.1 Body mass index [BMI] 19.9 or less, adult; E03.9 Hypothyroidism, unspecified; E87.5 Hyperkalemia; N18.3 Chronic kidney disease, stage 3 (moderate); I95.9 Hypotension, unspecified; E05.80 Other thyrotoxicosis without thyrotoxic crisis or storm; I44.7 Left bundle-branch block, unspecified; J84.10 Pulmonary fibrosis, unspecified; D63.1 Anemia in chronic kidney disease; I48.0 Paroxysmal atrial fibrillation; I25.5 Ischemic cardiomyopathy; I73.9 Peripheral vascular disease, unspecified; M10.9 Gout, unspecified; I25.10 Atherosclerotic heart disease of native coronary artery without angina pectoris; Z95.2 Presence of prosthetic heart valve; Z79.01 Long term (current) use of anticoagulants; I25.2 Old myocardial infarction; Z95.810 Presence of automatic (implantable) cardiac defibrillator
CPT/HCPCS: 36415; 36416; 36430; 71045; 71250; 80048; 80053; 80076; 80162; 82274; 82330; 82553; 82565; 82728; 82803; 83540; 83550; 83605; 83735; 83880; 84439; 84443; 84481; 84484; 85014; 85018; 85025; 85046; 85049; 86850; 86900; 86901; 93005; 93010; 93798; 94640; 96361; 96374; 96375; C9113; J0282; J1815; J1940; J7070; J7512; J7611; P9016

== ENCOUNTER 2020-02-17 14:19 | Inpatient (IN) | payer OTHER ==
--- NOTE | 2020-02-17 14:43 | RAD ---
EXAM: Chest 2 views: HISTORY: Chest pain COMPARISON: 09/29/2019 FINDINGS: There is an enlarged but stable cardiomediastinal silhouette. The pacemaker is unchanged in position . Increased interstitial lung markings are present. Biapical pleural thickening is seen. There is no evidence of consolidation, mass, or pleural effusion. The bones are unremarkable. IMPRESSION: Stable exam
[2020-02-17 14:53] LABS: Hemoglobin 11.3 g/dL (14.0-18.0); Mean Corpuscular HGB CONC 31.6 g/dL (32.0-36.0); Mean Corpuscular Hemoglobin 28.9 pg (27.0-31.0); Mean Corpuscular Volume 91.4 fL (78.0-98.0); Mean Platelet Volume 9.8 fL (7.4-10.4); Platelet Count 352 thou/uL (130-400); RBC Distribution Width 17.3 % (11.5-14.5); Red Blood Cell (RBC) Count 3.93 mill/uL (4.70-6.10); White Blood Cell (WBC) Count 9.1 thou/uL (4.8-10.8)
[2020-02-17 15:20] LABS: Anisocytosis SLIGHT = 6-15 cells (100X) (0-5/hpf); Band 2 % (5-11); Lymphocytes 14 % (21-51); MDiff Complete? YES; Monocytes 3 % (0-10); Neutrophil 80 % (42-75); Ovalocytes SLIGHT = 2-5 cells (100X) (0-1/hpf); Platelet Morphology Comment Appears Adequate; Polychromasia SLIGHT = 2-3 cells (100X) (0-2/hpf); Reactive Lymphocytes 1 % (0-10); Target Cells SLIGHT = 2-5 cells (100X) (0-1/hpf)
[2020-02-17 15:26] LABS: ALT (SGPT) 21 U/L (8-55); AST (SGOT) 17 U/L (5-34); Alkaline Phosphatase 83 U/L (40-110); Anion Gap 14 mmol/L (10-20); BUN (Urea Nitrogen) 13 mg/dL (8.4-25.7); Bilirubin, Total 0.5 mg/dL (0.2-1.2); Calc. Creatinine Clearance 0 mL/min (70-130); Calcium 9.1 mg/dL (7.8-10.44); Carbon Dioxide 26 mmol/L (23-31); Chloride 102 mmol/L (98-107); Estimated GFR-MDRD 83; Globulin 2.8 g/dL (2.4-3.5); Glucose 253 mg/dL (80-115); Potassium 4.3 mmol/L (3.5-5.1); Protein, Total 6.8 g/dL (5.8-8.1); Sodium 138 mmol/L (136-145)
[2020-02-17 15:42] LABS: CKMB 3.1 ng/mL (0-6.6)
[2020-02-17] MEDS ORDERED: Aspirin Chewable 81 MG TAB ONE (16:51)
[2020-02-17] MEDS ORDERED: Acetaminophen 325 MG TAB PO PRN (17:44)
[2020-02-17] MEDS ORDERED: Acetaminophen 650 MG Suppository PR PRN (17:44)
[2020-02-17] MEDS ORDERED: Nitroglycerin 0.4 MG TAB (25 Tab Bottle) PO PRN (17:48)
[2020-02-17 18:48] LABS: CKMB 3.5 ng/mL (0-6.6)
--- NOTE | 2020-02-17 20:05 | HP ---
TIME OF ASSESSMENT: 1700 hours. PRIMARY CARE PHYSICIAN: Joao Power MD CHIEF COMPLAINT: Chest pain. HISTORY OF PRESENT ILLNESS: Mr. Patel is a 70-year-old gentleman with known ischemic cardiomyopathy and severe coronary artery disease, who presents with an episode of severe chest pain that occurred while on his tractor. The patient states the pain was substernal, described as severe pressure, which he rates a 10/10 in severity, radiating down his left arm. He states the pain lasted approximately 10 minutes and he had associated shortness of breath, which lasted approximately 30 minutes. The patient reports having a teleconference with his plastic technician, Dr. Batres yesterday and states he had reported feeling well without any major complaints. The patient does recall having a similar episode of chest pain on Saturday, which he states was not as severe. He states he was out of town and upon returning home, was completely asymptomatic, which is why he decided not to seek any medical attention. He does have chronic issues with shortness of breath on exertion, but states he felt more breathless than usual earlier today. He has a single chamber ICD, which per Dr. Canas's note in September during recent admission was functioning adequately. The patient apparently was recommended to upgrade to a biventricular ICD, which was to be done as an outpatient. The patient states this could not be done due to issues with the wires on the old device and states he is scheduled to have this done at [facility] this upcoming Saturday, February 22, 2020. He reports what had brought him into the hospital in September were complications associated with Entresto, which he was put on in July 2019. He states he had developed anemia and GI bleed and therefore was taken off Entresto. He has continued Eliquis at 5 mg b.i.d. and has not had any symptoms of GI bleed. The laboratory studies done today showed a hemoglobin of 11.3 compared to 8.5 back in September. The patient states he has been doing fairly well since he was discharged from the hospital on October 05, 2019. At present, the patient reports feeling well and without any pain. His breathing has improved since before arriving to the ER. He feels he is back to his normal baseline. Last echo was done on July 20, 2019, showing severely increased left ventricular size with an EF of 15% to 20%. Inferior and posterior graves are akinetic. Left atrium, severely dilated. Moderate mitral regurgitation. Moderate to severe tricuspid regurgitation. EMERGENCY DEPARTMENT COURSE: In the emergency department, he had an EKG done showing normal sinus rhythm with a heart rate of [address] segments are normal with inverted T-waves affecting leads 1 and aV1. Initial troponin was indeterminate at 0.193. CK-MB 3.1. Chest x-ray was done showing an enlarged but stable cardiomediastinal silhouette. Pacemaker, change in position. Increased interstitial lung markings present with biapical pleural thickening seen. No consolidation mass or pleural effusion. Overall, stable in comparison to September 29, 2019. He was given 243 mg of aspirin since he took his normal baby aspirin in the morning. PAST MEDICAL HISTORY: 1. Acute on chronic systolic congestive heart failure and ischemic cardiomyopathy. 2. Single-chamber ICD with recent interrogation revealing adequate function and no significant arrhythmias in September 2019. 3. History of ventricular tachycardia, responsive to ATP therapies. 4. Persistent AF with prior ablation. Recent recurrence in the setting of acute RI, treated with amiodarone successfully. 5. Severe coronary artery disease. 6. Hyperthyroidism with overly suppressed TSH. 7. Pulmonary fibrosis. PAST SURGICAL HISTORY: 1. Single-chamber ICD, Ellipse DR implanted in April [address] [facility]. 2. Persistent AF, status post PVAI on June 24, 2017. 3. 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 4. Aortic repair. 5. Left femoral stent. FAMILY HISTORY: Noncontributory. SOCIAL HISTORY: The patient reports drinking alcohol occasionally. He previously smoked heavily, but quit in 2006. Denies any drug use. He lives with his . He is fully independent. ALLERGIES: NO KNOWN DRUG ALLERGIES. CURRENT MEDICATIONS: 1. Allopurinol. 2. Apixaban. 3. Aspirin. 4. Digoxin. 5. Furosemide. 6. Indomethacin. 7. Levothyroxine. 8. Pantoprazole. 9. Prednisone. 10. Sotalol. PHYSICAL EXAMINATION: GENERAL: The patient appears very thin. He is in no acute distress. He is resting comfortably on a stretcher. VITAL SIGNS: Temperature 98, pulse 78, blood pressure 149/90, respirations 22, and O2 saturation 100% on room air. HEENT: Normocephalic and atraumatic. Pupils are equal, round, and reactive to light. Sclerae without icterus. Oropharynx is clear. NECK: Supple. LUNGS: Notable for crackles at the bilateral bases. No tachypnea. Normal chest expansion. CARDIAC: Regular rate and rhythm. No chest wall tenderness. ABDOMEN: Soft, nontender, nondistended. Normoactive bowel sounds present. No guarding or rigidity. No renal angle tenderness. EXTREMITIES: No lower leg swelling or edema. NEUROLOGIC: Alert and oriented x3. No neuro deficits on exam. Speech normal. SKIN: Warm and dry. INVESTIGATIONS: As mentioned above in HPI. LABORATORY DATA: White blood count 9.1, hemoglobin 11.3, hematocrit 35.9, platelets 352, neutrophils 80, and bands 2%. Sodium 138, potassium 4.3, BUN 13, creatinine 0.91, GFR 83, glucose 253, and calcium 9.1. LFTs unremarkable. IMPRESSION AND PLAN: Mr. Patel is a 70-year-old gentleman presenting with chest pain, who is being admitted for management of the following; 1. Acute coronary syndrome rule out. He has known ischemic cardiomyopathy and severe coronary artery disease with myocardial infarctions in the past. He is chest pain-free at the moment. Initial troponin indeterminate at 0.193 and we will continue to trend troponins. He will remain on cardiac monitoring. We will place consultation to his plastic technician, Dr. Batres, as per patient's request. 2. Ischemic cardiomyopathy. Last echo done in June 2019 as mentioned above. The patient is concerned regarding surgery scheduled for next Saturday at [facility] in [place] for biventricular ICD placement. Requesting Dr. Canas be notified to obtain feedback regarding plans for upcoming surgery. 3. Hypertension. Monitor blood pressure and reconcile home medications as appropriate. 4. Atrial fibrillation. Normal sinus rhythm on EKG. The patient is on Eliquis, which we will continue. As mentioned, he will be on continuous cardiac monitoring. 5. Hypothyroidism. Check TSH. We will resume home medications once verified. 6. Gastrointestinal prophylaxis. Famotidine 20 mg IV b.i.d. 7. Deep venous thrombosis prophylaxis with mechanical SCDs. As mentioned, the patient is already on anticoagulation. 8. Code status, full. Surrogate decision maker is his , Clarisa Patel. 9. Leukocytosis. The patient with bands of 2. Afebrile. No signs or symptoms of infection. Chest x-ray is stable. We will obtain a urinalysis/urine culture. Screening COVID testing done in the ED. Case discussed with attending, Dr. Sena, who agrees with plan as above. As per Dr. Sena's request, we will discontinue n.p.o. status. Job ID: [id number]
[2020-02-17] MEDS: Famotidine/PF 20 mg/2ml Vial SLOW IVP SCH (21:09)
[2020-02-17 23:49] LABS: Bacteria/HPF None Seen HPF (None Seen); Bilirubin Negative (Negative); Blood, Urine Negative (Negative); Clarity Clear (Clear); Glucose, Urine (Dipstick) Normal (Negative); Ketone, Urine Negative (Negative); Leukocyte Negative Leu/uL (Negative); Nitrite Negative (Negative); Protein, Urine (Dipstick) Negative (Neg-Trace); RBC/HPF 0-3 HPF (0-3); Specific Gravity, Urine 1.022 (1.002-1.036); Squamous Epithelial None Seen HPF (0-3); Urobilinogen Normal mg/dL (Less than 2); WBC/HPF 0-3 HPF (0-3); pH, Urine 6.5 (5.0-9.0)
[2020-02-17 23:59] LABS: Urine Culture Reflex No No
[2020-02-18 02:56] VITALS: BMI 15.8
[2020-02-18 05:44] LABS: Band 2 % (5-11); Hemoglobin 10.2 g/dL (14.0-18.0); Lymphocytes 29 % (21-51); MDiff Complete? YES; Mean Corpuscular HGB CONC 30.8 g/dL (32.0-36.0); Mean Corpuscular Volume 91.1 fL (78.0-98.0); Mean Platelet Volume 9.8 fL (7.4-10.4); Monocytes 14 % (0-10); Neutrophil 55 % (42-75); Platelet Count 334 thou/uL (130-400); Platelet Morphology Comment Appears Adequate; RBC Distribution Width 17.3 % (11.5-14.5); Red Blood Cell (RBC) Count 3.65 mill/uL (4.70-6.10); White Blood Cell (WBC) Count 9.4 thou/uL (4.8-10.8)
[2020-02-18 05:48] LABS: Anion Gap 10 mmol/L (10-20); BUN (Urea Nitrogen) 15 mg/dL (8.4-25.7); Calc. Creatinine Clearance 69 mL/min (70-130); Calcium 8.7 mg/dL (7.8-10.44); Carbon Dioxide 30 mmol/L (23-31); Cardiac Risk 3.6 (Less than 4.5); Chloride 104 mmol/L (98-107); Cholesterol 134 mg/dl (< 200 Desired); Estimated GFR-MDRD Greater than 90; Glucose 97 mg/dL (80-115); HDL Cholesterol 37 mg/dL (>60 Neg Risk); LDL Cholesterol, Calculated 85 mg/dL; Potassium 3.6 mmol/L (3.5-5.1); Sodium 140 mmol/L (136-145); Triglycerides 60 mg/dL (Less than 150)
[2020-02-18] MEDS ORDERED: Heparin 10,000 UNITS/1 ML VIAL ONE (06:53)
[2020-02-18] MEDS ORDERED: Verapamil 5 MG/2 ML VIAL ONE (06:54)
[2020-02-18] MEDS ORDERED: Nitroglycerin 100MG/250ML BOT 250 ML ONE ×2 (06:54→08:14)
[2020-02-18] MEDS ORDERED: Communication Order-Pharmacy FS SCH (07:00)
[2020-02-18] MEDS ORDERED: Sodium Chloride 0.9% 1,000 ML IV SCH ×2 (07:00→08:45)
--- NOTE | 2020-02-18 07:18 | CON ---
DATE OF CONSULTATION: REASON FOR CONSULTATION: Acute onset chest pain. HISTORY OF PRESENT ILLNESS: Mr. Patel is a 70-year-old gentleman whom I have seen and evaluated in the past. He has a history of ischemic cardiomyopathy with previous scar noted to the inferolateral wall, dated December of 2018. His LVEF that time was 15%. He has an ICD. He was scheduled for a biventricular pacemaker in [place] due to the inability to cannulate the subclavian. He was in normal state of health when he presented with acute onset of chest pain. This was severe. He had been doing very well up until an episode yesterday. He had associated diaphoresis. No other associated ameliorating or exacerbating factors present. His initial troponin was 0.2. He is currently pain free. PAST MEDICAL HISTORY: As above including previous AR, ischemic cardiomyopathy, ICD placement, hypertension, AFib, hypothyroidism. ALLERGIES: NONE. HOME MEDICATIONS: 1. Zaroxolyn. 2. Allopurinol. 3. Indomethacin. 4. Prednisone. 5. Eliquis. 6. Carvedilol. 7. Entresto. 8. Levothyroxine. 9. Lasix. 10. Digoxin. FAMILY HISTORY: Negative. SOCIAL HISTORY: No current tobacco use. REVIEW OF SYSTEMS: 10-point review of systems is as above, otherwise negative. PHYSICAL EXAMINATION: GENERAL: Patient is a pleasant gentleman who is in no acute distress. The patient appears their stated age. VITAL SIGNS: Blood pressure 112/70, pulse 71, temperature 97.7. NEUROLOGIC: The patient is alert and oriented x3 with no focal neurologic deficits. HEENT: Sclerae without icterus. Mouth has moist mucous membranes with normal pallor. NECK: No JVD. Carotid upstroke brisk. No bruits bilaterally. LUNGS: Clear to auscultation with unlabored respirations. BACK: No scoliosis or kyphosis. CARDIAC: Regular rate and rhythm with normal S1 and S2. No S3 or S4 noted. No significant rubs, murmurs, thrills, or gallops noted throughout the precordium. PMI is not displaced. There is no parasternal heave. ABDOMEN: Soft, nontender, nondistended. No peritoneal signs present. No hepatosplenomegaly. No abnormal striae. EXTREMITIES: 2+ femoral and 2+ dorsalis pedis pulses. No cyanosis, clubbing, or edema. SKIN: No gross abnormalities. PERTINENT LABORATORY DATA: Hemoglobin 10.2, hematocrit 33.2. Creatinine 0.76. Peak troponin 0.22. TSH 0.004. IMPRESSION: 1. Unstable angina. 2. Coronary artery disease. 3. Previous myocardial infarction. RECOMMENDATIONS: Mr. Patel's symptoms certainly suggest unstable angina. They were acute in onset and severe with associated diaphoresis. At this point, I recommend coronary angiography plus PCI. I discussed procedure in full detail with Mr. Patel. Risks include not limited to the following: , stroke, AR, need for emergency surgery, loss of limb, bleeding, and infection, as well as a reaction to the dye causing kidney failure and needing long-term dialysis. I also discussed the risks of PCI to include all of the above including coronary dissection and perforation in addition to acute stent thrombosis and restenosis. All questions about the procedure were answered. Given the above, the patient agreed to proceed with coronary angiography and possible PCI. All questions were answered. There were no complications to proceed with drug coated stent placement, proceed if needed. He does have elevated TSH and is felt to be exogenous. He is currently on Synthroid. This is not due to negative hyperthyroidism. Based on his current findings of unstable angina, the benefits outweigh the risks of proceeding with coronary angiography. Job ID: [id number]
[2020-02-18] MEDS ORDERED: Clopidogrel Bisulfate 300 MG TAB ONE (08:19)
[2020-02-18] MEDS ORDERED: Prevnar 13-Val Conj/PF 0.5 ML SYRINGE IM ONE (09:00)
[2020-02-18] MEDS: Aspirin 325 mg Enteric Coated Tablet PO SCH (09:02)
[2020-02-18] MEDS: Famotidine/PF 20 mg/2ml Vial SLOW IVP SCH ×2 (09:03→22:25)
[2020-02-18] MEDS ORDERED: Iopamidol 370 76% 50 ML VIAL FS ONE (10:27)
[2020-02-18] MEDS ORDERED: Iopamidol 370 76% 100 ML VIAL ONE (10:27)
--- NOTE | 2020-02-18 11:32 | PDOC.HOSPP ---
- Subjective Encounter Date: 02/18/20 Encounter Time: 09:10 Subjective: pt is seen this morning; he denies any chest pain. He is normotensive currently. Cardiology consult pending. His TSH is extremely low 0.2004 and free T4 is 1.61. His troponin 0.25. His creatinine 0.76. - Objective Vital Signs & Weight: Vital Signs (12 hours) Temp Pulse Resp BP Pulse Ox 02/18/20 08:00 97.6 F 72 16 121/73 99 02/18/20 04:00 97.7 F 71 12 112/70 98 02/18/20 00:00 97.7 F 73 14 126/84 99 Weight Weight 116 lb 14.4 oz Result Diagrams: 02/18/20 04:31 02/18/20 04:31 Hospitalist ROS - Medication Medications: Active Medications Generic Name Dose Route Start Last Admin Trade Name Freq PRN Reason Stop Dose Admin Aspirin 325 mg 02/18/20 09:00 02/18/20 09:02 Ecotrin PO 325 mg DAILY DEJUAN Administration Famotidine 20 mg 02/17/20 21:00 02/18/20 09:03 Pepcid SLOW IVP 20 mg Q12HR DEJUAN Administration Sodium Chloride 1,000 mls @ 100 mls/hr 02/18/20 08:45 02/18/20 09:03 Normal Saline 0.9% IV 02/18/20 14:46 1,000 mls .Q10H DEJUAN Administration - Exam General Appearance: NAD, awake alert Eye: PERRL ENT: normocephalic atraumatic Neck: supple Heart: RRR Respiratory: CTAB, normal chest expansion Gastrointestinal: soft, normal bowel sounds Neurological: no focal deficits Psychiatric: A&O x 3 Hosp A/P - Plan Chest pain with abnormal troponin Type II metabolic mismatch demand ischemia Ischemic cardiomyopathy with a last echo in June 2019 showing 50% EF -Patient has an single-lead ICD. Plan for biventricular ICD placement in [place] on February 21. Cardiology consult pending. His troponin 0.25. His creatinine 0.76. Severe hyperthyroidism His TSH is extremely low 0.2004 and free T4 is 1.61. -At some point he appeared to be on amiodarone that has been discontinued due to his hyperthyroidism and the sotalol started.. I am going to start him on a low-dose methimazole. No drug interactions has been seen with sotalol. -We will resume his home Medicaid patients including Eliquis and sotalol.
[2020-02-18 14:08] LABS: SARS-CoV-2 MS2 Positive; SARS-CoV-2 N Gene Negative; SARS-CoV-2 S Gene Negative; SARS-CoV-2 by NAA Not Detected (NotDetected); SARS-CoV-2 orf1ab Negative
[2020-02-18] MEDS: Sotalol HCl 80 MG TAB PO SCH (22:25)
[2020-02-18] MEDS: Apixaban 5 MG TAB PO SCH (22:26)
[2020-02-18] MEDS: Furosemide 20 MG TAB PO SCH (22:26)
[2020-02-19 06:05] LABS: Anisocytosis MODERATE=16-30 cells (100X) (0-5/hpf); Band 8 % (5-11); Elliptocytes SLIGHT = 2-5 cells (100X) (0-1/hpf); Hypochromia SLIGHT = 6-15 cells (100X) (0-5/hpf); Lymphocytes 24 % (21-51); MDiff Complete? YES; Mean Corpuscular HGB CONC 31.6 g/dL (32.0-36.0); Mean Corpuscular Hemoglobin 28.7 pg (27.0-31.0); Mean Corpuscular Volume 90.6 fL (78.0-98.0); Monocytes 9 % (0-10); Neutrophil 58 % (42-75); Platelet Count 342 thou/uL (130-400); Platelet Morphology Comment Appears Adequate; Poikilocytosis MODERATE=16-30 cells (100X) (0-5/hpf); Polychromasia SLIGHT = 2-3 cells (100X) (0-2/hpf); RBC Distribution Width 16.9 % (11.5-14.5); Red Blood Cell (RBC) Count 3.83 mill/uL (4.70-6.10); Schistocytes MODERATE= 6-15 cells (100X) (0-1/hpf); White Blood Cell (WBC) Count 9.4 thou/uL (4.8-10.8)
[2020-02-19 06:05] LABS: ALT (SGPT) 16 U/L (8-55); AST (SGOT) 15 U/L (5-34); Albumin 3.5 g/dL (3.4-4.8); Alkaline Phosphatase 82 U/L (40-110); Anion Gap 13 mmol/L (10-20); BUN (Urea Nitrogen) 10 mg/dL (8.4-25.7); Bilirubin, Total 0.6 mg/dL (0.2-1.2); Calc. Creatinine Clearance 77 mL/min (70-130); Calcium 8.9 mg/dL (7.8-10.44); Carbon Dioxide 28 mmol/L (23-31); Chloride 100 mmol/L (98-107); Estimated GFR-MDRD Greater than 90; Globulin 2.7 g/dL (2.4-3.5); Glucose 87 mg/dL (80-115); Potassium 3.6 mmol/L (3.5-5.1); Protein, Total 6.2 g/dL (5.8-8.1); Sodium 137 mmol/L (136-145)
[2020-02-19] MEDS ORDERED: Clopidogrel Bisulfate 75 MG TAB PO SCH (09:00)
[2020-02-19] MEDS ORDERED: Allopurinol 300 MG TAB PO SCH (09:00)
[2020-02-19] MEDS ORDERED: Digoxin 0.125 MG TAB PO SCH (09:00)
[2020-02-19] MEDS ORDERED: Aspirin Chewable 81 MG TAB PO SCH (09:00)
[2020-02-19] MEDS ORDERED: Methimazole 5 MG TAB PO SCH (09:00)
[2020-02-19] MEDS: Furosemide 20 MG TAB PO SCH (09:33)
[2020-02-19] MEDS: Apixaban 5 MG TAB PO SCH (09:33)
[2020-02-19] MEDS: Famotidine/PF 20 mg/2ml Vial SLOW IVP SCH (09:36)
[2020-02-19] MEDS: Aspirin 325 mg Enteric Coated Tablet PO SCH (09:44)
[2020-02-19] MEDS: Sotalol HCl 80 MG TAB PO SCH (09:44)
--- NOTE | 2020-02-19 11:34 | PDOC.HOSPP ---
- Subjective Encounter Date: 02/19/20 Encounter Time: 09:40 Subjective: Patient has no chest pain. He had a stent placement yesterday he is both on metoprolol and sotalol will discontinue the metoprolol, unless cardiology wants him to continue with that. His blood pressure on the low side. - Objective Vital Signs & Weight: Vital Signs (12 hours) Temp Pulse Pulse Pulse Resp BP BP 02/19/20 09:44 74 106/68 02/19/20 09:35 74 02/19/20 08:42 87 75 110/69 02/19/20 08:00 97.5 F L 85 16 02/19/20 03:40 98.1 F 75 16 02/18/20 23:45 98.6 F 78 16 BP BP BP Pulse Ox 02/19/20 09:44 02/19/20 09:35 02/19/20 08:42 129/79 02/19/20 08:00 97/65 95 02/19/20 03:40 97/67 100 02/18/20 23:45 137/71 97 Weight Weight 116 lb 14.4 oz I&O: 02/18/20 02/19/20 02/20/20 06:59 06:59 06:59 Intake Total 1180 Output Total 1220 Balance -40 Result Diagrams: 02/19/20 05:28 02/19/20 05:27 Hospitalist ROS - Medication Medications: Active Medications Generic Name Dose Route Start Last Admin Trade Name Freq PRN Reason Stop Dose Admin Allopurinol 300 mg 02/19/20 09:00 02/19/20 09:35 Zyloprim PO 300 mg DAILY DEJUAN Administration Apixaban 5 mg 02/18/20 21:00 02/19/20 09:33 Eliquis PO 5 mg BID DEJUAN Administration Aspirin 81 mg 02/19/20 09:00 02/19/20 09:33 Aspirin Chewable PO 81 mg DAILY DEJUAN Administration Clopidogrel Bisulfate 75 mg 02/19/20 09:00 02/19/20 09:33 Plavix PO 75 mg DAILY DEJUAN Administration Digoxin 0.125 mg 02/19/20 09:00 02/19/20 09:35 Lanoxin PO 0.125 mg QAM DEJUAN Administration Famotidine 20 mg 02/17/20 21:00 02/19/20 09:36 Pepcid SLOW IVP 20 mg Q12HR DEJUAN Administration Furosemide 20 mg 02/18/20 21:00 02/19/20 09:33 Lasix PO 20 mg BID DEJUAN Administration Methimazole 5 mg 02/19/20 09:00 02/19/20 09:33 PO 5 mg DAILY DEJUAN Administration Sotalol HCl 40 mg 02/18/20 21:00 02/19/20 09:44 Betapace PO Not Given BID DEJUAN - Exam General Appearance: NAD, awake alert Eye: PERRL ENT: normocephalic atraumatic Neck: supple Heart: RRR Respiratory: CTAB Gastrointestinal: soft, normal bowel sounds Extremities: no cyanosis Neurological: no focal deficits Hosp A/P - Plan Chest pain with abnormal troponin Type II metabolic mismatch demand ischemia Ischemic cardiomyopathy with a last echo in June 2019 showing 50% EF -Patient has an single-lead ICD. Plan for biventricular ICD placement in [place] on February 21. Cardiology consult pending. His troponin 0.25. His creatinine 0.76. Severe hyperthyroidism His TSH is extremely low 0.2004 and free T4 is 1.61. -At some point he appeared to be on amiodarone that has been discontinued due to his hyperthyroidism and the sotalol started.. I am going to start him on a low-dose methimazole. No drug interactions has been seen with sotalol. -We will resume his home Medicaid patients including Eliquis and sotalol. s/p stent placement pending cardiology clearance for discharge also medications has to be reviewed with them on both metoprolol and the sotalol. And patient blood pressure is on the low side.
[2020-02-19 11:47] VITALS: BP 106/74; TEMP 98.4
--- NOTE | 2020-02-19 19:11 | PDOC.CPN ---
- Subjective Date: 02/19/20 Time: 14:00 Interval history: He is doing well. No angina. no SOB. His wrist is without issues. - Review of Systems General: denies: fever/chills, weight/appetite/sleep changes, night sweats, fatigue Respiratory: denies: cough, congestion, shortness of breath, exercise intolerance Cardiovascular: denies: chest pain, palpitation, edema, paroxysmal nocturnal dyspnea, orthopnea Gastrointestinal: denies: nausea, vomiting, diarrhea, constipation, abd pain, GI bleeding Musculoskeletal: denies: pain, tenderness, stiffness, swelling, arthritis/ arthralgias Neurological: denies: numbness, syncope, seizure, weakness - Objective Allergies/Adverse Reactions: Allergies Allergy/AdvReac Type Severity Reaction Status Date / Time No Known Allergies Allergy Verified 10/11/19 19:48 Vital Signs & Weight: Vital Signs Temp Pulse Pulse Pulse Resp BP BP 02/19/20 11:47 98.4 F 82 16 02/19/20 09:44 74 106/68 02/19/20 09:35 74 02/19/20 08:42 87 75 110/69 02/19/20 08:00 97.5 F L 85 16 BP BP Pulse Ox 02/19/20 11:47 106/74 97 02/19/20 09:44 02/19/20 09:35 02/19/20 08:42 129/79 02/19/20 08:00 97/65 95 Admit Weight 116 lb 14.4 oz Weight 116 lb 14.4 oz - Physical Exam General: alert & oriented x3 HEENT: mucus membranes moist Neck: supple neck Cardiac: regular rate and rhythm Lungs: clear to auscultation Neuro: grossly intact Abdomen: active bowel sounds Extremities: no edema Skin: clear Musculoskeletal: no pain - Labs Result Diagrams: 02/19/20 05:28 02/19/20 05:27 Troponin/CKMB CK-MB (CK-2) 3.0 ng/mL (0-6.6) 02/18/20 04:31 Troponin I 0.250 ng/mL (< 0.028) H 02/18/20 06:30 - Telemetry Sinus rhythms and dysrhythmias: sinus rhythm - Assessment/Plan Assessment/Plan: 1. Unstable angina 2. CAD 3. S/P PCi to RCA with ZULEYKA. 4. Ischemic CM EF at 15% 5. Presence of an AICD. 6. Atrial fibrillation. PLAN: - ASA, Plavix, eliquis for 1 month then drop aspirin after a month. - Plavix and eliquis for 11 months after. - Follow up with Dr. Batres in 2-4 weeks.
--- NOTE | 2020-02-20 17:41 | DIS ---
DATE OF ADMISSION: 02/17/2020 DATE OF DISCHARGE: 02/19/2020 DISCHARGE DIAGNOSES: 1. Blo-NL-gjuwyci elevation myocardial infarction. 2. Unstable angina. 3. Status post coronary angiography plus percutaneous coronary intervention. Cath report is still pending. 4. Ischemic cardiomyopathy, status post single-lead implantable cardioverter defibrillator and planned to get a biventricular implantable cardioverter defibrillator placement in [place] on February 21. 5. Severe hyperthyroidism. DISCHARGE MEDICATIONS: 1. Per Cardiology recommendations, aspirin 81 mg daily, Plavix 75 mg daily, and Eliquis 5 mg twice a day for 1 year, and he can drop aspirin 81 mg after 1 year and continue with Plavix and Eliquis indefinitely. 2. He is on both Toprol and sotalol. Per Cardiology recommendation, I had discontinued his Toprol. 3. He was on levothyroxine 100 mcg. His TSH was 0.004 and free T4 was 1.61. I have discontinued his levothyroxine and started him on methimazole. I request primary care physician to follow up in 2 to 3 weeks with repeat TSH and adjust the dose of medications. There is no contraindication at this time to start him on methimazole. PHYSICAL EXAMINATION: Please see my progress note for today's details. HOSPITAL COURSE: This is a 70-year-old male with a history of left ventricular ejection fraction of 15% and a single lead ICD, presented with chest pain. He is planning to get a biventricular pacer in [place]. His troponin was 0.22, so he went through coronary angiogram as well as PCI. The detail is pending. He did have one drug-eluting stent placed. Medication changes are given as above. The patient is hemodynamically stable to be discharged. DISCHARGE INSTRUCTIONS: 1. Activity: As tolerated. 2. Diet: Healthy heart diet. 3. Follow up with PCP in 1 week. Follow up with Dr. Edge in 2 to 3 weeks. Instructions for PCP: He is started on methimazole, please follow up with TSH. TIME SPENT: Discharge time took over 35 minutes. Job ID: [id number] MTDD
--- NOTE | 2020-02-22 05:52 | PQF ---
CLINICAL DOCUMENTATION CLARIFICATION FORM: Dear : Tamika Sena Date / Time: 02/22/2020 05:51 Please exercise your independent, professional judgment in responding to the clarification form. Clinical indicators are provided on the bottom of this form for your review Is Chest Pain associated with: Please check appropriate box(es): [ ] CAD with unstable angina [ ] Persistent Afib [ ] NSTEMI Please specify type: [ ] NSTEMI type 1 [ ] NSTEMI type 2 (please specify known cause) [ x ] NSTEMI type 2 due to demand ischemia [ ] ACS [ ] Other diagnosis [ ] Unable to determine Physician Signature: Date/Time: For continuity of documentation, please document condition throughout progress notes and discharge summary. Thank You. To be completed by CDI/Coding staff for physician review: Present Clinical Indicators - Signs / Symptoms / Labs Results and Location in Medical Record [x] CC:chest pain HP 02/16 [x] pain was substernal described as severe pressure which he rated a 10/10 severity radiating down his left arm HP 02/16 [x] EKG: ST segments are normal with inverted T waves HP 02/16 [x] Acute coronary syndrome rule out HP 02/16 [x] Unstable angina Consult 02/17 [x] Type 2 metabolic mismatch demand ischemia PN 02/17 [x] Troponin: 02/16=0.222 02/17=0.250 Labs 02/16 Present Risk Factors Results and Location in Medical Record [x] 70 years old male HP 02/16 [x] Ischemic cardiomyopathy HP 02/16 [x] CAD HP 02/16 [x] Chronic systolic CHF HP 02/16 [x] Persistent Afib HP 02/16 [x] HTN HP 02/16 [x] NSTEMI DS 02/18 [x] Former Smoker HP 02/16 Present Treatments Results and Location in Medical Record [x] EKG HP 02/16 [x] LHC with PTCA ZULEYKA Community Director 02/16 [x] Aspirin 81mg Oral SEP 25 [x] Heparin 22226 units IV SEP 25 [x] Eliquis 5mg Oral SEP 25 [x] Plavix 75mg Oral SEP 25 [x] Cardiology Consult Consult 02/17 CDS/Jointer Machine Operator Signature: Asher Marks Phone #: [phone] Date/Time: 02/22/2020 05:51 This is a permanent part of the Medical Record [facility]
--- NOTE | 2020-02-22 05:56 | PQF ---
CLINICAL DOCUMENTATION CLARIFICATION FORM: Dear : Tamika Sena Date / Time: 02/22/2020 05:55 Please exercise your independent, professional judgment in responding to the clarification form. Clinical indicators are provided on the bottom of this form for your review Please check appropriate box(es): [ x ] Protein Calorie Malnutrition: [ ] Mild [ x ] Moderate [ ] Severe [ ] Other Malnutrition (please specify) __ [ ] Underweight without malnutrition [ ] Cachexia [ ] Other diagnosis [ ] Unable to determine In addition, please specify: Present on Admission (POA): [ x] Yes [ ] No [ ] Unable to determine Physician Signature: Date/Time: For continuity of documentation, please document condition throughout progress notes and discharge summary. Thank You. To be completed by CDI/Coding staff for physician review: Present Clinical Indicators - Signs / Symptoms / Labs Results and Location in Medical Record [x] Malnutrition/underweight RD Consult 02/18 [x] BMI of 15.8 RD Consult 02/18 [x] Albumin=4.0 Total Protein=6.8 Labs 02/16 Two or More of the Following ASPEN Criteria: [x] unintentional weight loss RD Consult 02/18 [x] severe muscle wasting RD Consult 02/18 [x] moderate muscle mass loss RD Consult 02/18 Present Risk Factors Results and Location in Medical Record [x] 70 years old male HP 02/16 [x] Ischemic cardiomyopathy HP 02/16 [x] CAD HP 02/16 [x] Chronic systolic CHF HP 02/16 [x] Persistent Afib HP 02/16 [x] HTN HP 02/16 [x] NSTEMI DS 02/18 [x] Former Smoker HP 02/16 Present Treatments [x] Dietary consult RD Consult 02/18 [x] Low sodium diet RD Consult 02/18 [x] Ensure RD Consult 02/18 [x] Monitor weight loss RD Consult 02/18 [x] Monitor total protein intake RD Consult 02/18 CDS/Form Layer Signature: Asher Marks Phone #: ext [phone] Date/Time: 02/22/2020 05:55 Moderate Malnutrition (in acute illness) ? Energy Intake: <75% of estimated energy requirement for > 7 days ? Weight Loss: 1-2%/1 week; 5%/ 1 month; 7.5%/3 months ? Other: mild body fat loss; mild muscle mass loss; mild fluid accumulation; Severe Malnutrition (in acute illness) ? Energy Intake: ? 50% of estimated energy requirement for ? 5 days ? Weight Loss: >2%/1 week; >5%/1 month; >7.5%/3 months ? Other: moderate body fat loss; moderate muscle mass loss; moderate- severe fluid accumulation; measurably reduced ranch cook strength Moderate Malnutrition (in chronic illness) ? Energy Intake: <75% of estimated energy requirement for ?1 month ? Weight Loss: 5%/1 month; 7.5%/3 months; 10%/6 months; 20%/1 year ? Other: mild body fat loss; mild muscle mass loss; mild fluid accumulation Severe Malnutrition (in chronic illness) ? Energy Intake: ?75% of estimated energy requirement for ?1 month ? Weight Loss: >5%/1 month; >7.5%/3 months; >10%/6 months; >20%/1 year ? Other: severe body fat loss; severe muscle mass loss; severe fluid accumulation; measurably reduced ranch cook strength This is a permanent part of the Medical Record MTDD
== END 2020-02-19 15:59 | disposition home or self-care (01) | DRG 247 ==
LOC: ERS 14:19 → 2SE 19:32
PROVIDERS: ADMIT Internal Medicine; ATTEND Internal Medicine
PROC: 4A023N7 Measurement of Cardiac Sampling and Pressure, Left Heart, Percutaneous Approach (ICD-10-PCS; principal; 2020-02-18)
PROC: 027034Z Dilation of Coronary Artery, One Artery with Drug-eluting Intraluminal Device, Percutaneous Approach (ICD-10-PCS; 2020-02-18)
PROC: B2111ZZ Fluoroscopy of Multiple Coronary Arteries using Low Osmolar Contrast (ICD-10-PCS; 2020-02-18)
PROC: 4A033BC Measurement of Arterial Pressure, Coronary, Percutaneous Approach (ICD-10-PCS; 2020-02-18)
DX: I21.A1 Myocardial infarction type 2 (principal); I50.22 Chronic systolic (congestive) heart failure; I48.19 Other persistent atrial fibrillation; E44.0 Moderate protein-calorie malnutrition; Z68.1 Body mass index [BMI] 19.9 or less, adult; I25.110 Atherosclerotic heart disease of native coronary artery with unstable angina pectoris; I25.5 Ischemic cardiomyopathy; I08.1 Rheumatic disorders of both mitral and tricuspid valves; E05.90 Thyrotoxicosis, unspecified without thyrotoxic crisis or storm; Z20.828 Contact with and (suspected) exposure to other viral communicable diseases; J84.10 Pulmonary fibrosis, unspecified; Z95.810 Presence of automatic (implantable) cardiac defibrillator; Z79.82 Long term (current) use of aspirin; Z79.52 Long term (current) use of systemic steroids; Z79.899 Other long term (current) drug therapy; I25.2 Old myocardial infarction; Z87.891 Personal history of nicotine dependence; Z95.2 Presence of prosthetic heart valve; I11.0 Hypertensive heart disease with heart failure
CPT/HCPCS: 36415; 71046; 80048; 80053; 80061; 81001; 82553; 83735; 84439; 84443; 84484; 85025; 85347; 85379; 87635; 92928; 93005; 93010; 93458; 93798; 94760; C1874; C9600; J1644; Q9967; S0028; U0003

== ENCOUNTER 2020-06-07 12:21 | Outpatient (CLI) | payer MEDICARE | END 2020-06-07 12:22 | disposition home or self-care (01) | LOC: ULT 12:21 | PROVIDERS: ATTEND Internal Medicine Cardiovascular Disease | DX: I47.2 Ventricular tachycardia (principal); I08.1 Rheumatic disorders of both mitral and tricuspid valves | CPT/HCPCS: 93306 ==

== ENCOUNTER 2020-08-18 09:52 | Outpatient (CLI) | payer MEDICARE ==
--- NOTE | 2020-08-18 10:42 | RAD ---
EXAM: Chest PA and lateral: HISTORY: Dyspnea. COMPARISON: 02/17/2020 FINDINGS: Stable left-sided defibrillator Heart: Cardiomegaly. Aorta: Atherosclerotic Pulmonary vessels: Normal Costophrenic angles: Costophrenic angles are clear. Lungs: Stable multifocal interstitial and alveolar opacities Pneumothorax: No pneumothorax Osseous structures: No osseous abnormalities IMPRESSION: 1. No significant interval change. 2. Atherosclerosis 3. Cardiomegaly. Findings are presumed to represent chronic changes of the lung parenchyma.
[2020-08-18 12:46] VITALS: BP 112/71; TEMP 97.6
[2020-08-18 12:48] VITALS: BMI 16.0
== END 2020-08-18 09:53 | disposition home or self-care (01) ==
LOC: BICRAD 09:52
PROVIDERS: ATTEND Internal Medicine Critical Care Medicine
DX: R06.00 Dyspnea, unspecified (principal); I70.90 Unspecified atherosclerosis; I51.7 Cardiomegaly
CPT/HCPCS: 71046

== ENCOUNTER 2020-08-18 12:41 | Inpatient (IN) | payer MEDICARE ==
[2020-08-18] MEDS ORDERED: Furosemide 100 MG/10 ML VIAL SLOW IVP SCH (13:00)
[2020-08-18 13:46] LABS: Hemoglobin 11.5 g/dL (14.0-18.0); Mean Corpuscular HGB CONC 31.2 g/dL (32.0-36.0); Mean Corpuscular Hemoglobin 27.4 pg (27.0-31.0); Mean Corpuscular Volume 87.7 fL (78.0-98.0); Mean Platelet Volume 9.2 fL (7.4-10.4); Platelet Count 401 thou/uL (130-400); RBC Distribution Width 17.6 % (11.5-14.5); White Blood Cell (WBC) Count 15.6 thou/uL (4.8-10.8)
[2020-08-18 14:04] LABS: Anion Gap 20 mmol/L (10-20); BUN (Urea Nitrogen) 20 mg/dL (8.4-25.7); Calc. Creatinine Clearance 44 mL/min (70-130); Calcium 8.5 mg/dL (7.8-10.44); Carbon Dioxide 22 mmol/L (23-31); Chloride 98 mmol/L (98-107); Glucose 238 mg/dL (80-115); Potassium 3.4 mmol/L (3.5-5.1); Sodium 137 mmol/L (136-145)
[2020-08-18 14:09] LABS: Anisocytosis SLIGHT = 6-15 cells (100X) (0-5/hpf); Band 10 % (5-11); Elliptocytes SLIGHT = 2-5 cells (100X) (0-1/hpf); Hypochromia SLIGHT = 6-15 cells (100X) (0-5/hpf); Lymphocytes 2 % (21-51); MDiff Complete? YES; Monocytes 17 % (0-10); Neutrophil 70 % (42-75); Platelet Morphology Comment Appears Increased; Polychromasia SLIGHT = 2-3 cells (100X) (0-2/hpf); Schistocytes SLIGHT = 2-5 cells (100X) (0-1/hpf); Target Cells SLIGHT = 2-5 cells (100X) (0-1/hpf); Tear Drops SLIGHT = 2-5 cells (100X) (0-1/hpf)
[2020-08-18 18:28] LABS: SARS-CoV-2 PCR by NAA Not Detected (NotDetected)
[2020-08-18] MEDS: Apixaban 2.5 MG TAB PO SCH (21:40)
--- NOTE | 2020-08-19 01:10 | HP ---
HISTORY OF PRESENT ILLNESS: 08/18/2020 Mr. Patel is a very pleasant 70-year-old male with severe cardiomyopathy. He presented to the office today with complaints of hemoptysis and shortness of breath for 2 days. He is not normally on portable oxygen according to his . His sat in the office was 70 to 72. He was tachypneic. He was not confused surprisingly. He actually asked to be admitted to the hospital. I did feel like if prolonged period in the emergency room would be to his benefit, so I admitted him directly. Fortunately, there was a bed available. PAST MEDICAL HISTORY: Remarkable for; 1. Severe cardiomyopathy. 2. History of cardiac cachexia, which improved with chronic prednisone use. He gained probably about 20 pounds with an increased appetite on low-dose prednisone. 3. History of a defibrillator placement. 4. History of myocardial infarction in the past. 5. History of coronary artery disease. 6. History of hypertension. 7. History of atrial fibrillation. 8. Hypothyroidism. 9. History of recent PFTs, it showed some not surprisingly a restrictive defect. I did a chest CT back in February of last year that showed bronchiectasis and some lower lobe interstitial changes that certainly could be consistent with usual interstitial pneumonitis. He is scheduled for followup CT coming up I believe next month. FAMILY HISTORY: Negative for lung disease in early years of age. REVIEW OF SYSTEMS: Otherwise negative. SOCIAL HISTORY: He is a nonsmoker and nondrinker. LABORATORY DATA: White count 15.6, hemoglobin 11.5, platelets 401. Electrolytes are unremarkable. Potassium is 3.4, glucose 238. BNP was 1520. Chest radiograph is suggestive of pulmonary edema. IMPRESSION: Dyspnea with hypoxemia of short duration. Statistically, this most likely would be consistent with congestive heart failure. I doubt he has a diffuse bacterial pneumonia. He had COVID testing 2 weeks ago for his pulmonary function tests. They were done on the and he has not been away from the house since that time. His certainly has no symptoms and has no exposure to anyone that she is aware of that has COVID. I feel it is much more likely that this is his cardiomyopathy causing his symptoms. Hopefully, he will improve with intravenous diuresis. If he fails to improve with documented diuresis, I will consider antimicrobial therapy, but I do not feel that is the primary problem at this time. He obviously has confounding comorbidity and may have slowly progressive pulmonary fibrosis, but that is certainly not what has caused the 2-day decompensation. I will notify his learning design specialist of his admission. Job ID: [id number] MTDD
[2020-08-19 05:01] LABS: Anion Gap 16 mmol/L (10-20); BUN (Urea Nitrogen) 24 mg/dL (8.4-25.7); Calc. Creatinine Clearance 62 mL/min (70-130); Calcium 8.8 mg/dL (7.8-10.44); Carbon Dioxide 27 mmol/L (23-31); Chloride 97 mmol/L (98-107); Glucose 140 mg/dL (80-115); Potassium 3.7 mmol/L (3.5-5.1); Sodium 136 mmol/L (136-145)
[2020-08-19 05:47] LABS: Hemoglobin 10.3 g/dL (14.0-18.0); Mean Corpuscular HGB CONC 32.2 g/dL (32.0-36.0); Mean Corpuscular Volume 87.1 fL (78.0-98.0); Mean Platelet Volume 10.2 fL (7.4-10.4); Platelet Count 279 thou/uL (130-400); RBC Distribution Width 17.9 % (11.5-14.5); Red Blood Cell (RBC) Count 3.67 mill/uL (4.70-6.10); White Blood Cell (WBC) Count 14.5 thou/uL (4.8-10.8)
[2020-08-19 05:48] LABS: Band 3 % (5-11); Elliptocytes SLIGHT = 2-5 cells (100X) (0-1/hpf); Lymphocytes 8 % (21-51); MDiff Complete? YES; Monocytes 7 % (0-10); Myelocyte 1 % (0-0); Neutrophil 81 % (42-75); Target Cells SLIGHT = 2-5 cells (100X) (0-1/hpf)
[2020-08-19] MEDS: Furosemide 100 MG/10 ML VIAL SLOW IVP SCH (06:22)
[2020-08-19] MEDS: Levothyroxine 150 MCG TAB PO SCH (06:23)
--- NOTE | 2020-08-19 07:57 | RAD ---
Chest AP view INDICATION: History of CHF COMPARISON: August 18, 2020 FINDINGS: Lungs: Bilateral patchy airspace disease is stable Cardiac silhouette: Cardiomegaly is stable Pulmonary vasculature: Mild pulmonary vascular congestion is stable Pleural spaces: Enlarging small left and tiny right pleural effusions Upper abdomen: Surgical clips of the upper abdomen are stable Osseous structures: No acute osseous abnormality. Additional findings: Multi lead AICD is unchanged. No pneumothorax is evident. IMPRESSION: Stable bilateral pneumonia. Stable cardiomegaly. Increasing bilateral pleural effusions with persistent mild pulmonary vascular congestion.
--- NOTE | 2020-08-19 08:22 | CON ---
DATE OF CONSULTATION: REASON FOR CONSULTATION: [id number] systolic heart failure. HISTORY OF PRESENT ILLNESS: Mr. Patel is a very pleasant 70-year-old gentleman, who recently was seen and evaluated by Dr. Bud Rangel in his office. He had hypoxia with increased crackles noted bilaterally and felt to be consistent with acute systolic heart failure. He was therefore subsequently admitted. During my visit on 08/18/2020 Mr. Patel did appear to be short of breath. No chest pain, pressure, or associated symptoms. PAST MEDICAL HISTORY: Paroxysmal atrial fibrillation, PAD systolic heart failure, previous HI, gout, hypothyroidism, CAD. HOME MEDICATIONS: Include: 1. Plavix. 2. Indomethacin. 3. Lasix. 4. Sotalol. 5. Allopurinol. 6. Metolazone. 7. Levothyroxine. 8. Digoxin. 9. Eliquis. 10. Prednisone. 11. Iron. SURGICAL HISTORY: ICD placement; CAD, status post stent placement, femoral-popliteal bypass. SOCIAL HISTORY: No current tobacco use. REVIEW OF SYSTEMS: Ten-point review of systems is reviewed and as above, otherwise negative. PHYSICAL EXAMINATION: GENERAL: The patient is a pleasant male who is in no acute distress. The patient appears their stated age. VITAL SIGNS: Blood pressure 110/72, pulse 92, temperature 97.6. NEUROLOGIC: The patient is alert and oriented x3 with no focal neurologic deficits. HEENT: Sclerae without icterus. Mouth has moist mucous membranes with normal pallor. NECK: No JVD. Carotid upstroke brisk. No bruits bilaterally. LUNGS: Crackles noted bilaterally. BACK: No scoliosis or kyphosis. CARDIAC: Regular rate and rhythm with normal S1 and S2. No S3 or S4 noted. No significant rubs, murmurs, thrills, or gallops noted throughout the precordium. PMI is not displaced. There is no parasternal heave. ABDOMEN: Soft, nontender, nondistended. No peritoneal signs present. No hepatosplenomegaly. No abnormal striae. EXTREMITIES: 2+ femoral and 2+ dorsalis pedis pulses. No cyanosis, clubbing, or edema. SKIN: No gross abnormalities. PERTINENT LABORATORY DATA: Include hemoglobin 10.3, hematocrit 32, creatinine 0.85. BNP of 1520. IMPRESSION: 1. [id number] systolic heart failure. 2. Coronary artery disease. 3. Status post implantable cardioverter defibrillator. 4. History of myocardial infarction. RECOMMENDATIONS: Agree with IV Lasix. May consider p.o. metolazone if needed. We will make further adjustments in a.m. Continue Eliquis in addition to amiodarone. Blood pressure has been marginal and if improved, may consider adding Coreg. Job ID: [id number]
--- NOTE | 2020-08-19 08:24 | PRG ---
DATE OF SERVICE: 08/19/2020 SUBJECTIVE: Mr. Patel is doing better. He continues to complain of shortness of breath, who states he is diuresed and overall feeling improved. OBJECTIVE: VITAL SIGNS: Blood pressure 110/72, pulse 90, temperature 97.6. LUNGS: Crackles noted bilaterally. HEART: Regular rate and rhythm. ABDOMEN: Soft, nontender, nondistended. EXTREMITIES: No significant edema. PERTINENT LABORATORY DATA: Creatinine 0.85. Hemoglobin 10.3. IMPRESSION: 1. Acute on chronic systolic heart failure. 2. Implantable cardioverter defibrillator. 3. Coronary artery disease. 4. Status post stent placement. RECOMMENDATIONS: Continue current treatment with Lasix. Add low-dose metolazone x1. Continue to monitor I's and O's in addition to daily weights. Restrict sodium in addition to fluids. Consider Entresto if blood pressure tolerates. Job ID: [id number]
[2020-08-19] MEDS: Amiodarone 200 MG TAB PO SCH (09:57)
[2020-08-19] MEDS: Clopidogrel Bisulfate 75 MG TAB PO SCH (09:57)
[2020-08-19] MEDS: Allopurinol 100 MG TAB PO SCH (09:57)
[2020-08-19] MEDS: Apixaban 2.5 MG TAB PO SCH ×2 (09:57→20:43)
[2020-08-19] MEDS: predniSONE 20 MG TAB PO SCH (09:58)
[2020-08-19 14:26] VITALS: BMI 17.0
--- NOTE | 2020-08-19 14:44 | PRG ---
DATE OF SERVICE: 08/19/2020 SUBJECTIVE: The patient says he is feeling better compared to yesterday. Nursing staff is somewhat concerned about his shortness of breath. PHYSICAL EXAMINATION: VITAL SIGNS: Temperature 97.6, pulse 95, respirations in the mid 20s, O2 saturation 100% on 4 L, blood pressure 104/68. GENERAL: He appears in no acute distress. HEENT: Unremarkable. NECK: No JVD. LUNGS: Inspiratory crackles in both bases. CARDIAC: S1 and S2, regular, with 3/6 systolic murmur. ABDOMEN: Soft and nontender. EXTREMITIES: No edema. LABORATORY DATA: Sodium 137, potassium 3.7, chloride 97, CO2 of 27, BUN 24, creatinine 0.8, glucose 140. White blood cell count 14.5, hematocrit 32, and platelet count 279. His x-ray shows bilateral infiltrative changes, consistent with heart failure. ASSESSMENT: 1. Congestive heart failure - acute systolic. 2. Question concurrent pneumonia. PLAN: In addition to the diuretics, I will add an antibiotic. Job ID: [id number]
[2020-08-19] MEDS: Cefdinir 300 MG CAP PO SCH (17:25)
[2020-08-20 05:30] LABS: Chloride 97 mmol/L (98-107); Potassium 4.7 mmol/L (3.5-5.1); Sodium 130 mmol/L (136-145)
[2020-08-20 05:31] LABS: Calcium 8.9 mg/dL (7.8-10.44); Glucose 142 mg/dL (80-115)
[2020-08-20 05:33] LABS: Carbon Dioxide 19 mmol/L (23-31)
[2020-08-20 05:35] LABS: BUN (Urea Nitrogen) 31 mg/dL (8.4-25.7); Calc. Creatinine Clearance 71 mL/min (70-130)
[2020-08-20] MEDS: Levothyroxine 150 MCG TAB PO SCH (06:13)
[2020-08-20] MEDS: Furosemide 100 MG/10 ML VIAL SLOW IVP SCH (06:13)
[2020-08-20 06:14] LABS: Anion Gap 19 mmol/L (10-20)
[2020-08-20 06:33] LABS: Band 7 % (5-11); Hemoglobin 10.3 g/dL (14.0-18.0); Lymphocytes 9 % (21-51); MDiff Complete? YES; Mean Corpuscular HGB CONC 31.2 g/dL (32.0-36.0); Mean Corpuscular Hemoglobin 27.5 pg (27.0-31.0); Mean Corpuscular Volume 88.3 fL (78.0-98.0); Mean Platelet Volume 9.5 fL (7.4-10.4); Monocytes 4 % (0-10); Neutrophil 78 % (42-75); Platelet Count 331 thou/uL (130-400); RBC Distribution Width 17.3 % (11.5-14.5); Reactive Lymphocytes 2 % (0-10); Red Blood Cell (RBC) Count 3.74 mill/uL (4.70-6.10); White Blood Cell (WBC) Count 11.8 thou/uL (4.8-10.8)
[2020-08-20] MEDS: predniSONE 20 MG TAB PO SCH (09:40)
[2020-08-20] MEDS: Allopurinol 100 MG TAB PO SCH (09:40)
[2020-08-20] MEDS: Clopidogrel Bisulfate 75 MG TAB PO SCH (09:40)
[2020-08-20] MEDS: Amiodarone 200 MG TAB PO SCH (09:41)
[2020-08-20] MEDS: Apixaban 2.5 MG TAB PO SCH (09:41)
--- NOTE | 2020-08-20 15:59 | PRG ---
DATE OF SERVICE: 08/20/2020 SUBJECTIVE: There were couple of issues with Mr. Patel today. He had a large run of ventricular tachycardia, for which the industrial hygienist was notified. He is also having some hemoptysis, which is new. Of note, he is currently taking Plavix and Eliquis. He has a history of a stent placement in the past. OBJECTIVE: VITAL SIGNS: His temperature is 97.6, pulse 87, respirations 16, O2 saturation 97% on 3 L, blood pressure 102/71. His current weight is listed as 109 pounds. His admission weight was listed as 125 pounds, but I doubt he has lost 16 pounds in the last day. HEENT: Unremarkable. NECK: No adenopathy or JVD. LUNGS: He has inspiratory crackles in both bases. CARDIAC: S1 and S2, regular. ABDOMEN: Soft. EXTREMITIES: No edema. LABORATORY DATA: White blood cell count 11.8, hematocrit 33, and platelet count 331. Sodium 130, potassium 4.7, chloride 97, CO2 of 19, BUN 31, creatinine 0.7, glucose 142. ASSESSMENT: 1. Systolic heart failure. 2. Hemoptysis, which could be from anticoagulation, could be from some type of pneumonitis. PLAN: We are continuing diuresis. I am somewhat concerned about the developing hyponatremia as that is fairly rare with Lasix. We will recheck his electrolytes tomorrow. His Eliquis will be held. We may need to consider holding his Plavix if that is okay with Cardiology. Job ID: [id number]
--- NOTE | 2020-08-20 16:46 | PDOC.CPN ---
- Subjective Date: 08/20/20 Time: 16:44 Interval history: Better today. Breathing improving. - Review of Systems General: reports: fatigue. denies: fever/chills, weight/appetite/sleep changes, night sweats Respiratory: reports: shortness of breath. denies: cough, congestion, exercise intolerance Cardiovascular: denies: chest pain, palpitation, edema, paroxysmal nocturnal dyspnea, orthopnea Gastrointestinal: denies: nausea, vomiting, diarrhea, constipation, abd pain, GI bleeding Musculoskeletal: denies: pain, tenderness, stiffness, swelling, arthriti s/arthralgias Neurological: denies: numbness, syncope, seizure, weakness - Objective Allergies/Adverse Reactions: Allergies Allergy/AdvReac Type Severity Reaction Status Date / Time lidocaine AdvReac Severe Verified 08/18/20 12:49 Visit Medications: Current Medications Allopurinol (Allopurinol 100 Mg Tab) 100 mg PO DAILY [facility] Last Admin: 08/20/20 09:40 Dose: 100 mg Documented by: Amiodarone HCl (Amiodarone 200 Mg Tab) 200 mg PO DAILY [facility] Last Admin: 08/20/20 09:41 Dose: 200 mg Documented by: Cefdinir (Cefdinir 300 Mg Cap) 600 mg PO 1800 [facility] Last Admin: 08/19/20 17:25 Dose: 600 mg Documented by: Clopidogrel Bisulfate (Clopidogrel Bisulfate 75 Mg Tab) 75 mg PO DAILY [facility] Last Admin: 08/20/20 09:40 Dose: 75 mg Documented by: Furosemide (Furosemide 100 Mg/10 Ml Vial) 60 mg SLOW IVP 0600 [facility] Last Admin: 08/20/20 06:13 Dose: 60 mg Documented by: Levothyroxine Sodium (Levothyroxine 150 Mcg Tab) 150 mcg PO 0600 [facility] Last Admin: 08/20/20 06:13 Dose: 150 mcg Documented by: Prednisone (Prednisone 20 Mg Tab) 40 mg PO QAM [facility] Last Admin: 08/20/20 09:40 Dose: 40 mg Documented by: Sodium Chloride (Flush - Normal Saline 10 Ml Syringe) 10 ml IVF Q12HR [facility] Last Admin: 08/20/20 09:41 Dose: 10 ml Documented by: Sodium Chloride (Flush - Normal Saline 10 Ml Syringe) 10 ml IVF PRN PRN PRN Reason: Saline Flush Vital Signs & Weight: Vital Signs Temp Pulse Resp BP Pulse Ox 08/20/20 16:04 98.2 F 90 16 128/70 98 08/20/20 11:43 97.6 F 87 16 102/71 97 08/20/20 09:23 97.5 F L 89 16 119/83 96 Admit Weight 118 lb Weight 109 lb - Physical Exam General: alert & oriented x3 HEENT: mucus membranes moist Neck: supple neck Cardiac: regular rate and rhythm Lungs: normal breath sounds Neuro: no lateralizing findings Abdomen: active bowel sounds Extremities: no edema Skin: clear Musculoskeletal: no pain - Labs Result Diagrams: 08/20/20 04:21 08/20/20 04:21 - Telemetry Sinus rhythms and dysrhythmias: other (BiV paced) - Assessment/Plan Assessment/Plan: 1. Acute on chronic systolic heart failure 2. AICD in place 3. CAD with stent placement in the past 4. Ischemic CM PLAN: - Continua IV diuresis with PO metolazone. - BP still borderline low for Entresto.
[2020-08-20] MEDS: Cefdinir 300 MG CAP PO SCH (17:50)
[2020-08-21 05:22] LABS: Anion Gap 14 mmol/L (10-20); BUN (Urea Nitrogen) 36 mg/dL (8.4-25.7); Calc. Creatinine Clearance 57 mL/min (70-130); Calcium 8.7 mg/dL (7.8-10.44); Carbon Dioxide 33 mmol/L (23-31); Chloride 93 mmol/L (98-107); Glucose 144 mg/dL (80-115); Potassium 3.9 mmol/L (3.5-5.1); Sodium 136 mmol/L (136-145)
[2020-08-21 06:05] LABS: Anisocytosis SLIGHT = 6-15 cells (100X) (0-5/hpf); Elliptocytes SLIGHT = 2-5 cells (100X) (0-1/hpf); Lymphocytes 11 % (21-51); MDiff Complete? YES; Mean Corpuscular HGB CONC 31.9 g/dL (32.0-36.0); Mean Corpuscular Hemoglobin 27.6 pg (27.0-31.0); Mean Corpuscular Volume 86.6 fL (78.0-98.0); Mean Platelet Volume 9.6 fL (7.4-10.4); Monocytes 2 % (0-10); Neutrophil 87 % (42-75); Platelet Count 331 thou/uL (130-400); Poikilocytosis SLIGHT = 6-15 cells (100X) (0-5/hpf); RBC Distribution Width 17.1 % (11.5-14.5); Red Blood Cell (RBC) Count 3.63 mill/uL (4.70-6.10); Schistocytes SLIGHT = 2-5 cells (100X) (0-1/hpf); Target Cells SLIGHT = 2-5 cells (100X) (0-1/hpf); Tear Drops SLIGHT = 2-5 cells (100X) (0-1/hpf); White Blood Cell (WBC) Count 11.5 thou/uL (4.8-10.8)
[2020-08-21] MEDS: Levothyroxine 150 MCG TAB PO SCH (06:13)
[2020-08-21] MEDS: Furosemide 100 MG/10 ML VIAL SLOW IVP SCH (06:13)
[2020-08-21] MEDS: Allopurinol 100 MG TAB PO SCH (09:17)
[2020-08-21] MEDS: Clopidogrel Bisulfate 75 MG TAB PO SCH (09:18)
[2020-08-21] MEDS: predniSONE 20 MG TAB PO SCH (09:18)
[2020-08-21] MEDS: Amiodarone 200 MG TAB PO SCH (09:18)
[2020-08-21 15:34] LABS: Anion Gap 17 mmol/L (10-20); BUN (Urea Nitrogen) 37 mg/dL (8.4-25.7); Calc. Creatinine Clearance 53 mL/min (70-130); Calcium 8.5 mg/dL (7.8-10.44); Carbon Dioxide 30 mmol/L (23-31); Chloride 91 mmol/L (98-107); Glucose 224 mg/dL (80-115); Potassium 3.8 mmol/L (3.5-5.1); Sodium 134 mmol/L (136-145)
--- NOTE | 2020-08-21 15:38 | PRG ---
DATE OF SERVICE: 08/21/2020 SUBJECTIVE: He feels better. He says his shortness of breath has improved. He is in much better spirits. OBJECTIVE: VITAL SIGNS: His temperature 98.6, pulse 80, respirations in the 20s, O2 saturation 98% on 3 L, and blood pressure 112/75. HEENT: Unremarkable. NECK: No adenopathy or JVD. LUNGS: Fairly clear. CARDIAC: S1, S2. Regular. ABDOMEN: Soft. EXTREMITIES: No edema. LABORATORY DATA: Sodium 136, potassium 3.9, BUN 36, creatinine 0.8, and glucose 117. White blood cell count 11.5, hematocrit 31.4, and platelet count 331. ASSESSMENT: Systolic heart failure, possible concurrent pneumonia. PLAN: I will go ahead and cut his steroid dose down. We will continue the Omnicef. I will decrease his Lasix dose. I think he can probably go home tomorrow morning. Job ID: [id number]
--- NOTE | 2020-08-21 16:09 | PDOC.CPN ---
- Subjective Date: 08/21/20 Time: 16:08 Interval history: Doing better today. Breathing better than yesterday. - Review of Systems General: denies: fever/chills, weight/appetite/sleep changes, night sweats, fatigue Respiratory: reports: cough, shortness of breath, exercise intolerance. denies: congestion Cardiovascular: denies: chest pain, palpitation, edema, paroxysmal nocturnal dyspnea, orthopnea Gastrointestinal: denies: nausea, vomiting, diarrhea, constipation, abd pain, GI bleeding Musculoskeletal: denies: pain, tenderness, stiffness, swelling, arthritis/arthralgias Neurological: denies: numbness, syncope, seizure, weakness - Objective Allergies/Adverse Reactions: Allergies Allergy/AdvReac Type Severity Reaction Status Date / Time lidocaine AdvReac Severe Verified 08/18/20 12:49 Visit Medications: Current Medications Allopurinol (Allopurinol 100 Mg Tab) 100 mg PO DAILY [facility] Last Admin: 08/21/20 09:17 Dose: 100 mg Documented by: Amiodarone HCl (Amiodarone 200 Mg Tab) 200 mg PO DAILY [facility] Last Admin: 08/21/20 09:18 Dose: 200 mg Documented by: Cefdinir (Cefdinir 300 Mg Cap) 600 mg PO 1800 [facility] Last Admin: 08/20/20 17:50 Dose: 600 mg Documented by: Clopidogrel Bisulfate (Clopidogrel Bisulfate 75 Mg Tab) 75 mg PO DAILY [facility] Last Admin: 08/21/20 09:18 Dose: 75 mg Documented by: Furosemide (Furosemide 20 Mg Tab) 40 mg PO 0900 [facility] Levothyroxine Sodium (Levothyroxine 150 Mcg Tab) 150 mcg PO 0600 [facility] Last Admin: 08/21/20 06:13 Dose: 150 mcg Documented by: Prednisone (Prednisone 20 Mg Tab) 20 mg PO QAM [facility] Sodium Chloride (Flush - Normal Saline 10 Ml Syringe) 10 ml IVF Q12HR [facility] Last Admin: 08/21/20 09:23 Dose: 10 ml Documented by: Sodium Chloride (Flush - Normal Saline 10 Ml Syringe) 10 ml IVF PRN PRN PRN Reason: Saline Flush Vital Signs & Weight: Vital Signs Temp Pulse Resp BP Pulse Ox 08/21/20 11:45 96 F L 88 32 H 112/75 98 08/21/20 07:35 97.8 F 87 24 H 121/87 98 Admit Weight 118 lb Weight 111 lb - Physical Exam General: alert & oriented x3 HEENT: mucus membranes moist Neck: supple neck Cardiac: regular rate and rhythm Lungs: wheezes Neuro: grossly intact Abdomen: active bowel sounds Extremities: no edema Skin: clear Musculoskeletal: no pain - Labs Result Diagrams: 08/21/20 04:02 08/21/20 15:02 - Telemetry Sinus rhythms and dysrhythmias: other (BiV paced) - Assessment/Plan Assessment/Plan: 1. Acute on chronic systolic heart failure 2. AICD in place 3. CAD with stent placement in the past 4. Ischemic CM PLAN: - Agree with PO dose of lasix. - Significantly improved volume status. - Home soon.
[2020-08-21] MEDS: Cefdinir 300 MG CAP PO SCH (17:03)
[2020-08-22] MEDS: Levothyroxine 150 MCG TAB PO SCH (05:27)
[2020-08-22] MEDS: Allopurinol 100 MG TAB PO SCH (08:18)
[2020-08-22] MEDS: predniSONE 20 MG TAB PO SCH (08:18)
[2020-08-22] MEDS: Clopidogrel Bisulfate 75 MG TAB PO SCH (08:18)
[2020-08-22] MEDS: Furosemide 20 MG TAB PO SCH (08:18)
[2020-08-22] MEDS: Amiodarone 200 MG TAB PO SCH (08:18)
--- NOTE | 2020-08-22 09:16 | PRG ---
DATE OF SERVICE: 08/22/2020 SUBJECTIVE: Mr. Patel is doing well. No current complaints. He states he is back to baseline. He has had significant diuresis over the weekend. OBJECTIVE: VITAL SIGNS: Blood pressure 113/88, pulse 85, temperature 96.7. Current weight 115 pounds, down from 125. LUNGS: Minimal crackles bilaterally. HEART: Regular rate and rhythm. ABDOMEN: Soft, nontender, and nondistended. EXTREMITIES: No edema. LABORATORY DATA: Hemoglobin 10 and hematocrit 31.4. Creatinine 0.93. IMPRESSION: 1. Znyok-bi-cvyfgsw systolic heart failure. 2. Coronary artery disease. 3. Status post stent placement. 4. Status post ventricular tachycardia ablation. RECOMMENDATIONS: Mr. Patel is currently doing better. We will continue current medical therapy. I did queen's counsel him on fluid restriction, salt restriction, and daily weights. The patient will be discharged today. Plan is to follow up within a week in the office. Job ID: [id number]
[2020-08-22] MEDS: Cefdinir 300 MG CAP PO SCH (19:25)
[2020-08-23] MEDS: Levothyroxine 150 MCG TAB PO SCH (05:59)
[2020-08-23] MEDS: predniSONE 20 MG TAB PO SCH (09:05)
[2020-08-23] MEDS: Clopidogrel Bisulfate 75 MG TAB PO SCH (09:05)
[2020-08-23] MEDS: Furosemide 20 MG TAB PO SCH (09:05)
[2020-08-23] MEDS: Allopurinol 100 MG TAB PO SCH (09:05)
[2020-08-23] MEDS: Amiodarone 200 MG TAB PO SCH (09:06)
[2020-08-23 12:21] VITALS: BP 126/81; TEMP 97.4
--- NOTE | 2020-08-24 08:06 | DIS ---
DATE OF ADMISSION: 08/18/2020 DATE OF DISCHARGE: 08/23/2020 DIAGNOSES: 1. Hypoxemia on room air. He has resting saturation of 85 that increases to 94% on 2 L/minute. 2. Congestive heart failure that is chronic. 3. History of atrial fibrillation. 4. History of ventricular tachycardia in the past. 5. History of systolic heart failure with a previous myocardial infarction. 6. History of gout. 7. History of hypothyroidism. 8. History of cardiac cachexia that responded well to low-dose prednisone. 9. Probable interstitial lung disease/early usual interstitial pneumonitis. 10. Hemoptysis, possibly secondary to tracheobronchial infection versus congestive heart failure. HOSPITAL COURSE: Please see history and physical for details. Briefly, Mr. Patel presented to the office tachypneic, hypoxic, and short of breath. Room air sat was 70 in the office. He was admitted, diuresed, started on his other medications and eventually given antibiotics. He says he is 100% better and ready to go home. We will try to arrange portable oxygen concentrator for him, then he will be discharged home. He will take Omnicef 300 twice a day for another week, prednisone 20 mg for another four days and then go to 10 mg a day. He will follow up with me in 6 to 8 weeks. Job ID: [id number]
== END 2020-08-23 15:55 | disposition home or self-care (01) | DRG 291 ==
LOC: 2NO 12:50
PROVIDERS: ADMIT Internal Medicine Critical Care Medicine; ATTEND Internal Medicine Critical Care Medicine
DX: I11.0 Hypertensive heart disease with heart failure (principal); J18.9 Pneumonia, unspecified organism; R04.2 Hemoptysis; I25.10 Atherosclerotic heart disease of native coronary artery without angina pectoris; Z20.822 Contact with and (suspected) exposure to COVID-19; E03.9 Hypothyroidism, unspecified; I48.0 Paroxysmal atrial fibrillation; I50.23 Acute on chronic systolic (congestive) heart failure; M10.9 Gout, unspecified; I25.5 Ischemic cardiomyopathy; I73.9 Peripheral vascular disease, unspecified; I25.2 Old myocardial infarction; Z95.810 Presence of automatic (implantable) cardiac defibrillator; Z95.5 Presence of coronary angioplasty implant and graft; Z79.52 Long term (current) use of systemic steroids; Z79.02 Long term (current) use of antithrombotics/antiplatelets
CPT/HCPCS: 36415; 36416; 71045; 71046; 80048; 83880; 85025; 87635; 90471; 90732; G0009; J1940; J7512; U0003; U0005

== ENCOUNTER 2020-08-24 13:28 | Inpatient (IN) | payer MEDICARE ==
--- NOTE | 2020-08-24 13:59 | RAD ---
PORTABLE CHEST: Date: 08/24/2020 HISTORY: Chest pain. COMPARISON: 08/19/2020 study. FINDINGS: Heart size is enlarged. Chronic lung changes are seen. There are patchy bilateral lung changes, more peripheral in orientation. There is apical pleural thickening bilaterally. IMPRESSION: Cardiomegaly with some mild vascular engorgement, also with some patchy focal infiltrative-appearing lung changes, more peripheral in orientation, and somewhat increased as compared to the previous exam . I would favor this as a multifocal pneumonia such as COVID. POS: NATASHA
[2020-08-24 14:44] LABS: Hemoglobin 10.5 g/dL (14.0-18.0); Mean Corpuscular HGB CONC 31.5 g/dL (32.0-36.0); Mean Corpuscular Hemoglobin 27.3 pg (27.0-31.0); Mean Corpuscular Volume 86.7 fL (78.0-98.0); Mean Platelet Volume 10.1 fL (7.4-10.4); Platelet Count 249 thou/uL (130-400); RBC Distribution Width 17.9 % (11.5-14.5); Red Blood Cell (RBC) Count 3.82 mill/uL (4.70-6.10); White Blood Cell (WBC) Count 21.4 thou/uL (4.8-10.8)
[2020-08-24 15:00] LABS: ALT (SGPT) 1267 U/L (8-55); AST (SGOT) 1837 U/L (5-34); Alkaline Phosphatase 129 U/L (40-110); Anion Gap 23 mmol/L (10-20); BUN (Urea Nitrogen) 72 mg/dL (8.4-25.7); Bilirubin, Total 3.3 mg/dL (0.2-1.2); Calc. Creatinine Clearance 0 mL/min (70-130); Calcium 8.8 mg/dL (7.8-10.44); Carbon Dioxide 27 mmol/L (23-31); Chloride 89 mmol/L (98-107); Globulin 3.7 g/dL (2.4-3.5); Glucose 109 mg/dL (80-115); Potassium 5.3 mmol/L (3.5-5.1); Protein, Total 6.7 g/dL (5.8-8.1); Sodium 134 mmol/L (136-145)
[2020-08-24 15:06] LABS: Anisocytosis SLIGHT = 6-15 cells (100X) (0-5/hpf); Band 9 % (5-11); Elliptocytes SLIGHT = 2-5 cells (100X) (0-1/hpf); Hypochromia SLIGHT = 6-15 cells (100X) (0-5/hpf); Lymphocytes 6 % (21-51); MDiff Complete? YES; Monocytes 8 % (0-10); Neutrophil 75 % (42-75); Nucleated RBC 3 % (0); Platelet Morphology Comment Appears Adequate; Polychromasia MODERATE = 3-4 cells (100X) (0-2/hpf); Reactive Lymphocytes 2 % (0-10); Schistocytes SLIGHT = 2-5 cells (100X) (0-1/hpf); Target Cells SLIGHT = 2-5 cells (100X) (0-1/hpf); Tear Drops SLIGHT = 2-5 cells (100X) (0-1/hpf)
[2020-08-24 15:22] LABS: CKMB 3.5 ng/mL (0-6.6)
[2020-08-24] MEDS ORDERED: Morphine 4 MG/ML VIAL ONE (15:57)
[2020-08-24 16:30] LABS: SARS-CoV-2 NAA Rapid Test Not Detected (NotDetected)
[2020-08-24 17:19] LABS: Troponin I 0.222 ng/mL (< 0.028)
--- NOTE | 2020-08-24 17:58 | PDOC.HHP ---
Hospitalist HPI shortness of breath History of Present Illness: This is a 70 year old male patient with history of CHF, atrial fibrillation, vtach, hypothyroidism, interstitial lung disease on 4L of oxygen who presented to the hospital with shortness of breath. He has been short of breath for the past 1-2 days and has been unable to get out of bed due to his shortness of breath. He reports orthopnea, but no leg swelling. He has an occasional dry cough. He reports chest pain at rest, on exertion, and while taking a deep jonny ath. He denies fevers, or chills. He reports dizziness, lightheadedness and some palpitations (but says yes to everything). He was admitted to the hospital on 08/18 for bilateral pneumonia and CHF and was discharged yesterday with a prescription for cefdinir and prednisone. He states he was compliant with his medicine. He has not been eating the past few days and only has been drinking liquid due to diminished appetite ED Course: When he presented to the ER, he was 100% on 4L of oxygen with a respiratory rate of 26. Temp was normal. He was placed on a non-rebreather in the ER. EKG showed AV paced rhythm. Chest x ray shows cardiomegaly with mild vascular engorgement, patchy focal infiltrate. Allergies/Adverse Reactions: Allergy/AdvReac Type Severity Reaction Status Date / Time lidocaine AdvReac Severe Verified 08/18/20 12:49 Home Medications: Medication Instructions Recorded Confirmed Type Furosemide [Lasix] 40 mg PO DAILY 09/30/19 08/18/20 History Clopidogrel Bisulfate [Plavix] 75 mg PO DAILY 30 Days #30 tab 02/19/20 08/18/20 Rx Amiodarone [Cordarone] 200 mg PO DAILY 08/18/20 08/18/20 History Apixaban [Eliquis] 2.5 mg PO BID 08/18/20 08/18/20 History Allopurinol [Zyloprim] 100 mg PO DAILY tablet 08/22/20 Rx Cefdinir [Omnicef] 600 mg PO 1800 7 Days cap 08/22/20 Rx Levothyroxine Sodium [Synthroid] 150 mcg PO 0600 tab 08/22/20 Rx predniSONE 20 mg PO QAM 4 Days tab 08/22/20 Rx Past History: PMHx: Pulmonary fibrosis Vtach Atrial fibrillation s/p ablation Severe CAD Systolic heart failure Pulmonary fibrosis Hypothyroidism PSHx: Single chamber ICD 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 Don't drink alcohol or do drugs. Hospitalist HPI ROS Constitutional: denies: fever, chills Eyes: denies: pain, other ENT: denies: ear pain, ear discharge Cardiovascular: reports: chest pain, palpitations, orthopnea, paroxysmal noc. dyspnea. denies: light headedness Gastrointestinal: denies: nausea, vomiting, abdominal pain, diarrhea Genitourinary: denies: dysuria Skin: denies: rash, lesions Hospitalist Exam General Appearance: NAD General - other findings: cachexic, laying in bed with nonrebreather Eye: PERRL, anicteric sclera ENT: normocephalic atraumatic, no oropharyngeal lesions Neck: no JVD Heart: RRR, no murmur, no gallops, no rubs Respiratory: CTAB, no wheezes, no rales, no ronchi Respiratory - other findings: diminished breath sounds bilaterally Gastrointestinal: soft, non-tender, non-distended, normal bowel sounds, no hepatomegaly Extremities: no cyanosis, no clubbing, no edema Skin: normal turgor, no lesions, no rashes Neurological: cranial nerve grossly intact, normal sensation to touch, no weakness Musculoskeletal: normal tone, normal strength, no muscle wasting Psychiatric: normal affect, normal behavior, A&O x 3 Hospitalist Results Result Diagrams: 08/24/20 13:33 08/24/20 13:33 Lab results: Laboratory Last Values WBC 21.4 thou/uL (4.8-10.8) H 08/24/20 13:33 RBC 3.82 mill/uL (4.70-6.10) L 08/24/20 13:33 Hgb 10.5 g/dL (14.0-18.0) L 08/24/20 13:33 Hct 33.2 % (42.0-52.0) L 08/24/20 13:33 MCV 86.7 fL (78.0-98.0) 08/24/20 13:33 MCH 27.3 pg (27.0-31.0) 08/24/20 13:33 MCHC 31.5 g/dL (32.0-36.0) L 08/24/20 13:33 RDW 17.9 % (11.5-14.5) H 08/24/20 13:33 Plt Count 249 thou/uL (130-400) 08/24/20 13:33 MPV 10.1 fL (7.4-10.4) 08/24/20 13:33 Neutrophils % (Manual) 75 % (42-75) 08/24/20 13:33 Band Neuts % (Manual) 9 % (5-11) 08/24/20 13:33 Lymphocytes % (Manual) 6 % (21-51) L 08/24/20 13:33 Reactive Lymphs % 2 % (0-10) 08/24/20 13:33 Monocytes % (Manual) 8 % (0-10) 08/24/20 13:33 Lymphocytes # Not Reportable 08/24/20 13:33 Nucleated RBCs # (Man) 3 % (0) H 08/24/20 13:33 Hypochromia SLIGHT = 6-15 cells (100X) (0-5/hpf) 08/24/20 13:33 Plt Morphology Comment Appears Adequate 08/24/20 13:33 Polychromasia MODERATE = 3-4 cells (100X) (0-2/hpf) H 08/24/20 13:33 Anisocytosis SLIGHT = 6-15 cells (100X) (0-5/hpf) 08/24/20 13:33 Target Cells SLIGHT = 2-5 cells (100X) (0-1/hpf) 08/24/20 13:33 Tear Drop Cells SLIGHT = 2-5 cells (100X) (0-1/hpf) 08/24/20 13:33 Elliptocytes SLIGHT = 2-5 cells (100X) (0-1/hpf) 08/24/20 13:33 Acanthocytes (Spur) SLIGHT = 1-5 cells (100X) (None Seen) 08/24/20 13:33 Schistocytes SLIGHT = 2-5 cells (100X) (0-1/hpf) 08/24/20 13:33 Sodium 134 mmol/L (136-145) L 08/24/20 13:33 Potassium 5.3 mmol/L (3.5-5.1) H 08/24/20 13:33 Chloride 89 mmol/L (98-107) L 08/24/20 13:33 Carbon Dioxide 27 mmol/L (23-31) 08/24/20 13:33 Anion Gap 23 mmol/L (10-20) H 08/24/20 13:33 BUN 72 mg/dL (8.4-25.7) H 08/24/20 13:33 Creatinine 1.62 mg/dL (0.7-1.3) H 08/24/20 13:33 Estimated GFR (MDRD) 42 08/24/20 13:33 Glucose 109 mg/dL (80-115) 08/24/20 13:33 Calcium 8.8 mg/dL (7.8-10.44) 08/24/20 13:33 Total Bilirubin 3.3 mg/dL (0.2-1.2) H 08/24/20 13:33 AST 1837 U/L (5-34) H 08/24/20 13:33 ALT 1267 U/L (8-55) H 08/24/20 13:33 Alkaline Phosphatase 129 U/L (40-110) H 08/24/20 13:33 CK-MB (CK-2) 3.5 ng/mL (0-6.6) 08/24/20 13:33 Troponin I 0.222 ng/mL (< 0.028) H 08/24/20 16:43 Serum Total Protein 6.7 g/dL (5.8-8.1) 08/24/20 13:33 Albumin 3.0 g/dL (3.4-4.8) L 08/24/20 13:33 Globulin 3.7 g/dL (2.4-3.5) H 08/24/20 13:33 Albumin/Globulin Ratio 0.8 g/dL (1.2-2.2) L 08/24/20 13:33 Influenza A RNA INAAT Not Detected (NotDetected) 08/24/20 15:44 Influenza B RNA INAAT Not Detected (NotDetected) 08/24/20 15:44 SARS-CoV-2 Rap RNA(RT-PCR) Not Detected (NotDetected) 08/24/20 15:44 Hospitalist H&P A/P Plan: Chest X ray: cardiomegaly with mild vascular engorgement. Patchy focal infiltrate possibly multifocal pneumonia This is a 70 year old male with past medical history of heart failure, pulmonary fibrosis, severe CAd who presents with worsening shortness of breath. Acute hypoxic respiratory failure possibly secondary to pneumonia vs pulmonary fibrosis vs heart failure - chest X ray so possible multifocal pneumonia with some cardiomegaly and mild vascular engorgement. Will check CT chest given history of pulmonary fibrosis. COVID negative - will start IV steroids - WBC 21, will start on IV zosyn . Check BNP - consult pulmonary in the am Systolic heart failure - last EF 15-20%. Will check BNP Appears very dry so will hold lasix Transaminitis - possibly shock liver. AST 1837, ALT 1267. Will hydrate with fluids gently Acute renal failure - creatiine is up to 1.6. Will hydrate with IV fluids. Will check UA. Repeat BMP tomorrow #Atrial fibrillation s/p ablation #Vtach s/p ICD - continue eliquis and amiodarone Severe malnutrition - nutrition consult. Will consult palliative care, patient appears very frail DVT prophylaxis: heparin SC Code status: DNR/DNI Disposition: admit to tele. Patient v
[2020-08-24] MEDS ORDERED: methylPREDNISolone Sod Succ 40 MG VIAL IVP SCH (18:15)
[2020-08-24] MEDS ORDERED: Sodium Chloride 0.9% 1,000 ML IV SCH (18:30)
[2020-08-24] MEDS ORDERED: methylPREDNISolone Sod Succ 40 MG VIAL ONE (18:49)
--- NOTE | 2020-08-24 18:54 | CT ---
CT OF CHEST PERFORMED WITHOUT CONTRAST ENHANCEMENT: 08/24/20 HISTORY: Progressive dyspnea, severe shortness of breath, pulmonary fibrosis. COMPARISON: An 03/01/20 CT study. Extensive interstitial fibrotic lung changes are seen. Superimposed on these findings are reticular a nd ground glass infiltrative lung changes. Small bilateral pleural effusions are present. The thoracic aorta is normal in caliber. No significant mediastinal adenopathy is appreciated. The visualized liver parenchyma shows no focal findings. Increased attenuation to the gallbladder is what is typically seen after contrast administration. I do not have any history of contrast administr ation. Pancreas is very atrophic. IMPRESSION: Interstitial fibrotic lung change with superimposed ground glass infiltrates slightly suspicious for COVID pneumonia. Small bilateral pleural effusions, left larger than right. POS: NATASHA
[2020-08-24 20:21] LABS: Troponin I 0.288 ng/mL (< 0.028)
[2020-08-24] MEDS ORDERED: Apixaban 2.5 MG TAB PO SCH (21:00)
[2020-08-24 23:21] VITALS: BMI 14.8
[2020-08-24 23:22] VITALS: BP 99/49; TEMP 97.9
[2020-08-24] MEDS ORDERED: Piperacillin/Tazobactam 3.375 GM in Sodium Chloride 0.9% 100 ML IVPB SCH (23:59)
[2020-08-25] MEDS ORDERED: Levothyroxine 150 MCG TAB PO SCH (06:00)
[2020-08-25] MEDS ORDERED: Amiodarone 200 MG TAB PO SCH (09:00)
[2020-08-25] MEDS ORDERED: Allopurinol 100 MG TAB PO SCH (09:00)
[2020-08-25] MEDS ORDERED: methylPREDNISolone Sod Succ 40 MG VIAL IVP SCH (09:00)
[2020-08-25] MEDS ORDERED: Clopidogrel Bisulfate 75 MG TAB PO SCH (09:00)
[2020-08-25] MEDS ORDERED: FLU VACC QS2020-21(65YR UP)/PF 240 MCG/0.7 ML SYRINGE IM ONE (21:00)
--- NOTE | 2020-08-27 20:42 | EKG ---
Test Reason : Blood Pressure : / mmHG Vent. Rate : 093 BPM Atrial Rate : 093 BPM P-R Int : 128 ms QRS Dur : 190 ms QT Int : 456 ms P-R-T Axes : 040 037 -55 degrees QTc Int : 566 ms Atrial-sensed ventricular-paced rhythm Abnormal ECG Confirmed by STORM NEGRO, MICHELLE ([id number]), legal editor AN REAGAN ([id number]) on 08/27/2020 8:41:58 PM Referred By: Confirmed By:MICHELLE INMAN MD
--- NOTE | 2020-08-27 20:42 | EKG ---
Test Reason : CHEST PAIN Blood Pressure : / mmHG Vent. Rate : 092 BPM Atrial Rate : 092 BPM P-R Int : 128 ms QRS Dur : 172 ms QT Int : 452 ms P-R-T Axes : 023 036 -62 degrees QTc Int : 558 ms Atrial-sensed ventricular-paced rhythm Abnormal ECG Confirmed by STORM NEGRO, MICHELLE ([id number]), website/blog editor AN REAGAN ([id number]) on 08/27/2020 8:42:03 PM Referred By: Confirmed By:MICHELLE INMAN MD
--- NOTE | 2020-08-30 12:47 | PDOC.DS.DS ---
Provider Date of Admission: 08/24/20 16:12 Date of Discharge: 08/25/20 Admitting Provider: Yeny Ogden MD Primary Care Physician: Joao Power MD Course Hospital Course: Brief HPI: This is a 70 year old male patient with history of CHF, atrial fibrillation, vtach, hypothyroidism, interstitial lung disease on 4L of oxygen who presented to the hospital with shortness of breath for the past 1-2 days and he has been unable to get out of bed. He reported chest pain, denied fevers, chills, and had an occasional dry cough. He was discharged from the hospital one day prior with cefdinir and prednisone. He has been unable to eat or drink for the past few days. The patient was found to have a WBC of 21, potassium of 5.3, creatinine of 1.62, AST and ALT > 1000. He was admitted for further workup. #Acute hypoxic respiratory failure possibly secondary to pneumonia vs pulmonary fibrosis vs heart failure: #Transaminitis #Acute renal failure #Severe Malnutrition - chest X ray showed multifocal pneumonia vs mild pulmonary edema. CT chest was ordered given history of pulmonary fibrosis which showed extensive fibrotic lung changes and small bilateral effusions. He was started on IV zosyn and steroids. Given severe dehydration he was hydrated with gentle fluids due to acute kidney injury and transaminitis. The patient was interested in hospice and palliative care was consulted and he requested to be a DNR/DNI. Unfortunately, around 00:13, the patient was found not breathing and was pronounced at 00:13. His son was at his bed-side. The patient was discharged to the home. Pertinent Studies: CT chest: extensive interstitial fibrotic lung changes with superimposed ground glass infiltrates. Small bilateral pleural effusions Resuscitation Status: 08/24/20 23:39 Resuscitation Status Routine Resuscitation Status: DNAR: NO Resuscitation Discussed with: family Lab Results: 08/24/20 13:33 08/24/20 13:33 Vitals: Weight Weight 112 lb 6.972 oz Physical Exam: . Problem Time Spent in discharge related activities (mins): 40 Plan Home Medications: Medication Instructions Recorded Confirmed Type Furosemide [Lasix] 40 mg PO DAILY 09/30/19 08/24/20 History Clopidogrel Bisulfate [Plavix] 75 mg PO DAILY 30 Days #30 tab 02/19/20 08/24/20 Rx Amiodarone [Cordarone] 200 mg PO DAILY 08/18/20 08/24/20 History Apixaban [Eliquis] 2.5 mg PO BID 08/18/20 08/24/20 History Allopurinol [Zyloprim] 100 mg PO DAILY tablet 08/22/20 08/24/20 Rx predniSONE 20 mg PO QAM 4 Days tab 08/22/20 08/24/20 Rx Cefdinir [Omnicef] 300 mg PO BID 08/24/20 08/24/20 History Levothyroxine Sodium 100 mcg PO DAILY 08/24/20 08/24/20 History [Levothyroxine] Allergies: lidocaine Adverse Reaction (Severe, Verified 08/24/20 23:28) injected Referrals: Joao Power MD [Primary Care Provider] - Disposition: Quality CORE MEASURES:: N/A
== END 2020-08-25 00:13 | disposition expired | DRG 196 ==
LOC: ERS 13:28 → ERHOLD 16:12 → 2NO 22:40
PROVIDERS: ADMIT Internal Medicine; ATTEND Internal Medicine
DX: J84.10 Pulmonary fibrosis, unspecified (principal); J18.9 Pneumonia, unspecified organism; J96.01 Acute respiratory failure with hypoxia; K72.00 Acute and subacute hepatic failure without coma; E43 Unspecified severe protein-calorie malnutrition; I50.20 Unspecified systolic (congestive) heart failure; N17.9 Acute kidney failure, unspecified; Z68.1 Body mass index [BMI] 19.9 or less, adult; Z66 Do not resuscitate; Z20.822 Contact with and (suspected) exposure to COVID-19; I48.91 Unspecified atrial fibrillation; E03.9 Hypothyroidism, unspecified; Z88.8 Allergy status to other drugs, medicaments and biological substances; Z79.01 Long term (current) use of anticoagulants; Z79.02 Long term (current) use of antithrombotics/antiplatelets; Z87.891 Personal history of nicotine dependence; Z95.810 Presence of automatic (implantable) cardiac defibrillator
CPT/HCPCS: 0240U; 36415; 71045; 71250; 80053; 82553; 83880; 84484; 85025; 93005; 96374; J2270; J2543; J2920; J3490